=== PATIENT | female | born 1960 | race African-American/Black ===

== ENCOUNTER 2025-06-12 10:26 | Inpatient (IN) | payer MEDICARE, OTHER, SELFPAY ==
--- OUTSIDE RECORDS SUMMARY | 2024-11-14 03:49 | XMS_ITS ---
Author Organization [facility] Address [address] [place] [phone] Care Team Providers Care Cleaning Porter Name Role Phone Aide Adair Unavailable Unavailabl KEISHA Camp Unavailable [phone] Medications Medication SIG (Take, Route, Frequency, Duration) Notes Start Date End Date Status Gabapentin 100 MG 2 capsule at bedtime Oral; Duration: 30 days 1 capsule in the am and 2 capsules at bedtime 1 am and 2 capsules Active Spironolactone 25 MG Oral; Duration: 90 Days Active Sertraline HCl 25 MG Oral; Duration: 90 Days Active Cefdinir 300 MG Oral; Duration: 3 Days Active rOPINIRole HCl 0.5 MG TAKE 1 TABLET BY MOUTH TWICE DAILY Oral; Duration: 30 Days Active Triamcinolone Acetonide 0.1 % APPLY TOPICALLY TWICE DAILY TO RECTAL AREA External; Duration: 25 Days Active Atorvastatin Calcium 20 MG TAKE 1 TABLET BY MOUTH DAILY Oral; Duration: 90 Days Active Levothyroxine Sodium 112 MCG TAKE 1 TABLET BY MOUTH EVERY MORNING ON EMPTY STOMACH Oral; Duration: 90 Days Active Atenolol 100 MG TAKE 1 TABLET BY MOUTH EVERY DAY Oral; Duration: 90 Days Active NIFEdipine ER 60 MG TAKE 1 TABLET BY MOUTH EVERY DAY Oral; Duration: 90 Days Active Pentoxifylline ER 400 MG TAKE 1 TABLET BY MOUTH DAILY FOR LEG OR CIRCULATION Oral; Duration: 30 Days Active Losartan Potassium 100 MG TAKE 1 TABLET BY MOUTH DAILY Oral; Duration: 90 Days Active NIFEdipine ER 90 MG Oral; Duration: 30 Days Active NIFEdipine ER 90 MG TAKE 1 TABLET BY MOUTH DAILY EVERY MORNING Oral; Duration: 30 Days Active Problems Problem Type SNOMED Code ICD Code Onset Dates Problem Status W/U Status Risk Notes Problem End stage renal disease (89459908) End stage renal disease (N18.6) Active confirmed Problem Dependence on renal dialysis (233389730) Dependence on renal dialysis (Z99.2) Active confirmed Problem Peripheral arterial occlusive disease (724684634) Peripheral arterial occlusive disease (I77.9) Active confirmed Problem Essential hypertension (63852129) Essential hypertension (I10) Active confirmed Problem Mixed hyperlipidemia (759923178) Mixed hyperlipidemia (E78.2) Active confirmed Problem Hyperparathyroidism due to renal insufficiency (05757306) Hyperparathyroid ism, 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) Active confirmed Problem Anemia in chronic kidney disease (545740734) Anemia in chronic kidney disease (D63.1) Active confirmed Problem Chronic kidney disease stage 5 (329642307) Chronic kidney disease, stage 5 (N18.5) Active confirmed Problem Internal hemorrhoids (10451485) Grade I hemorrhoids (K64.0) Active confirmed Encounters Encounter Location Date Provider Diagnosis [facility] [address] [phone] 11/14/2024 KEISHA ABRAMS End stage renal disease N18.6 ; Dependence on renal dialysis Z99.2 ; Peripheral arterial occlusive disease I77.9 ; Essential hypertension I10 ; Mixed hyperlipidemia E78.2 ; Hyperparathyroidism, secondary renal N25.81 ; Anemia in chronic kidney disease D63.1 ; Chronic kidney disease, stage 5 N18.5 and Grade I hemorrhoids K64.0 Assessments Encounter Date Diagnosis (ICD Code) Assessment Notes Treatment Notes Treatment Clinical Notes Section Notes 11/14/2024 End stage renal disease (ICD-10 - N18.6) 11/14/2024 Dependence on renal dialysis (ICD-10 - Z99.2) 11/14/2024 Peripheral arterial occlusive disease (ICD-10 - I77.9) 11/14/2024 Essential hypertension (ICD-10 - I10) 11/14/2024 Mixed hyperlipidemia (ICD-10 - E78.2) 11/14/2024 Hyperparathyroidism , secondary renal (ICD-10 - N25.81) 11/14/2024 Anemia in chronic kidney disease (ICD-10 - D63.1) 11/14/2024 Chronic kidney disease, stage 5 (ICD-10 - N18.5) 11/14/2024 Grade I hemorrhoids (ICD-10 - K64.0) Plan Of Treatment Medication Medication Name Sig Start Date Stop Date Notes Gabapentin 100 MG 2 capsule at bedtime Oral; Duration: 30 days 1 am and 2 capsules Progress Notes * Roseanna ESPINOZADOB:1960 ( 65 yo F)Acc No.[id number]:11/14/2024 Progress Notes Patient: Roseanna BRASWELL Provider: Misa Abrams MD :1960 A ge:64 Y S ex:Female Date:11/14/2024 Address:[address] [place] [address] Subjective: * Chief Complaints: * * Medical History: * Medications: T aking Losartan Potassium 100 MG Tablet TAKE 1 TABLET BY MOUTH DAILY Oral , Taking NIFEdipine ER 90 MG Tablet Extended Release 24 Hour TAKE 1 TABLET BY MOUTH DAILY EVERY MORNING Oral , Taking NIFEdipine ER 90 MG Tablet Extended Release 24 Hour Oral , Taking Pentoxifylline ER 400 MG Tablet Extended Release TAKE 1 TABLET BY MOUTH DAILY FOR LEG OR CIRCULATION Oral , Taking Triamcinolone Acetonide 0.1 % Cream APPLY TOPICALLY TWICE DAILY TO RECTAL AREA External , Taking Atorvastatin Calcium 20 MG Tablet TAKE 1 TABLET BY MOUTH DAILY Oral , Taking Gabapentin 100 MG Capsule TAKE ONE CAPSULE BY MOUTH AT BEDTIME FOR LEG Oral , Taking Levothyroxine Sodium 112 MCG Tablet TAKE 1 TABLET BY MOUTH EVERY MORNING ON EMPTY STOMACH Oral , Taking NIFEdipine ER 60 MG Tablet Extended Release 24 Hour TAKE 1 TABLET BY MOUTH EVERY DAY Oral , Taking Atenolol 100 MG Tablet TAKE 1 TABLET BY MOUTH EVERY DAY Oral , Taking Sertraline HCl 25 MG Tablet Oral , Taking Spironolactone 25 MG Tablet Oral , Taking rOPINIRole HCl 0.5 MG Tablet TAKE 1 TABLET BY MOUTH TWICE DAILY Oral , Taking Cefdinir 300 MG Capsule Oral Objective: * Vitals: Assessment: * Assessment: 1. E nd stage renal disease - N18.6 (Primary) 2 . D ependence on renal dialysis - Z99.2 3 . P eripheral arterial occlusive disease - I77.9 4 . E ssential hypertension - I10 5 . M ixed hyperlipidemia - E78.2 & #160; 6 . H yperparathyroidism, secondary renal - N25.81 7 . A nemia in chronic kidney disease - D63.1 8 . C hronic kidney disease, stage 5 - N18.5 ? 9 . G rade I hemorrhoids - K64.0 Plan: * Treatment: * Billing Information: * Visit Code: * Procedure Codes: * Electronic signature of ALLEN ABRAMS MD on 06/12/2025 at 12:09 PM [employer] Sign off status: Pending * Provider: Misa Abrams MD Date: 0 11/14/2024 Generated for Everett gray/Ga/Lela on: 1 08/12/2024 12:09 PM [employer]
--- OUTSIDE RECORDS SUMMARY | 2025-06-11 09:30 | XMS_ITS | Encounter Summary ---
Author Organization [facility] Healthcare Address [address] [place] [address] Care Team Providers Care Concrete Pipe Maker Name Role Phone Stacey Abrams MD Unavailable [phone] Aide Adair MD Primary Care Prov ider Jordy Avila MD Unavailable [phone] Reason for Visit * Diagnostic Imaging (Routine) - Closed Specialty Diagnoses / Procedures Referred By Barak rai Referred To Contact Diagnoses Encounter for surgical aftercare following surgery on the circulatory system Procedures US Arterial Doppler Lower Extremity Bilateral Iman Ortiz, DO [id number] [place] [address] Phone: tel: fax: [facility] (All Locations) Referral ID Status Reason Start Date Expiration Date Visits Re quested Visits Authorized [id number] Closed 03/12/2025 04/11/2026 1 1 Encounter Details Date Type Department Care Team (Latest Contact Info) Description 06/11/2025 9:30 AM COMPUTATIONAL PHYSICIST Ancillary Procedure [facility] Vascular Lab Vascular Surgery [address] [facility] [address] [place] [address] Encounter for surgical aftercare following surgery on the circulatory system Social History Tobacco Use Types Packs/Day Years Used Date Smoking Tobacco: Former Cigarettes 0.5 37 1 976 - 2013 Smokeless Tobacco: Never Alcohol Use Standard Drinks/Week Comments Yes 0 (1 standard drink = 0.6 oz pur e alcohol) 2 drinks per month OASIS D0700: Social Isolation Answer Da te Recorded Frequency of experiencing loneliness or isolatio n Never 03/13/2025 OASIS A1250: Transportation Answer Date Recorded Lack of Transportation (Medical) No 03/13/2025 Lack of Transportation (Non-Medical) No 03/13/2025 Patient Unable or Declines to Respond No 03/13/2025 OASIS B1300: Health Literacy Answer Augusto e Recorded Frequency of needing help to read materials from doctor or pharmacy Sometimes 03/13/2025 [facility] Utilities Answer Date Recorded In the past 12 months has th e electric, gas, oil, or water company threatened to shut off services in your home? No 01/03/2025 Social Connection and Isolation Panel Answer Date Recorded In a typical week, how many times do you talk on the phone with family, friends, or neighbors? More than three times a week 01/03/2025 How often do you get togethe r with friends or relatives? More than three times a week 01/03/2025 How often do you attend chur ch or samaritan services? More than 4 times per year 01/03/2025 Do you belong to any clubs o r organizations such as yazdanism groups, unions, fraternal or athletic groups, or school groups? No 01/03/2025 How often do you attend meet ings of the clubs or organizations you belong to? Never 01/03/2025 Are you , , di vorced, , never , or living with a partner? 01/03/2025 Overall Financial Resource Strain (CARDIA) Answe r Date Recorded How hard is it for you to pa y for the very basics like food, housing, medical care, and heating? Somewhat hard 01/03/2025 PHQ-2 Answer Date Recorded PHQ-2 Total Score (If total score is 3 or more points, staff should administer the PHQ-9) 2 01/03/2025 Hunger Vital Sign Answer Date Recorded Within the past 12 months, y ou worried that your food would run out before you got the money to buy more. Never true 01/04/20 25 Within the past 12 months, t he food you bought just didn't last and you didn't have money to get more. Never true 01/03/2025 PRAPARE - Transportation Answer Date Re corded In the past 12 months, has l ack of transportation kept you from medical appointments or from getting medications? No 12/21 In the past 12 months, has l ack of transportation kept you from meetings, work, or from getting things needed for daily living? No 01/03/2025 Housing Stability Vital Sign Answer Augusto e Recorded In the last 12 months, was t here a time when you were not able to pay the mortgage or rent on time? No 01/03/2025 In the past 12 months, how m any times have you moved where you were living? 0 01/03/2025 At any time in the past 12 m [facility], were you homeless or living in a longterm (including now)? No 01/03/2025 AUDIT-C Answer Date Recorded Q1: How often do you have a drink containing alc ohol? Monthly or less 03/12/2025 Q2: How many drinks containi ng alcohol do you have on a typical day when you are drinking? 1 or 2 03/12/2025 Q3: How often do you have si x or more drinks on one occasion? Never 03/12/2025 Personal Safety Answer Date Recorded Have you ever been in or are you currently in a harmful physical or emotional relationship or is someone making you feel afraid or unsafe? Denies 02/04/2025 Comments No Sex and Gender Information Value Date Recorded Sex Assigned at Not on file Legal Sex Female 11:41 PM COMPUTATIONAL PHYSICIST Gender Identity Not on file Sexual Orientation Not on file documented as of this encounter Functional Status documented as of this encounter Plan of Treatment Not on file documented as of this encounter Procedures Procedure Name Priority Date/Time Associated Diagnosis Comments VL US ARTERIAL DUPLEX LOWER EXTREMITY BILATERAL Routine 06/11/2025 11:15 AM COMPUTATIONAL PHYSICIST Encounter for surgical aftercare following surgery on the circulatory system US ARTERIAL DOPPLER LOWER EXTREMITY BILATERAL Routine 06/11/2025 11:15 AM COMPUTATIONAL PHYSICIST Encounter for surgical aftercare following surgery on the circulatory system documented in this encounter Results * US Arterial Doppler Lower Extremity Bilateral (06/11/2025 11:15 AM COMPUTATIONAL PHYSICIST) Anatomical Region Laterality Modality Vascular Bilateral Ultrasound 06/11/2025 10:2 5 AM COMPUTATIONAL PHYSICIST Narrative 06/11/2025 12:40 PM COMPUTATIONAL PHYSICIST [facility] - Department of Vascular Surgery, Vascular Laboratory [address] [place] [id number] Lower Extremity Arterial Doppler Report Patient Name: RICHELLE ESPINOZA : 1960 Study Date: 06/11/2025 10:25:00 AM Sex: F Tech: Kristen Andrews RVT Location: [facility] Provider: IMAN ROTIZ Quality: Adequate Order Provider: IMAN ORTIZ PROCEDURES: Arterial Report: Bilateral lower extremity arterial Doppler exam at rest. INDICATIONS: Z48.812 Encounter for surgical aftercare following surgery on the circulatory system. MEASUREMENTS: Right Value Units Left Value Units Rt Brachial Pressure 169 mmHg Lt Brachial Pressure 159 mmHg Rt PATIENT OFFICE REP Pressure >254 mmHg Lt PATIENT OFFICE REP Pressure >254 mmHg Rt DPA Pressure 113 mmHg Lt DPA Pressure >254 mmHg Rt 1st Digit Pressure 84 mmHg Lt 1st Digit Pressure 71 mmHg Rt PT SUZANNE Resting N/C Lt PT SUZANNE Resting N/C Rt AT SUZANNE Resting 0.67 Lt AT SUZANNE Resting N/C Rt Digit/Arm Index 0.5 Lt Digit/Arm Index 0.42 Right Value Units Left Value Units FINDINGS: Performing School Speech Language Pathologist: Harleen Andrews RVT. Right All Levels: The right common femoral, popliteal, posterior tibial and anterior tibial artery waveforms are monophasic. Right Digits: The right digit waveform is dampened. Left Common Femoral Artery Analysis: The common femoral artery waveform is biphasic. Left Popliteal Artery Analysis: The popliteal artery waveform is monophasic with preserved sharp upstroke. Left Posterior Tibial Artery Analysis: The posterior tibial artery waveform is monophasic with preserved sharp upstroke. Left Anterior Tibial Artery Analysis: The anterior tibial artery waveform is monophasic with preserved sharp upstroke. Left Digits: The left digit waveform is dampened. CONCLUSIONS: 1. The ankle arteries are non-compressible bilaterally which is consistent with arterial calcification thus the Ankle/Brachial Indices are not obtainable. 2. Bilateral Digit/Arm Indices are abnormal (for reference, abnormal ANDREI is <0.6). 3. There is evidence of right leg arterial insufficiency at the level of aorta- iliac, common femoral (inflow) arteries. 4. There is evidence of left leg arterial insufficiency at the level of femoral-popliteal arteries. HISTORY: 02/04/2025 Intravascular lithotripsy with stenting left superficial femoral artery and the popliteal artery Balloon angioplasty left posterior tibial artery Intravascular ultrasound left superficial femoral artery, popliteal artery, posterior tibial artery 12/09/24 Right superficial femoral artery angioplasty and drug-eluting stenting Right popliteal artery drug coated balloon angioplasty Right posterior tibial artery angioplasty and stenting Open right superficial femoral and deep femoral artery thrombectomy with Renard balloon Right iliofemoral endarterectomy with patch angioplasty with bovine pericardium onto the SFA Two incision 4 compartment fasciotomies of the right leg - PREVIOUS STUDIES: Previous study on 03/12/2025 Bilateral: N/C. DISCLAIMER: The study images and the final report will be retained in the patient chart by the Vascular Laboratory for the legally required time period. This chart constitutes the legal record of any testing performed. ATTESTATION: I have reviewed and interpreted the pertinent images and measurements of this study. I attest to the conclusions in the final report that is provided above. Electronically Signed By: Joe Haynes MD [facility] [phone] 06/11/2025 11:46:55 AM COMPUTATIONAL PHYSICIST Procedure Note Joe Haynes MD - 06/11/2025 [facility] - Department of Vascular Surgery,Vascular Laboratory [address] [place] [id number] Lower Extremity Arterial Doppler Report Patient Name: RICHELLE ESPINOZA : 1960 Study Date: 06/11/2025 10:25:00 AM Sex: F Tech: Kristen Andrews RVT Location: [facility] Provider: IMAN ORTIZ Quality: Adequate Order Provider: IMAN ORTIZ PROCEDURES: Arterial Report: Bilateral lower extremity arterial Doppler exam at rest. INDICATIONS: Z48.812 Encounter for surgical aftercare following surgery on thecirculatory system. MEASUREMENTS: Right Value Units Left Value Units Rt Brachial Pressure 169 mmHg Lt Brachial Pressure 159 mmHg Rt PATIENT OFFICE REP Pressure >254 mmHg Lt PATIENT OFFICE REP Pressure >254 mmHg Rt DPA Pressure 113 mmHg Lt DPA Pressure >254 mmHg Rt 1st Digit Pressure 84 mmHg Lt 1st Digit Pressure 71 mmHg Rt PT SUZANNE Resting N/C Lt PT SUZANNE Resting N/C Rt AT SUZANNE Resting 0.67 Lt AT SUZANNE Resting N/C Rt Digit/Arm Index 0.5 Lt Digit/Arm Index 0.42 Right Value Units Left Value Units FINDINGS: Performing School Speech Language Pathologist: Harleen Andrews RVT. Right All Levels: The right common femoral, popliteal, posterior tibial and anterior tibialartery waveforms are monophasic. Right Digits: The right digit waveform is dampened. Left Common Femoral Artery Analysis: The common femoral artery waveform is biphasic. Left Popliteal Artery Analysis: The popliteal artery waveform is monophasic with preserved sharpupstroke. Left Posterior Tibial Artery Analysis: The posterior tibial artery waveform is monophasic with preserved sharpupstroke. Left Anterior Tibial Artery Analysis: The anterior tibial artery waveform is monophasic with preserved sharpupstroke. Left Digits: The left digit waveform is dampened. CONCLUSIONS: 1. The ankle arteries are non-compressible bilaterally which is consistentwith arterial calcification thus the Ankle/Brachial Indices are not obtainable. 2. Bilateral Digit/Arm Indices are abnormal (for reference, abnormal DAIis <0.6). 3. There is evidence of right leg arterial insufficiency at the level ofaorta- iliac, common femoral (inflow) arteries. 4. There is evidence of left leg arterial insufficiency at the level offemoral-popliteal arteries. HISTORY: 02/04/2025 Intravascular lithotripsy with stenting left superficial femoral arteryand the popliteal artery Balloon angioplasty left posterior tibial artery Intravascular ultrasound left superficial femoral artery, poplitealartery, posterior tibial artery 12/09/24 Right superficial femoral artery angioplasty and drug-eluting stenting Right popliteal artery drug coated balloon angioplasty Right posterior tibial artery angioplasty and stenting Open right superficial femoral and deep femoral artery thrombectomy withFogarty balloon Right iliofemoral endarterectomy with patch angioplasty with bovinepericardium onto the SFA Two incision 4 compartment fasciotomies of the right leg - PREVIOUS STUDIES: Previous study on 03/12/2025 Bilateral: N/C. DISCLAIMER: The study images and the final report will be retained in the patientchart by the Vascular Laboratory for the legally required time period. This chartconstitutes the legal record of any testing performed. ATTESTATION: I have reviewed and interpreted the pertinent images and measurements ofthis study. I attest to the conclusions in the final report that is provided above. Electronically Signed By: Joe Haynes MD [facility] [phone] 06/11/2025 11:46:55 AM COMPUTATIONAL PHYSICIST Iman Ortiz DO IMG US PROCEDURES Final Result * US Arterial Duplex Lower Extremity Bilateral (06/11/2025 11:15 AM COMPUTATIONAL PHYSICIST) Anatomical Region Laterality Modality Vascular Bilateral Ultrasound 06/11/2025 10:0 3 AM COMPUTATIONAL PHYSICIST Narrative 06/11/2025 12:40 PM COMPUTATIONAL PHYSICIST [facility] - Department of Vascular Surgery, Vascular Laboratory [address] [place] [address] [place] Lower Extremity Arterial Duplex Report Patient Name: RICHELLE ESPINOZA : 1960 Study Date: 06/11/2025 10:03:25 AM Sex: F Tech: Annie ANDREWS Location: [facility] Provider: IMAN ORTIZ Quality: Adequate Order Provider: IMAN ORTIZ PROCEDURES: Arterial Report: Bilateral Lower Extremity Arterial Duplex Exam. INDICATIONS: Z48.812 Encounter for surgical aftercare following surgery on the circulatory system. MEASUREMENTS: Right Value Units Left Value Units Rt STATISTICAL REPORTING ANALYST Dst PSV 117 cm/s Lt STATISTICAL REPORTING ANALYST Dst PSV 154 cm/s Rt Profunda Prx PSV 0 cm/s Lt Profunda Dst PSV 431 cm/s Rt Superficial Femoral Prx PSV 109 cm/s Lt Superficial Femoral Prx PSV 299 cm/s Rt Superficial Femoral Mid PSV 86 cm/s Lt Superficial Femoral Mid PSV 68 cm/s Rt Superficial Femoral Dst PSV 135 cm/s Lt Superficial Femoral Dst PSV 55 cm/s Rt Pop Prx PSV 47 cm/s Lt Pop Prx PSV 55 cm/s Rt Post Tibial Dst PSV 61 cm/s Lt Post Tibial Dst PSV 63 cm/s Rt Ant Tibial Dst PSV 39 cm/s Lt Ant Tibial Dst PSV 18 cm/s Rt Peroneal Dst PSV 0 cm/s Lt Peroneal Dst PSV 0 cm/s Right Value Units Left Value Units FINDINGS: Performing School Speech Language Pathologist: Harleen Andrews RVT. Right Common Femoral: The right common femoral waveform is monophasic. Right Profunda: Unable to visualize the right profunda artery. Right Proximal Superficial Femoral Artery: The right proximal femoral artery waveform is monophasic. Right Mid Superficial Femoral Artery: The right mid femoral artery waveform is monophasic. Right Distal Superficial Femoral Artery: The right distal femoral artery waveform is monophasic. Right Popliteal: The right popliteal waveform is monophasic. Right Posterior Tibial: The right posterior tibial waveform is monophasic. Right Anterior Tibial: The right distal anterior tibial waveform is retrograde and antegrade at the ankle via collaterals. Right Peroneal: The right peroneal artery waveform is absent. Left Common Femoral: The left common femoral waveform is biphasic. Left Profunda: Systolic velocity ratio in the left profunda femoral artery is 4.2 which is consistent with a >75% stenosis. Left Proximal Superficial Femoral Artery: Systolic velocity ratio in the left proximal superficial femoral artery is 2.9 which is consistent with a 50-75% stenosis. Systolic velocity ratio in the left proximal superficial femoral artery (at the STENT EDGE) is 4.98 which is consistent with a >75% stenosis. Left Mid Superficial Femoral Artery: The left mid femoral artery stent is patent with monophasic waveforms. Left Distal Superficial Femoral Artery: The left distal femoral artery stent is patent with monophasic waveforms. Left Popliteal: The left popliteal waveform is monophasic. Left Posterior Tibial: The left posterior tibial waveform is monophasic. Left Anterior Tibial: The left anterior tibial waveform is monophasic with multiple collaterals noted. Left Peroneal: The left peroneal artery waveform is absent. CONCLUSIONS: 1. A >75% stenosis is noted on the left: proximal superficial femoral artery at the prox STENT EDGE. 2. The right distal anterior tibial waveform is retrograde and antegrade at the ankle via collaterals. 3. A 50-75% stenosis is noted on the left: proximal superficial femoral artery. 4. OCCLUDED BILATERAL peroneal arteries. 5. Unable to visualize the right profunda artery. HISTORY: 02/04/2025 Intravascular lithotripsy with stenting left superficial femoral artery and the popliteal artery Balloon angioplasty left posterior tibial artery Intravascular ultrasound left superficial femoral artery, popliteal artery, posterior tibial artery 12/09/24 Right superficial femoral artery angioplasty and drug-eluting stenting Right popliteal artery drug coated balloon angioplasty Right posterior tibial artery angioplasty and stenting Open right superficial femoral and deep femoral artery thrombectomy with Renard balloon Right iliofemoral endarterectomy with patch angioplasty with bovine pericardium onto the SFA Two incision 4 compartment fasciotomies of the right leg - PREVIOUS STUDIES: Previous study on the RLE on 01/15/2025 and on the LLE on 03/12/2025. DISCLAIMER: The study images and the final report will be retained in the patient chart by the Vascular Laboratory for the legally required time period. This chart constitutes the legal record of any testing performed. ATTESTATION: I have reviewed and interpreted the pertinent images and measurements of this study. I attest to the conclusions in the final report that is provided above. Electronically Signed By: Joe Haynes MD [facility] [phone] 06/11/2025 11:47:14 AM COMPUTATIONAL PHYSICIST Procedure Note Joe Haynes MD - 06/11/2025 [facility] - Department of Vascular Surgery,Vascular Laboratory [address] [place] [address] [place] Lower Extremity Arterial Duplex Report Patient Name: RICHELLE ESPINOZA : 1960 Study Date: 06/11/2025 10:03:25 AM Sex: F Tech: Annie SHANKSROSIE Location: [facility] Ref Provider: IMAN ORTIZ Quality: Adequate Order Provider: IMAN ORTIZ PROCEDURES: Arterial Report: Bilateral Lower Extremity Arterial Duplex Exam. INDICATIONS: Z48.812 Encounter for surgical aftercare following surgery on thecirculatory system. MEASUREMENTS: Right Value Units Left Value Units Rt STATISTICAL REPORTING ANALYST Dst PSV 117 cm/s Lt STATISTICAL REPORTING ANALYST Dst PSV 154 cm/s Rt Profunda Prx PSV 0 cm/s Lt Profunda Dst PSV 431 cm/s Rt Superficial Femoral Prx PSV 109 cm/s Lt Superficial Femoral Prx PSV 299cm/s Rt Superficial Femoral Mid PSV 86 cm/s Lt Superficial Femoral Mid PSV 68cm/s Rt Superficial Femoral Dst PSV 135 cm/s Lt Superficial Femoral Dst PSV 55cm/s Rt Pop Prx PSV 47 cm/s Lt Pop Prx PSV 55 cm/s Rt Post Tibial Dst PSV 61 cm/s Lt Post Tibial Dst PSV 63 cm/s Rt Ant Tibial Dst PSV 39 cm/s Lt Ant Tibial Dst PSV 18 cm/s Rt Peroneal Dst PSV 0 cm/s Lt Peroneal Dst PSV 0 cm/s Right Value Units Left Value Units FINDINGS: Performing School Speech Language Pathologist: Harleen Andrews RVT. Right Common Femoral: The right common femoral waveform is monophasic. Right Profunda: Unable to visualize the right profunda artery. Right Proximal Superficial Femoral Artery: The right proximal femoral artery waveform is monophasic. Right Mid Superficial Femoral Artery: The right mid femoral artery waveform is monophasic. Right Distal Superficial Femoral Artery: The right distal femoral artery waveform is monophasic. Right Popliteal: The right popliteal waveform is monophasic. Right Posterior Tibial: The right posterior tibial waveform is monophasic. Right Anterior Tibial: The right distal anterior tibial waveform is retrograde and antegrade atthe ankle via collaterals. Right Peroneal: The right peroneal artery waveform is absent. Left Common Femoral: The left common femoral waveform is biphasic. Left Profunda: Systolic velocity ratio in the left profunda femoral artery is 4.2 whichis consistent with a >75% stenosis. Left Proximal Superficial Femoral Artery: Systolic velocity ratio in the left proximal superficial femoral artery is2.9 which is consistent with a 50-75% stenosis. Systolic velocity ratio in the leftproximal superficial femoral artery (at the STENT EDGE) is 4.98 which is consistentwith a >75% stenosis. Left Mid Superficial Femoral Artery: The left mid femoral artery stent is patent with monophasic waveforms. Left Distal Superficial Femoral Artery: The left distal femoral artery stent is patent with monophasicwaveforms. Left Popliteal: The left popliteal waveform is monophasic. Left Posterior Tibial: The left posterior tibial waveform is monophasic. Left Anterior Tibial: The left anterior tibial waveform is monophasic with multiple collateralsnoted. Left Peroneal: The left peroneal artery waveform is absent. CONCLUSIONS: 1. A >75% stenosis is noted on the left: proximal superficial femoralartery at the prox STENT EDGE. 2. The right distal anterior tibial waveform is retrograde and antegradeat the ankle via collaterals. 3. A 50-75% stenosis is noted on the left: proximal superficial femoralartery. 4. OCCLUDED BILATERAL peroneal arteries. 5. Unable to visualize the right profunda artery. HISTORY: 02/04/2025 Intravascular lithotripsy with stenting left superficial femoral arteryand the popliteal artery Balloon angioplasty left posterior tibial artery Intravascular ultrasound left superficial femoral artery, poplitealartery, posterior tibial artery 12/09/24 Right superficial femoral artery angioplasty and drug-eluting stenting Right popliteal artery drug coated balloon angioplasty Right posterior tibial artery angioplasty and stenting Open right superficial femoral and deep femoral artery thrombectomy withFogarty balloon Right iliofemoral endarterectomy with patch angioplasty with bovinepericardium onto the SFA Two incision 4 compartment fasciotomies of the right leg - PREVIOUS STUDIES: Previous study on the RLE on 01/15/2025 and on the LLE on 03/12/2025. DISCLAIMER: The study images and the final report will be retained in the patientchart by the Vascular Laboratory for the legally required time period. This chartconstitutes the legal record of any testing performed. ATTESTATION: I have reviewed and interpreted the pertinent images and measurements ofthis study. I attest to the conclusions in the final report that is provided above. Electronically Signed By: Joe Haynes MD [facility] [phone] 06/11/2025 11:47:14 AM COMPUTATIONAL PHYSICIST Iman Ortiz DO [facility] PROCEDURES Final Result documented in this encounter Visit Diagnoses Diagnosis Encounter for surgical aftercare following surgery on the circulatory system documented in this encounter Care Teams Concrete Pipe Maker Relationship Specialty Start Date End Date Aide Adair MD PCP - General 09/17/20 Stacey Abrams MD Referring Physician Nephrology 10/05/19 Jordy Avila MD 2 [facility] [address] [address] Consulting Physician Vascular & Interven Rad 10/10/24 documented as of this encounter
--- OUTSIDE RECORDS SUMMARY | 2025-06-11 10:00 | XMS_ITS | Encounter Summary ---
Author Organization [facility] Address [address] [place] [address] Phone Care Team Providers Care Poultry Breeder Name Role Phone Stacey Abrams MD Unavailable [phone] Aide Adair MD Primary Care Prov ider Jordy Avila MD Unavailable [phone] Reason for Referral * MRI/CAT/PET Scan (Routine) - Pending Review Specialty Diagnoses / Procedures Referred By Contac t Referred To Contact Radiology Diagnoses PAD (peripheral artery disease) Procedures CTA Abdominal Aorta And Bilateral Iliofemoral Runoff Kev Ortiz DO [address] [facility] [address] [place] [address] Phone: tel: fax: [address] [phone] Referral ID Status Reason Start Date Expiration Date V isits Requested Visits Authorized [id number] Pending Review 06/11/2025 07/11/2026 1 1 FIXER Encounter Details Date Type Department Care Team (Late st Contact Info) Description 06/11/2025 10:00 AM BELT FIXER Office Visit [facility] Medicine Vascular Surgery [address] [facility] [address] [place] [address] Kev Ortiz, [address] [place] [address] PAD (peripheral artery disease) (Primary Dx); BRBPR (bright red blood per rectum) Social History Tobacco Use Types Packs/Day Years Used Date Smoking Tobacco: Former Cigarettes 0.5 37 1 2012 Smokeless Tobacco: Never Alcohol Use Standard Drinks/Week [...] materials from doctor or pharmacy Sometimes 03/13/2025 [facility] Utilities Answer Date Recorded In the past 12 months has e electric, gas, oil, or water [employer] threatened to shut off services in your [...] often do you attend chur ch or caodaism services? More than 4 times per year 01/03/2025 Do you belong to any clubs o r organizations such as mandaen groups, unions, fraternal or athletic groups, or [...] any time in the past 12 [facility], were you homeless or living in a assisted (including now)? No 01/03/2025 AUDIT-C Answer Date [...] on file Legal Sex Female 11:41 PM BELT FIXER Gender Identity Not on file Sexual Orientation Not on file documented as of this encounter Last Filed Vital Signs Vital Sign Reading Time Taken Comments Blood Pressure 129/76 06/11/2025 10:47 AM BELT FIXER Pulse 60 06/11/2025 10:47 AM BELT FIXER Temperature - - Respiratory Rate - - Oxygen Saturation - - Inhaled Oxygen Concentration - - Weight 61.2 kg (135 lb) 06/11/2025 10:47 AM BELT FIXER Height 157.5 cm (5' 2) 06/11/2025 10:47 AM BELT FIXER Body Mass Index 24.69 06/11/2025 10:47 AM BELT FIXER documented in this encounter Functional Status documented as of this encounter Progress Notes * Kev Ortiz, DO - 06/11/2025 10:45 AM CST Patient: Roseanna Espinoza Date of : 1960 Date of Service: 06/11/2025 Consult requested by: Aide Adair MD PCP: Aide Adair MD Follow up Visit CC: Roseanna Espinoza is a 65 y.o. female who presents today for post op visit HPI: Her right groin is healed. Swelling is much better in the extremities on diuretics. Still on PD. Able to mobilize around her house. Still uses wheelchair for further distances and outside of the home. Neuropathic symptoms have improved on gabapentin. No resting ischemic like pain or pedal wounds onthe feet. Still taking DAPT aspirin and plavix and high dose statin. Having some bright red blood per rectum that has been going on for a while and has not been checkedout. 02/04/2025: Intravascular lithotripsy with stenting left superficial femoral artery and the popliteal artery Balloon angioplasty left posterior tibial artery Intravascular ultrasound left superficial femoral artery, popliteal artery, posterior tibial artery 12/09/2024: Right SFA angioplasty and drug-eluting stenting, right popliteal artery drug coated balloon angioplasty, right posterior tibial artery angioplasty and stenting, open right superficial anddeep femoral artery thrombectomy with Renard balloon, right iliofemoral endarterectomy with patch a ngioplasty with bovine pericardium onto the SFA. Two incision 4 compartment fasciotomies of the right leg for acute limb ischemia [place] 2B with a motor and sensory loss after a Angio-Seal accesssite complication. History of left EIA stent angioplasty, right JHONY stent angioplasty and unsuccessful recanalization of left SFA on 12/03/2024 w/ Dr. Avila (cardiology, at [facility]). She is on peritoneal dialysis. CURRENT OUTPATIENT MEDICATIONS: Current Outpatient Medications Medication Sig Dispense Refill acetaminophen 500 mg capsule Take 2 capsules (1,000 mg total) by mouth every 6 (six) hours as needed for pain 30 tablet 0 aspirin 81 mg chewable tablet Take 1 tablet (81 mg total) by mouth daily 30 tablet 0 atenolol (TENORMIN) 100 mg tablet Take 1 tablet (100 mg total) by mouth every morning atorvastatin (LIPITOR) 20 mg tablet Take 1 tablet (20 mg total) by mouth nightly calcium carbonate (TUMS) 500 mg (200 mg elemental calcium) chewable tablet Take 1 tablet/chew tab (500 mg total) by mouth as needed for indigestion or heartburn clopidogreL (PLAVIX) 75 mg tablet Take 1 tablet (75 mg total) by mouth daily 30 tablet 0 ergocalciferol (VITAMIN D) 50,000 unit capsule Take 1 capsule (50,000 Units total) by mouth once a week for 7 doses 4 capsule 0 gabapentin (NEURONTIN) 100 mg capsule Take 1 capsule (100 mg total) by mouth nightly levothyroxine (SYNTHROID) 112 mcg tablet Take 1 tablet (112 mcg total) by mouth daily before breakfast losartan (COZAAR) 100 mg tablet Take 1 tablet (100 mg total) by mouth every morning methocarbamoL (ROBAXIN) 500 mg tablet Take 1 tablet (500 mg total) by mouth 3 (three) times a day as needed for muscle spasms 60 tablet 0 NIFEdipine CC 90 mg 24 hr tablet Take 1 tablet (90 mg total) by mouth daily ondansetron ODT (ZOFRAN-ODT) 4 mg disintegrating tablet Take 1 tablet (4 mg total) by mouth every 4(four) hours as needed for nausea 20 tablet 0 oxyCODONE (ROXICODONE) 5 mg immediate release tablet Take 1 tablet (5 mg total) by mouth every 6 (six) hours as needed for pain 20 tablet 0 pentoxifylline ER (TRENtal) 400 mg CR tablet Take 1 tablet (400 mg total) by mouth daily senna (SENOKOT) 8.6 mg tablet Take 1 tablet by mouth nightly 30 tablet 0 senna-docusate (PERICOLACE) 8.6-50 mg Take 1 tablet by mouth daily 30 tablet 0 sertraline (ZOLOFT) 25 mg tablet Take 1 tablet (25 mg total) by mouth every morning sevelamer (RENAGEL) 800 mg tablet Take 2 tablets (1,600 mg total) by mouth 3 (three) times a day with meals spironolactone (ALDACTONE) 25 mg tablet Take 1 tablet (25 mg total) by mouth daily triamcinolone (KENALOG) 0.1 % cream Apply topically 2 (two) times a day To rectal area 80 g 2 No current facility-administered medications for this visit. ALLERGIES: No Known Allergies PHYSICAL EXAM: Vitals BP 129/76 Pulse 60 Ht 157.5 cm (5' 2) Wt 61.2 kg (135 lb) LMP (LMP Unknown) BMI 24.69 kg/m?? Wt Readings from Last 1 Encounters: 06/11/25 61.2 kg (135 lb) 157.5 cm (5' 2) General: No acute distress ENT: Normocephalic Lungs: Non labored breathing. Cardiac: Normal rate. Regular rhythm. Abdomen: Soft. Extremities: trace edema of the BLE. Fasciotomy sites healed. No foot wounds. R groin scarred in. Vascular: peaked monophasic right PT and peaked monophasic L PT signal. Neurologic: A&Ox3 Psychiatric: Normal mood and affect. Review of Laboratory: N/A Review of Radiographic Studies: I personally reviewed the images: Bilateral lower extremity lower extremity arterial duplex and ROSA from 06/11/2025: SUZANNE non compressible. Toe pressure 84/71 mmHg. Left profunda with PSV 431 cm/sec consistent with >75% stenosis and proximal SFA elevated velocities 299 with a 75% stenosis at the proximal stent edge and >50% stenosis of the proximal SFA. Patent RLE stents without stenosis. LLE arterial duplex and ROSA from 03/12/2025: left profunda moderate stenosis. Patent SFA pop PT. Toepressure of 168 mm Hg on the right. Toe pressure of 136 mm Hg on the right. ABIs from 01/15/2025: Toe pressure of 77 mm Hg on the right. SUZANNE on the AT LLE of 0.56 with immeasurable toe pressure. ABIs from 01/05/2025: Deferred for fasciotomy wounds. Toe pressure of 83 mm Hg on the right. SUZANNE onthe left lower extremity 0.6 with a toe pressure of 25 mm Hg. 01/01/2025: CT angiogram of the abdomen and pelvis with bilateral lower extremity runoff demonstrating long segment SFA occlusion with reconstitution of the popliteal artery. There is heavy calcific disease of the tibial vessels. Her great saphenous veins bilaterally did not appear large enough andcaliber to support use as a bypass conduit. Assessment/Plan: (I73.9) PAD (peripheral artery disease) (primary encounter diagnosis) Plan: CTA Abdominal Aorta And Bilateral Iliofemoral Runoff (K62.5) BRBPR (bright red blood per rectum) 64-year-old female who is status post emergent revascularization of the RLE with groin wound breakdown status post debridement and wound vac placement who now presents for follow up. LLE complex revasc for CLTI with rest pain and wounds, now healed. Decreased from prior but normal BL toe pressures.No ischemic resting pain or wounds in the feet bilaterally. Continue other PAD medications as directed. Ideally, she probably should get a left femoral endart and profundaplasty. Don't have updated cross sectional imaging for case planning. She should get seen by her PCM about the bright red blood per rectum. RTC 1 month with CTA A/P AIF. Kev Ortiz DO Legal Document Assistant completed with [employer]. Legal Document Assistant variances may occur. FIXER documented in this encounter Plan of Treatment Scheduled Orders Name Type Priority Associated Diagnoses Orde r Schedule CTA Abdominal Aorta And Bilateral Iliofemoral Runoff Imaging Schedule Routine, Read Routine (OP Routine) PAD (peripheral artery disease) Expected: 07/11/2025, Expires: 12/09/2026 documented as of this encounter Visit Diagnoses Diagnosis PAD (peripheral artery disease)- Primary Unspecified peripheral vascular disease BRBPR (bright red blood per rectum) Hemorrhage of rectum and anus documented in this encounter Care Teams Poultry Breeder Relationship Specialty Start Date End Date Chandana-Aide Mahajan MD PCP - General 09/17/20 Stacey Abrams MD Referring Physician Nephrology 10/05/19 Jordy Avila MD [address] [place] [address] [place] [id number] Consulting Physician Vascular & Interven Rad 10/10/24 documented as of this encounter
[2025-06-12] VITALS (15 sets, daily range): BP systolic 86–148; BP diastolic 37–93; PULSE 60–87; RESP 14–18; TEMP 36.5–37; O2SAT 95–100; BMI 26.5
[2025-06-12 11:54] LABS: Immature Granulocyte Percent A 0.6 % (0-0.5); Lymphocytes Absolute Auto 1.41 K/mm3 (0.9-3.2); Mean Corpuscular HGB Conc 31.7 g/dl (32-36); Mean Corpuscular Hemoglobin 31.2 pg (26-34); Mean Corpuscular Volume 98.2 fl (80-100); Nucleated Red Blood Cells Absolute Auto 0.000 K/mm3 (0.0-0.012); Nucleated Red Blood Cells Perc 0.0 % (0.0-0.2); Platelet Count Result 288 k/mm3 (150-375); Red Blood Count 1.70 M/mm3 (4.2-5.4); White Blood Count 6.2 K/mm3 (4.5-10.0)
[2025-06-12 12:04] LABS: Hematocrit 16.7 % (37.0-47.0); Hemoglobin 5.3 g/dL (12.0-15.0)
--- OUTSIDE RECORDS SUMMARY | 2025-06-12 12:08 | XMS_ITS ---
Author Organization [facility] Physician Office Building [address] [place] [id number] Care Team Providers Care Spooling Supervisor Name Role Phone Stacey Abrams MD Unavailable [phone] Aide Adair MD Primary Care Prov ider Jordy Avila MD Unavailable [phone] Dialysis Access Sites Type Status Location Placement Date Removal Da te Peritoneal Dialysis Catheter Left lower abdomen Active Left Abdomen (side) - Lower Hemodialysis Cath Triple 12/10/24 Non-tunneled catheter Right Internal Jugular Inactive Right Neck (side) - Anterior 12/10/2024 12/12/2024 Procedures Procedure Name Priority Date/Time Associated Diagnosis Comments US ARTERIAL DOPPLER LOWER EXTREMITY BILATERAL Routine 06/11/2025 11:15 AM ARCADE ATTENDANT Encounter for surgical aftercare following surgery on the circulatory system VL US ARTERIAL DUPLEX LOWER EXTREMITY BILATERAL Routine 06/11/2025 11:15 AM ARCADE ATTENDANT Encounter for surgical aftercare following surgery on the circulatory system US ARTERIAL DUPLEX LOWER EXTREMITY LEFT LIMITED Routine 03/12/2025 11:50 AM CDT Encounter for surgical aftercare following surgery on the circulatory system US ARTERIAL DOPPLER LOWER EXTREMITY BILATERAL Routine 03/12/2025 11:50 AM CDT Encounter for surgical aftercare following surgery on the circulatory system COLONOSCOPY 12/08/2024 8:00 AM CDT HEPATITIS PANEL, ACUTE Routine 06/08/2017 8:08 PM ARCADE ATTENDANT from Last 3 Months or Most Recently Relevant to Health Maintenance Allergies No known active allergies Medications atenolol (TENORMIN) 100 mg tabletIndications:hy pertension Take 1 tablet (100 mg total) by mouth every morning Active losartan (COZAAR) 100 mg tabletIndications:hy pertension Take 1 tablet (100 mg total) by mouth every morning Active levothyroxine (SYNTHROID) 112 mcg tabletIndications:hy pothyroidism Take 1 tablet (112 mcg total) by mouth daily before breakfast Active sertraline (ZOLOFT) 25 mg tabletIndications:An xiety with Depression Take 1 tablet (25 mg total) by mouth every morning 023 Active spironolactone (ALDACTONE) 25 mg tabletIndications:As cites,hypertension Take 1 tablet (25 mg total) by mouth every morning Active sevelamer (RENAGEL) 800 mg tabletIndications:Re nal Osteodystrophy with Hyperphosphatemia Take 2 tablets (1,600 mg total) by mouth 3 (three) times a day with meals Active atorvastatin (LIPITOR) 20 mg tabletIndications:hy perlipidemia Take 1 tablet (20 mg total) by mouth nightly 025 Active triamcinolone (KENALOG) 0.1 % cream Apply topically 2 (two) times a day To rectal area 80 g 2 025 Active Additional Information Patient taking differently: 1 Applicationtopical2 times daily PRN, irritation, rash, To rectal area,Indications: Skin Inflammation, skin rash, Informant: Self, Reported on 02/04/2025 NIFEdipine CC 90 mg 24 hr tabletIndications:ht n Take 1 tablet (90 mg total) by mouth every morning 025 Active calcium carbonate (TUMS) 500 mg (200 mg elemental calcium) chewable tabletIndications:hy pocalcemia Take 1 tablet/chew tab (500 mg total) by mouth every morning Active acetaminophen 500 mg capsule Take 2 capsules (1,000 mg total) by mouth every 6 (six) hours as needed for pain 30 tablet 025 Active Additional Information Patient taking differently:1,000 mg oral Every 6 hours PRN, pain,Indications: Pain, Informant: Self, Reported on 02/04/2025 aspirin 81 mg chewable tablet Take 1 tablet (81 mg total) by mouth daily 30 tablet 025 2025 Active Additional Information Patient taking differently:81 mg oralEvery morning, Indications: Pain, Informant: Self, Reported on 02/04/2025 methocarbamoL (ROBAXIN) 500 mg tablet Take 1 tablet (500 mg total) by mouth 3 (three) times a day as needed for muscle spasms 60 tablet 025 Active Additional Information Patient taking differently:500 mg oral 3 times daily PRN, muscle spasms,Indications: Muscle Spasm, Informant: Self, Reported on 02/04/2025 ergocalciferol (VITAMIN D) 50,000 unit capsule Take 1 capsule (50,000 Units total) by mouth once a week for 7 doses 4 capsule 025 Active Additional Information Patient taking differently:50,000 Units oral Weekly,Take on Sunday, Indications: Vitamin D Deficiency, Informant: Self, Reported on 02/04/2025 senna (SENOKOT) 8.6 mg tablet Take 1 tablet by mouth nightly 30 tablet 025 2025 Active Additional Information Patient taking differently:1 tablet oral Nightly,Indications: constipation, Informant: Self, Reported on 02/04/2025 pentoxifylline ER (TRENtal) 400 mg CR tablet Take 1 tablet (400 mg total) by mouth daily 025 Active Additional Information Patient taking differently:400 mg oralEvery morning, Informant: Self, Reported on 02/04/2025 clopidogreL (PLAVIX) 75 mg tablet Take 1 tablet (75 mg total) by mouth daily 30 tablet 025 Active Additional Information Patient taking differently:75 mg oralEvery morning, Indications: Cerebral Thromboembolism Prevention, Thrombosis Prevention after PCI, Informant: Self, Reported on 02/04/2025 rOPINIRole (REQUIP) 0.5 mg tabletIndications:Re stless Legs Syndrome Take 1 tablet (0.5 mg total) by mouth nightly Active oxyCODONE (ROXICODONE) 5 mg immediate release tabletIndications:Pa in Take 1 tablet (5 mg total) by mouth every 6 (six) hours as needed for pain 30 tablet 025 Active gabapentin (NEURONTIN) 100 mg capsuleIndications:N europathic Pain Take 2 capsules (200 mg total) by mouth 3 (three) times a day 180 capsule 2 025 Active gabapentin (NEURONTIN) 100 mg capsuleIndications:D iabetic Peripheral Neuropathy Take 200 mg by mouth 2 (two) times a day. 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 -daily CBC -correct as needed Abscess 01/03/2025 Assessment & Plan (01/06/2025 7:10 AM CDT): - CT-demonstrated intramuscular abscesses within R tibialis anterior/gastrocnemius - Fasciotomy sites remain well-approximated w/o significant erythema nor palpable subjacent collections, no expressible discharge on exam - ACCS following, continue antibiotic management for now, non surgical. --- recommend application of Aquacel AG dressing to areas of superficial dehiscence on medial superior and lateral inferior fasciotomy incisions - 01/05 If still admitted next week, call ACCS back for possible suture removal. Wound dehiscence 01/01/2025 Assessment & Plan (01/08/2025 8:06 AM CDT): presents with R groin wound dehiscence. She first noticed wound break down 3 to 4 days ago and it has progressively worsened and now spans the entire wound. She has had some worsening wound discharge over this time which she describes as yellow/blood tinged. She denies any fevers/chills or symptoms of claudication in her RLE. She has mild tenderness over her incisions (fasciotomy/groin incisions). She continues to have LLE claudication. - OR 01/02 for right groin debridement and wound vac placement - Wound vac changed 01/05, some superficial bleeding following, s/p silver nitrate X2, monitor for hemostasis and then suture. S/p vac change 01/07, plan to change 01/09. - OR cultures growing: Klebsiella pneumoniae, E. Coli, mixed aerobic and anaerobic microorganisms -cont cefepime. Vanc last given 01/03, trough 15.7 yesterday, should be redosed with at 15 or lower. - ADAT - q4 NV checks and VS - Wound vac set up for outpatient SOC 01/11. - ID Final: - Discontinue vancomycin and cefepime - Start amoxicillin-clavulanate 500-125 every 12 hours adjusted for peritoneal dialysis - Start ciprofloxacin 500mg every 24 hours adjusted for peritoneal dialysis - Continue antibiotics complete 10-day treatment course (01/02-01/11) Depression 12/12/2024 Assessment & Plan (12/12/2024 10:03 AM CDT): home sertraline 25mg qAM ABLA (acute blood loss anemia) 12/12/2024 Assessment & Plan (12/14/2024 10:11 AM CDT): Acute on chronic. Chronic 2/2 ESRD. EBL 1.2 L in OR, s/p 5 unit RBC - Transfuse as needed, goal Hgb >7 - 12/11: Hgb 6.2 -> 1 unit RBC -> Hgb 8.3. No signs of active bleeding. Favor fluid shifts. - 12/14: Pt required 1u pRBC overnight with repeat Hg 6.7 afterwards. Giving another 1u pRBC Hypothyroidism 12/12/2024 Assessment & Plan (12/12/2024 10:07 AM CDT): -cont home synthroid History of fasciotomy 12/12/2024 Assessment & Plan (12/12/2024 10:07 AM CDT): Right calf fasciotomies, open - dressed with WTD, Kerlex, and BRUCE wraps. - Fasciotomies daily dressing change - 12/12: S/p fasciotomies closure. Vernon drain placed Acute lower limb ischemia 12/10/2024 Assessment & Plan (12/13/2024 11:21 AM CDT): 12/03 OR: Elective BLE angiogram, L EIA EDGE RUNNER+stent, R JHONY EDGE RUNNER+stent, unsuccessful recan of L SFA (Dr. Avila at [facility]) - 12/09 OR: R SFA cutdown and repair of PSA, R SFA to PT EDGE RUNNER/DCB. R GEOINT ANALYST and SFA endarterectomy. Right calf fasciotomies. - Plavix 300mg loading dose per tube now and 75mg daily starting tomorrow. - determine when to restart ASA - Q4hr NV checks BLE - Long-term, will be on DAPT - Right groin Provera wound vac in place - 12/12 OR ([facility]) - fasciotomy closure - 12/13: R groin wound vac taken down; punctate bleeding noted from site away from groin incision; covered with betadine and dry gauze Hypertensive urgency 12/08/2024 Lower GI bleed 12/07/2024 Assessment & Plan (12/12/2024 10:04 AM CDT): s/p colonoscopy 12/08 at : Large, bleeding external and internal hemorrhoids were found and suspected to be source of bleed. Scattered diverticula. Several biopsies performed. - Large (3cm) polyp removed during colonoscopy 12/08. Follow-up pathology. - Repeat colonoscopy in 1 year for surveillance. - originally scheduled for EUA and possible stapled hemorrhoidalpexy, possible hemorrhoidectomy with Dr. Marcus eng on 12/10 (cancelled given her transfer to [facility]) - CTM for bleeding, trend H/H Hemorrhoids- RECTAL, chronic bleeding 12/07/2024 Anemia- CKD, plus Rectal bleeding 12/07/2024 Acute post-hemorrhagic anemia 12/07/2024 Primary hypertension 11/09/2024 Assessment & Plan (01/05/2025 5:30 AM CDT): - Continue home atenolol, losartan, spironolactone, nifedipine -goal normotension - VS q 4 hrs and prn Assessment & Plan (12/12/2024 10:04 AM CDT): home p.o. losartan, nifedipine, atenolol, spironolactone, hydralizine 25 mg TID -held in the ICU. 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 - Nystatin oral stopped after IV ABX stopped Assessment & Plan (12/13/2024 11:21 AM CDT): peritoneal dialysis at home. Anuric at baseline - Nephrology consulted, started CRRT - hold home sevelamer - 12/12: Switched from CRRT to peritoneal dialysis - continue with PD per nephrology PAOD (peripheral arterial occlusive disease) Assessment & Plan (01/08/2025 8:02 AM CDT): s/p BLE angio via R GEOINT ANALYST access, w/ left EIA stent angioplasty, right JHONY stent angioplasty and unsuccessful recanalization of left SFA on 12/03 at OSH c/b R GEOINT ANALYST pseudoaneurysm with failed thrombin injection and subsequent RLE ALI s/p R SFA cutdown and repair of PSA, R SFA to PT EDGE RUNNER/DCB. R GEOINT ANALYST and SFA endarterectomy, 4 compartment fasciotomies (12/09) presents with R groin wound dehiscence. WBC normal, CT with simple fluid collection below dehiscence. - See wound dehiscense - Continue asa/ statin. Has been having trouble obtaining plavix per consult note. - Patient also noting symptoms on the left side. Notes toes are numb. - ROSA's completed, digit pressure 25. On further discussion, toes have been numb for weeks, would like to avoid intervention on other leg when currently with wound dehiscence and infection. Will address once recovered. No need for heparin gtt currently. Other idiopathic peripheral autonomic neuropathy Social History Tobacco Use Types Packs/Day Years Used Date Smoking Tobacco: Former Cigarettes 0.5 37 1 6 - 2012 Smokeless Tobacco: Never Alcohol Use Standard [...] materials from doctor or pharmacy Sometimes 03/13/2025 [facility] Utilities Answer Date Recorded In the past 12 months has e [employer], oil, or water [employer] threatened to shut off services in your [...] week 01/03/2025 How often do you attend [facility] or hoahaoism services? More than 4 times per year 01/03/2025 Do you belong to any clubs o r organizations such as restoration groups, unions, fraternal or athletic groups, or [...] any time in the past 12 m [facility], were you homeless or living in a chcf (including now)? No 01/03/2025 AUDIT-C Answer Date [...] on file Legal Sex Female 11:41 PM ARCADE ATTENDANT Gender Identity Not on file Sexual Orientation Not on file Last Filed Vital Signs Vital Sign Reading Time Taken Comments Blood Pressure 129/76 06/11/2025 10:47 AM ARCADE ATTENDANT Pulse 60 06/11/2025 10:47 AM ARCADE ATTENDANT Temperature 36.6 C (97.9 F) 03/12/2025 11:39 AM CDT Respiratory Rate 18 03/13/2025 11:30 AM CDT Oxygen Saturation 96% 03/05/2025 11:49 AM CDT Inhaled Oxygen Concentration - - Weight 61.2 kg (135 lb) 06/11/2025 10:47 AM ARCADE ATTENDANT Height 157.5 cm (5' 2) 06/11/2025 10:47 AM ARCADE ATTENDANT Body Mass Index 24.69 06/11/2025 10:47 AM ARCADE ATTENDANT Results * US Arterial Duplex Lower Extremity Bilateral (06/11/2025 11:15 AM ARCADE ATTENDANT) Anatomical Region Laterality Modality Vascular Bilateral Ultrasound 06/11/2025 10:0 3 AM ARCADE ATTENDANT Narrative 06/11/2025 12:40 PM ARCADE ATTENDANT [facility] - Department of Vascular Surgery, Vascular Laboratory [address] [place] [address] Ruby Lower Extremity Arterial Duplex Report Patient Name: RICHELLE ESPINOZA : 1960 Study Date: 06/11/2025 10:03:25 AM Sex: F Tech: Annie ANDREWS Location: [facility] Provider: IMAN ORTIZ Quality: Adequate Order Provider: IMAN ORTIZ PROCEDURES: Arterial Report: Bilateral Lower Extremity Arterial Duplex Exam. INDICATIONS: Z48.812 Encounter for surgical aftercare following surgery on the circulatory system. MEASUREMENTS: Right Value Units Left Value Units Rt GEOINT ANALYST Dst PSV 117 cm/s Lt GEOINT ANALYST Dst PSV 154 cm/s Rt Profunda [...] Value Units Left Value Units FINDINGS: Performing Audio/Video Technician: Harleen Andrews RVT. Right Common Femoral: The [...] above. Electronically Signed By: Joe Haynes MD [facility] [phone] 06/11/2025 11:47:14 AM ARCADE ATTENDANT Procedure Note Joe Haynes MD - 06/11/2025 [facility] - Department of Vascular Surgery,Vascular Laboratory [address] [place], [place] [id number] Ruby Lower Extremity Arterial Duplex Report Patient Name: RICHELLE ESPINOZA : 1960 Study Date: 06/11/2025 10:03:25 AM Sex: F Tech: Annie ANDREWS Location: [facility] Provider: IMAN ORTIZ Quality: Adequate Order Provider: IMAN ORTIZ PROCEDURES: Arterial Report: Bilateral Lower Extremity Arterial Duplex Exam. INDICATIONS: Z48.812 Encounter for surgical aftercare following surgery on thecirculatory system. MEASUREMENTS: Right Value Units Left Value Units Rt GEOINT ANALYST Dst PSV 117 cm/s Lt GEOINT ANALYST Dst PSV 154 cm/s Rt Profunda [...] Value Units Left Value Units FINDINGS: Performing Audio/Video Technician: Harleen Andrews RVT. Right Common Femoral: The [...] above. Electronically Signed By: Joe Haynes MD [facility] [phone] 06/11/2025 11:47:14 AM ARCADE ATTENDANT Iman Ortiz DO [facility] [place] PROCEDURES Final Result * US Arterial Doppler Lower Extremity Bilateral (06/11/2025 11:15 AM ARCADE ATTENDANT) Anatomical Region Laterality Modality Vascular Bilateral Ultrasound 06/11/2025 10:2 5 AM ARCADE ATTENDANT Narrative 06/11/2025 12:40 PM ARCADE ATTENDANT [facility] - Department of Vascular Surgery, Vascular Laboratory [address] [place] [address] Lower Extremity Arterial Doppler Report Patient Name: RICHELLE ESPINOZA : 1960 Study Date: 06/11/2025 10:25:00 AM Sex: F Tech: Kristen Andrews RVT Location: [facility] Provider: IMAN ORTIZ Quality: Adequate Order Provider: IMAN ORTIZ PROCEDURES: Arterial Report: Bilateral lower extremity arterial Doppler exam at rest. INDICATIONS: Z48.812 Encounter for surgical aftercare following surgery on the circulatory system. MEASUREMENTS: Right Value Units Left Value Units Rt Brachial Pressure 169 mmHg Lt Brachial Pressure 159 mmHg Rt EDGE RUNNER Pressure >254 mmHg Lt EDGE RUNNER Pressure >254 mmHg Rt DPA Pressure 113 mmHg Lt DPA Pressure >254 mmHg Rt 1st Digit Pressure 84 mmHg Lt 1st Digit Pressure 71 mmHg Rt PT SUZANNE Resting N/C Lt PT SUZANNE Resting N/C Rt AT SUZANNE Resting 0.67 Lt AT SUZANNE Resting N/C Rt Digit/Arm Index 0.5 Lt Digit/Arm Index 0.42 Right Value Units Left Value Units FINDINGS: Performing Audio/Video Technician: Harleen Andrews RVT. Right All Levels: The [...] above. Electronically Signed By: Joe Haynes MD [facility] [phone] 06/11/2025 11:46:55 AM ARCADE ATTENDANT Procedure Note Joe Haynes MD - 06/11/2025 [facility] - Department of Vascular Surgery,Vascular Laboratory [address] [place], [place] [id number] Lower Extremity Arterial Doppler Report Patient Name: RICHELLE ESPINOZA : 1960 Study Date: 06/11/2025 10:25:00 AM Sex: F Tech: Kristen Andrews [facility] Location: [facility] Ref Provider: IMAN ORTIZ Quality: Adequate Order Provider: IMAN ORTIZ PROCEDURES: Arterial Report: Bilateral lower extremity arterial Doppler exam at rest. INDICATIONS: Z48.812 Encounter for surgical aftercare following surgery on thecirculatory system. MEASUREMENTS: Right Value Units Left Value Units Rt Brachial Pressure 169 mmHg Lt Brachial Pressure 159 mmHg Rt EDGE RUNNER Pressure >254 mmHg Lt EDGE RUNNER Pressure >254 mmHg Rt DPA Pressure 113 mmHg Lt DPA Pressure >254 mmHg Rt 1st Digit Pressure 84 mmHg Lt 1st Digit Pressure 71 mmHg Rt PT SUZANNE Resting N/C Lt PT SUZANNE Resting N/C Rt AT SUZANNE Resting 0.67 Lt AT SUZANNE Resting N/C Rt Digit/Arm Index 0.5 Lt Digit/Arm Index 0.42 Right Value Units Left Value Units FINDINGS: Performing Audio/Video Technician: Harleen Andrews RVT. Right All Levels: The [...] above. Electronically Signed By: Joe Haynes MD [facility] [phone] 06/11/2025 11:46:55 AM ARCADE ATTENDANT Iman Ortiz DO [facility] US PROCEDURES Final Result * US Arterial Duplex Lower Extremity Left Limited (03/12/2025 11:50 AM CDT) Anatomical Region Laterality Modality Vascular Left Ultrasound 03/12/2025 10:5 3 AM CDT Narrative 03/13/2025 10:30 AM CDT [facility] - Department of Vascular Surgery, Vascular Laboratory [address] [place] [address] Ruby Lower Extremity Arterial Duplex Report Patient Name: RICHELLE ESPINOZA : 1960 Study Date: 03/12/2025 10:53:19 AM Gender: F Tech: BAD Location: [facility] Provider: IMAN ORTIZ Quality: Adequate Order Provider: IMAN ORTIZ PROCEDURES: Arterial Report: Left Lower Extremity Arterial Duplex Exam. INDICATIONS: Z48.812 Encounter for surgical aftercare following surgery on the circulatory system. MEASUREMENTS: Left Value Units Lt GEOINT ANALYST Dst PSV 131 cm/s Lt Profunda Dst PSV 399 cm/s Lt Superficial Femoral Prx PSV 171 cm/s Lt Superficial Femoral Mid PSV 48 cm/s Lt Superficial Femoral Dst PSV 36 cm/s Lt Pop Prx PSV 58 cm/s Lt Post Tibial Mid PSV 105 cm/s Lt Ant Tibial Mid PSV 18 cm/s Lt Peroneal Mid PSV 124 cm/s Left Value Units FINDINGS: Performing Audio/Video Technician: Uma Baron RVT. Left Common Femoral: The left common femoral waveform is multiphasic. Left Profunda: The left profunda waveform is monophasic. Systolic velocity ratio in the left profunda femoral artery is 3.66 which is consistent with a 50-75% stenosis. Left Proximal Superficial Femoral Artery: The left proximal femoral artery waveform is monophasic. Left Mid Superficial Femoral Artery: The left mid femoral artery waveform is monophasic. Left Distal Superficial Femoral Artery: The left distal femoral artery waveform is monophasic. Left Popliteal: The left popliteal waveform is monophasic. Left Posterior Tibial: The left posterior tibial waveform is monophasic. Left Anterior Tibial: The left anterior tibial waveform is monophasic. Left Peroneal: The left peroneal artery waveform is monophasic. CONCLUSIONS: 1. Duplex imaging of the left lower extremity [place] arteries reveals patent vessels with no flow limiting lesions identified. Flow velocities as measured above. See Ankle Brachial Index report. 2. Patent left superficial femoral and popliteal artery stent. HISTORY: 02/04/25 Intravascular lithotripsy with stenting left superficial femoral artery and the popliteal artery Balloon angioplasty left posterior tibial artery 12/09/24 Right superficial femoral artery angioplasty and drug-eluting stenting Right popliteal artery drug coated balloon angioplasty Right posterior tibial artery angioplasty and stenting Open right superficial femoral and deep femoral artery thrombectomy with Renard balloon Right iliofemoral endarterectomy with patch angioplasty with bovine pericardium onto the SFA Two incision 4 compartment fasciotomies of the right leg - PREVIOUS STUDIES: No previous studies for comparison. DISCLAIMER: The study images and the final [...] above. Electronically Signed By: Joe Haynes MD [facility] [phone] 03/13/2025 9:39:11 AM CDT Procedure Note Joe Haynes MD - 03/13/2025 [facility] - Department of Vascular Surgery,Vascular Laboratory [address] [place] [address] Ruby Lower Extremity Arterial Duplex Report Patient Name: RICHELLE ESPINOZA : 1960 Study Date: 03/12/2025 10:53:19 AM Gender: F Tech: BAD Location: [facility] Ref Provider: IMAN ORTIZ Quality: Adequate Order Provider: IMAN ORTIZ PROCEDURES: Arterial Report: Left Lower Extremity Arterial Duplex Exam. INDICATIONS: Z48.812 Encounter for surgical aftercare [place]. MEASUREMENTS: Left Value Units Lt GEOINT ANALYST Dst PSV 131 cm/s Lt Profunda Dst PSV 399 cm/s Lt Superficial Femoral Prx PSV 171 cm/s Lt Superficial Femoral Mid PSV 48 cm/s Lt Superficial Femoral Dst PSV 36 cm/s Lt Pop Prx PSV 58 cm/s Lt Post Tibial Mid PSV 105 cm/s Lt Ant Tibial Mid PSV 18 cm/s Lt Peroneal Mid PSV 124 cm/s Left Value Units FINDINGS: Performing Audio/Video Technician: Uma Baron RVT. Left Common Femoral: The left common femoral waveform is multiphasic. Left Profunda: The left profunda waveform is monophasic. Systolic velocity ratio in theleft profunda femoral artery is 3.66 which is consistent with a 50-75% stenosis. Left Proximal Superficial Femoral Artery: The left proximal femoral artery waveform is monophasic. Left Mid Superficial Femoral Artery: The left mid femoral artery waveform is monophasic. Left Distal Superficial Femoral Artery: The left distal femoral artery waveform is monophasic. Left Popliteal: The left popliteal waveform is monophasic. Left Posterior Tibial: The left posterior tibial waveform is monophasic. Left Anterior Tibial: The left anterior tibial waveform is monophasic. Left Peroneal: The left peroneal artery waveform is monophasic. CONCLUSIONS: 1. Duplex imaging of the left lower extremity chinik arteries revealspatent vessels with no flow limiting lesions identified. Flow velocities as measured above.See Ankle Brachial Index report. 2. Patent left superficial femoral and popliteal artery stent. HISTORY: 02/04/25 Intravascular lithotripsy with stenting left superficial femoral arteryand the popliteal artery Balloon angioplasty left posterior tibial artery 12/09/24 Right superficial femoral artery angioplasty and drug-eluting stenting Right popliteal artery drug coated balloon angioplasty Right posterior tibial artery angioplasty and stenting Open right superficial femoral and deep femoral artery thrombectomy withFogarty balloon Right iliofemoral endarterectomy with patch angioplasty with bovinepericardium onto the SFA Two incision 4 compartment fasciotomies of the right leg - PREVIOUS STUDIES: No previous studies for comparison. DISCLAIMER: The study images and the final [...] above. Electronically Signed By: Joe Haynes MD [facility] [phone] 03/13/2025 9:39:11 AM CDT Iman Ortiz DO IMG US PROCEDURES Final Result * US Arterial Doppler Lower Extremity Bilateral (03/12/2025 11:50 AM CDT) Anatomical Region Laterality Modality Vascular Bilateral Ultrasound 03/12/2025 11:0 4 AM CDT Narrative 03/13/2025 10:30 AM CDT [facility] - Department of Vascular Surgery, Vascular Laboratory [address] [place] [address] Lower Extremity Arterial Doppler Report Patient Name: RICHELLE ESPINOZA : 1960 Study Date: 03/12/2025 11:04:00 AM Gender: F Tech: Uma Baron [facility] Location: [facility] Provider: IMAN ORTIZ Quality: Adequate Order Provider: IMAN ORTIZ PROCEDURES: Arterial Report: Bilateral lower extremity arterial Doppler exam at rest. INDICATIONS: Z48.812 Encounter for surgical aftercare following surgery on the circulatory system. MEASUREMENTS: Right Value Units Left Value Units Rt Brachial Pressure 238 mmHg Lt Brachial Pressure 239 mmHg Rt EDGE RUNNER Pressure 255 mmHg Lt EDGE RUNNER Pressure 255 mmHg Rt DPA Pressure 191 mmHg Lt DPA Pressure 208 mmHg Rt 1st Digit Pressure 168 mmHg Lt 1st Digit Pressure 136 mmHg Rt PT SUZANNE Resting NC Lt PT SUZANNE Resting NC Rt AT SUZANNE Resting 0.8 Lt AT SUZANNE Resting 0.87 Rt Digit/Arm Index 0.7 Lt Digit/Arm Index 0.57 Right Value Units Left Value Units FINDINGS: Performing Audio/Video Technician: Uma Baron RVT. Right Common Femoral Artery Analysis: The common femoral artery waveform is multiphasic. Right Popliteal Artery Analysis: The popliteal waveform is multiphasic. Right Posterior Tibial Artery Analysis: The posterior tibial waveform is multiphasic. Right Anterior Tibial Artery Analysis: The anterior tibial waveform is monophasic. Left Common Femoral Artery Analysis: The common femoral artery waveform is multiphasic. Left Popliteal Artery Analysis: The popliteal waveform is monophasic. Left Posterior Tibial Artery Analysis: The posterior tibial waveform is monophasic. Left Anterior Tibial Artery Analysis: The anterior tibial waveform is monophasic. CONCLUSIONS: 1. The ankle arteries are non-compressible bilaterally which is consistent with arterial calcification thus the Ankle/Brachial Indices are not obtainable. 2. Right Digit/Arm Index is within normal limits (for reference, normal ANDREI is >0.6). 3. Left Digit/Arm Index is abnormal (for reference, abnormal ANDREI is <0.6). 4. There is evidence of right leg arterial insufficiency at the level of infrapopliteal arteries. 5. There is evidence of left leg arterial insufficiency at the level of femoral-popliteal arteries and infrapopliteal arteries. HISTORY: 02/04/2025 Intravascular lithotripsy with stenting [...] leg - PREVIOUS STUDIES: Previous study on 01/15/25 Rt=NC, Lt=1.36 - DISCLAIMER: The study images and the final [...] above. Electronically Signed By: Joe Haynes MD [facility] [phone] 03/13/2025 9:38:45 AM CDT Procedure Note Joe Haynes MD - 03/13/2025 [facility] - Department of Vascular Surgery,Vascular Laboratory [address] [place] [address] Lower Extremity Arterial Doppler Report Patient Name: RICHELLE ESPINOZA : 1960 Study Date: 03/12/2025 11:04:00 AM Gender: F Tech: Uma Baron [facility] Location: [facility] Provider: IMAN ORTIZ Quality: Adequate Order Provider: IMAN ORTIZ PROCEDURES: Arterial Report: Bilateral lower extremity arterial Doppler exam at rest. INDICATIONS: Z48.812 Encounter for surgical aftercare following surgery on therculatory system. MEASUREMENTS: Right Value Units Left Value Units Rt Brachial Pressure 238 mmHg Lt Brachial Pressure 239 mmHg Rt EDGE RUNNER Pressure 255 mmHg Lt EDGE RUNNER Pressure 255 mmHg Rt DPA Pressure 191 mmHg Lt DPA Pressure 208 mmHg Rt 1st Digit Pressure 168 mmHg Lt 1st Digit Pressure 136 mmHg Rt PT SUZANNE Resting NC Lt PT SUZANNE Resting NC Rt AT SUZANNE Resting 0.8 Lt AT SUZANNE Resting 0.87 Rt Digit/Arm Index 0.7 Lt Digit/Arm Index 0.57 Right Value Units Left Value Units FINDINGS: Performing Audio/Video Technician: Uma Baron RVT. Right Common Femoral Artery Analysis: The common femoral artery waveform is multiphasic. Right Popliteal Artery Analysis: The popliteal waveform is multiphasic. Right Posterior Tibial Artery Analysis: The posterior tibial waveform is multiphasic. Right Anterior Tibial Artery Analysis: The anterior tibial waveform is monophasic. Left Common Femoral Artery Analysis: The common femoral artery waveform is multiphasic. Left Popliteal Artery Analysis: The popliteal waveform is monophasic. Left Posterior Tibial Artery Analysis: The posterior tibial waveform is monophasic. Left Anterior Tibial Artery Analysis: The anterior tibial waveform is monophasic. CONCLUSIONS: 1. The ankle arteries are non-compressible bilaterally which is consistentwith arterial calcification thus the Ankle/Brachial Indices are not obtainable. 2. Right Digit/Arm Index is within normal limits (for reference, normalDAI is >0.6). 3. Left Digit/Arm Index is abnormal (for reference, abnormal ANDREI is<0.6). 4. There is evidence of right leg arterial insufficiency at the level ofinfrapopliteal arteries. 5. There is evidence of left leg arterial insufficiency at the level offemoral-popliteal arteries and infrapopliteal arteries. HISTORY: 02/04/2025 Intravascular lithotripsy with stenting [...] leg - PREVIOUS STUDIES: Previous study on 01/15/25 Rt=NC, Lt=1.36 - DISCLAIMER: The study images and the final [...] above. Electronically Signed By: Joe Haynes MD [facility] [phone] 03/13/2025 9:38:45 AM CDT Iman Ortiz DO [facility] PROCEDURES Final Result * Colonoscopy (12/08/2024 8:00 AM CDT) Anatomical Region Laterality Modality Other Narrative Procedure Note Mallory Pablo MD - 12/08/2024 8:00 AM CDT - [facility] Endoscopy Lab Patient Name: Richelle Espinoza Procedure Date: 12/08/2024 8:00 AM Date of : 1960 Admit Type: Inpatient Age: 64 Gender: Female Note Status: Finalized Attending MD: Mallory Pablo M.D. Procedure Date: 12/08/2024 Procedure: Colonoscopy Indications: Gastrointestinal bleeding, Abnormal CT of the GItract Providers: Mallory Pablo M.D., DIA Clement (Anesthesia Staff), Jenn Black RN, Abbi Herrera, Culinary Instructor Referring MD: Aide Adair M.D. Medicines: Monitored Anesthesia Care Complications: No immediate complications. Estimated Blood Loss: Estimated blood loss: none. Procedure: Pre-Anesthesia Assessment: - Prior to the procedure, a History and Physicalwas performed, and patient medications, allergies and sensitivities were reviewed. The patient'stolerance of previous anesthesia was reviewed. - The risks and benefits of the procedure and the sedation options and risks were discussed with the patient. All questions were answered and informed consent was obtained. - ASA Grade Assessment: III - A patient with severe systemic disease. After I obtained informed consent, the scope was passed under direct vision. Throughout theprocedure, the patient's blood pressure, pulse, and oxygen saturations were monitored continuously. The scopewas passed under direct vision. The Colonoscope was introduced through the anus and advanced to the the terminal ileum. The colonoscopy was performed with ease. The patient tolerated the procedure well. The quality of the bowel preparation was good. Thequality of the bowel preparation was evaluated using theBBPS ([place] Bowel Preparation Scale) with scores of:Right Colon = 3, Transverse Colon = 3 and Left Colon = 3 (entire mucosa seen well with no residual staining, small fragments of stool or opaque liquid). Thetotal BBPS score equals 9. The bowel preparation used was GoLYTELY via split dose instruction. Bowel prep was administered using a split dose. Findings: The terminal ileum appeared normal. A 30 mm polyp was found in the descending colon. The polyp was pedunculated. The polyp was removed with a hot snare. Resection and retrieval were complete. A 10 mm polyp was found in the cecum. The polyp was flat.Preparations were made for mucosal resection. Eleview was injected to raise the lesion. Snare mucosal resection was performed. Resection andretrieval were complete. A 5 mm polyp was found in the descending colon. The polyp wassessile. The polyp was removed with a hot snare. Resection and retrieval were complete. A 4 mm polyp was found in the rectum. The polyp was sessile. Thepolyp was removed with a jumbo cold forceps. Resection and retrieval were complete. There was a polypoid looking flat mucosa in ascending colon. Biopsywas taken. Bleeding external and internal hemorrhoids were found. Thehemorrhoids were large. Possible source of bleed Scattered small-mouthed diverticula were found in the sigmoid colonand descending colon. Impression: - The examined portion of the ileum was normal. - One 30 mm polyp in the descending colon, removed with a hot snare. Resected and retrieved. - One 10 mm polyp in the cecum, removed withmucosal resection. Resected and retrieved. - One 5 mm polyp in the descending colon, removedwith a hot snare. Resected and retrieved. - One 4 mm polyp in the rectum, removed with ajumbo cold forceps. Resected and retrieved. - Bleeding external and internal hemorrhoids. - Mucosal resection was performed. Resection and retrieval were complete. - There was a polypoid looking flat mucosa in ascending colon. Biopsy was taken. - Scattered small-mouthed diverticula were found in the sigmoid colon and descending colon. Recommendation: - Repeat colonoscopy in 1 year for surveillance. - Await pathology results. - Surgery consultation for bleeding hemorrhoids Procedure Code(s): --- Professional --- 75389, Colonoscopy, flexible; with endoscopicmucosal resection 74041, 59, Colonoscopy, flexible; with removal of tumor(s), polyp(s), or other lesion(s) by snare technique 39832, 59, Colonoscopy, flexible; with biopsy,single or multiple Diagnosis Code(s): --- Professional --- K64.8, Other hemorrhoids D12.0, Benign neoplasm of cecum D12.4, Benign neoplasm of descending colon D12.8, Benign neoplasm of rectum K92.2, Gastrointestinal hemorrhage, unspecified R93.3, Abnormal findings on diagnostic imaging of other parts of digestive tract CPT copyright 2020 [employer]. All rights reserved. The codes documented in this report are preliminary and upon zigzag appliquer reviewmay be revised to meet current compliance requirements. This report is electronically signed by Dr Art Pablo Mallory Pablo M.D. 12/08/2024 10:12:01 AM This report has been electronically signed by the physician. Number of Addenda: 0 Note Initiated On: 12/08/2024 8:00 AM Mallory Pablo MD ENDOSCOPY PROCEDURES Edite d Result - Final * Hepatitis panel, acute (06/08/2017 8:08 PM ARCADE ATTENDANT) Hep A IgM Negative Negative [facility] Hep B core IgM Negative Negative [facility] Hep C Ab Negative Negative [facility] HepBsAg Negative Negative [facility] Blood specimen (specimen) 06/08/2017 8:08 PM ARCADE ATTENDANT 06/08/2017 8:23 PM ARCADE ATTENDANT Stacey Abrams MD LAB MICROBIOLOGY - GENERAL ORDERABLES Final Result [facility] [id number] [place] [address] from Last 3 Months or Most Recently Relevant to Health Maintenance
--- OUTSIDE RECORDS SUMMARY | 2025-06-12 12:08 | XMS_ITS | Encounter Summary ---
Author Organization [facility] Address [address] [place] [address] Phone Care Team Providers Care Inker And Opaquer Name Role Phone Aide Adair MD Primary Care Prov ider Stacey Abrams MD Unavailable [phone] Stacey Abrams MD Primary Care Provider [phone] Aide Adair MD Primary Care Prov ider Pilar Velasco RN Unavailable [phone] Jordy Avila MD Unavailable [phone] Encounter Details Date Type Department Care Team (Latest Contact Info) Description 11/28/2017 Orders Only [facility] Scanning, Provider Social History Tobacco Use Types Packs/Day Years Used Date Smoking Tobacco: Former Smokeless Tobacco: Never Alcohol Use Standard Drinks/Week Comments Defer 0 (1 standard drink = 0.6 oz pur e alcohol) occasionally Comments Unknown Sex and Gender Information Value Date Recorded Sex Assigned at Not on file Legal Sex Female 11:41 PM CONVERTIBLE SOFA BEDSPRING TESTER Gender Identity Not on file Sexual Orientation Not on file documented as of this encounter Plan of Treatment Not on file documented as of this encounter Procedures Procedure Name Priority Date/Time Associated Diagnosis Comments SCAN - RADIOLOGY/IMAGING 11/28/2017 documented in this encounter Results * SCAN - RADIOLOGY/IMAGING (11/28/2017) Anatomical Region Laterality Modality Other us Provider Scanning Final Result documented in this encounter Visit Diagnoses Not on filedocumented in this encounter Additional Health Concerns Infection Onset Date Last Indicated Resolved Time Exposure, COVID-19 Comment:Added automatically based on COVID19 lab answers indicating exposure risk 09/07/2020 09/07/2020 09/07/2020 6:[address] COVID: Suspected 09/07/2020 09/07/2020 09/07/2020 6:34 PM CONVERTIBLE SOFA BEDSPRING TESTER COVID19 09/07/2020 09/07/2020 09/21/2020 3:07 AM CONVERTIBLE SOFA BEDSPRING TESTER COVID: Recovered Comment:Added based on recent COVID infection. 09/21/2020 12/21/2020 01/19/2021 3:05 AM C DT documented as of this encounter Care Teams Inker And Opaquer Relationship Specialty Start Date End Date Aide Adair MD PCP - General 06/08/17 09/06/20 Stacey Abrams MD PCP - General 09/07/20 09/16/20 Aide Adair MD PCP - General 09/17/20 Stacey Abrams MD Referring Physician Nephrology 10/05/19 Pilar Velasco, RN [address] [facility] [address] [place] [address] Health Unit Supervisor 01/21/24 4 Jordy Avila MD [address] [place] [address] DR SARKAR [address] [place] [address] Consulting Physician Vascular & Interven Rad 10/10/24 documented as of this encounter
--- OUTSIDE RECORDS SUMMARY | 2025-06-12 12:08 | XMS_ITS | Patient Health Record ---
Author Organization [facility] Address [address] [place] [id number] Care Team Providers Care Lay Out Maker Name Role Phone Aide Adair Unavailable Unavailabl e KEISHA JOHNSON Unavailable [phone] Reason For Referral No Information Medications Medication SIG (Take, Route, Frequency, Duration) Notes Start Date End Date Status Triamcinolone Acetonide 0.1 % APPLY TOPICALLY TWICE DAILY TO RECTAL AREA External; Duration: 25 Days Active Gabapentin 100 MG 2 capsule at bedtime Oral; Duration: 30 days 1 capsule in the am and 2 capsules at bedtime 1 am and 2 capsules Active Pentoxifylline ER 400 MG TAKE 1 TABLET BY MOUTH DAILY FOR LEG OR CIRCULATION Oral; Duration: 30 Days Active Atorvastatin Calcium 20 MG TAKE [...] EVERY DAY Oral; Duration: 90 Days Active Losartan Potassium 100 MG TAKE 1 TABLET BY MOUTH DAILY Oral; Duration: 90 Days Active Spironolactone 25 MG Oral; Duration: 90 Days Active Sertraline HCl 25 MG Oral; Duration: 90 Days Active NIFEdipine ER 90 MG Oral; Duration: 30 Days Active Cefdinir 300 MG Oral; Duration: 3 Days Active NIFEdipine ER 90 MG TAKE 1 TABLET BY MOUTH DAILY EVERY MORNING Oral; Duration: 30 Days Active rOPINIRole HCl 0.5 MG TAKE 1 TABLET BY MOUTH TWICE DAILY Oral; Duration: 30 Days Active Problems Problem Type SNOMED Code ICD Code Onset Dates Problem Status W/U Status Risk Notes Problem Anemia in chronic kidney disease (021208523) Anemia in chronic kidney disease (D63.1) Active confirmed Problem Mixed hyperlipidemia (159450647) Mixed hyperlipidemia (E78.2) Active confirmed Problem Chronic kidney disease stage 5 (884901060) Chronic kidney disease, stage 5 (N18.5) Active confirmed Problem End stage renal disease (35556467) End stage renal disease (N18.6) Active confirmed Problem Dependence on renal dialysis (887171822) Dependence on renal dialysis (Z99.2) Active confirmed Problem Essential hypertension (44798691) Essential hypertension (I10) Active confirmed Problem Hyperparathyroidism due to renal insufficiency (55185571) Hyperparathyroid ism, 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) Active confirmed Problem Peripheral arterial occlusive disease (602463099) Peripheral arterial occlusive disease (I77.9) Active confirmed Problem Internal hemorrhoids (27310466) Grade I hemorrhoids (K64.0) Active confirmed Encounters Encounter Location Date Provider Diagnosis [facility] [address] [id number] 11/14/2024 KEISHA JOHNSON End stage renal disease N18.6 ; Dependence [...] hemorrhoids (ICD-10 - K64.0) Plan Of Treatment No Information Insurance Providers Payer Name Payer Address Payer Phone Subscriber Number Group Number Insured Name Patient Relationship to Insured Coverage Start Date Coverage End Date [employer] [address] [address] [place] [address] [id number] Roseanna Espinoza Self - patient is the insured
--- OUTSIDE RECORDS SUMMARY | 2025-06-12 12:08 | XMS_ITS | Encounter Summary ---
Author Organization [facility] Healthcare Address [address] [place] [address] Care Team Providers Care Recruiting Administrator Name Role Phone Aide Adair MD Primary Care Prov ider Stacey Abrams MD Unavailable [phone] Stacey Abrams MD Primary Care Provider [phone] Aide Adair MD Primary Care Prov ider Pilar Velasco RN Unavailable [phone] Jordy Avila MD Unavailable [phone] Encounter Details Date Type Department Care Team (Late st Contact Info) Description 06/28/2017 Orders Only [facility] [address] [place], [place] [id number] Stacey Abrams MD [address] [place] [address] Social History Tobacco Use Types Packs/Day Years Used Date Smoking Tobacco: Never Assessed Comments Unknown Sex and Gender Information Value Date Recorded Sex Assigned at Not on file Legal Sex Female 11:41 PM CENTRIFUGAL SUPERVISOR Gender Identity Not on file Sexual Orientation Not on file documented as of this encounter Plan of Treatment Not on file documented as of this encounter Visit Diagnoses Not on filedocumented in this encounter Additional Health Concerns Infection Onset Date Last Indicated Resolved Time Exposure, COVID-19 Comment:Added automatically based on COVID19 lab answers indicating exposure risk 09/07/2020 09/07/2020 09/07/2020 6:[address] COVID: Suspected 09/07/2020 09/07/2020 09/07/2020 6:34 PM CENTRIFUGAL SUPERVISOR COVID19 09/07/2020 09/07/2020 09/21/2020 3:07 AM CENTRIFUGAL SUPERVISOR COVID: Recovered Comment:Added based on recent COVID infection. 09/21/2020 12/21/2020 01/19/2021 3:05 AM C DT documented as of this encounter Care Teams Recruiting Administrator Relationship Specialty Start Date End Date Aide Adair MD PCP - General 06/08/17 09/06/20 Stacey Abrams MD PCP - General 09/07/20 09/16/20 Aide Adair MD PCP - General 09/17/20 Stacey Abrams MD Referring Physician Nephrology 10/05/19 Pilar Velasco, RN [address] [facility] [address] [place] [address] Special Shopper 01/21/24 4 Jordy Avila MD [address] [facility] [address] S[address] [place] [address] Consulting Physician Vascular & Interven Rad 10/10/24 documented as of this encounter
--- OUTSIDE RECORDS SUMMARY | 2025-06-12 12:08 | XMS_ITS | Encounter Summary ---
Author Organization [facility] Address [address] [place] [address] Phone Care Team Providers Care High Raw Sugar Boiler Name Role Phone Aide Adair MD Primary Care Prov ider Stacey Abrams MD Unavailable [phone] Stacey Abrams MD Primary Care Provider [phone] Aide Adair MD Primary Care Prov ider Pilar Velasco RN Unavailable [phone] Jordy Avila MD Unavailable [phone] Encounter Details Date Type Department Care Team (Late st Contact Info) Description 07/17/2019 Telephone [facility] Medicine Scheduling [address] [place] [address] Aliya Juan Social History Tobacco Use Types Packs/Day Years Used Date Smoking Tobacco: Former Cigarettes Q uit: 2008 Smokeless Tobacco: Never Alcohol Use Standard Drinks/Week Comments Yes 0 (1 standard drink = 0.6 oz pur e alcohol) occasionally Comments Unknown Sex and Gender Information Value Date Recorded Sex Assigned at Not on file Legal Sex Female 11:41 PM CONTINUOUS IMPROVEMENT SPECIALIST Gender Identity Not on file Sexual Orientation [...] COVID: Suspected 09/07/2020 09/07/2020 09/07/2020 6:34 PM CONTINUOUS IMPROVEMENT SPECIALIST COVID19 09/07/2020 09/07/2020 09/21/2020 3:07 AM CONTINUOUS IMPROVEMENT SPECIALIST COVID: Recovered Comment:Added based on recent COVID infection. 09/21/2020 12/21/2020 01/19/2021 3:05 AM C DT documented as of this encounter Care Teams High Raw Sugar Boiler Relationship Specialty Start Date End Date Aide Adair MD PCP - General 06/08/17 09/06/20 Stacey Abrams MD PCP - General 09/07/20 09/16/20 Aide Adair MD PCP - General 09/17/20 Stacey Abrams MD Referring Physician Nephrology 10/05/19 Pilar Velasco, RN [address] [facility] [address] [place] [address] Side Door Man 01/21/24 4 Jordy Avila MD [address] [place] [address] DR SARK[address] [place] [address] Consulting Physician Vascular & Interven Rad 10/10/24 documented as of this encounter
--- OUTSIDE RECORDS SUMMARY | 2025-06-12 12:09 | XMS_ITS | Encounter Summary ---
Author Organization [facility] Address [address] [place] [address] Phone Care Team Providers Care Hydraulic Rock Drill Operator Name Role Phone Aide Adair MD Primary Care Prov ider Stacey Abrams MD Unavailable [phone] Stacey Abrams MD Primary Care Provider [phone] Aide Adair MD Primary Care Prov ider Pilar Velasco RN Unavailable [phone] Jordy Avila MD Unavailable [phone] Encounter Details Date Type Department Care Team (Latest Contact Info) Description 11/25/2019 Orders Only [facility] Scanning, Provider Social History Tobacco Use Types Packs/Day Years Used Date Smoking Tobacco: Former Cigarettes 0.5 31 1 976 - 2007 Smokeless Tobacco: Never Alcohol Use Standard Drinks/Week Comments Yes 0 (1 standard drink = 0.6 oz pur e alcohol) 2 drinks per month Comments No Sex and Gender Information Value Date Recorded Sex Assigned at Not on file Legal Sex Female 11:41 PM FILTER CHANGING TECHNICIAN Gender Identity Not on file Sexual Orientation Not on file documented as of this encounter Plan of Treatment Not on file documented as of this encounter Procedures Procedure Name Priority Date/Time Associated Diagnosis Comments SCAN - LABS 11/25/2019 documented in this encounter Results * SCAN - LABS (11/25/2019) us Provider Scanning Final Result documented in this encounter Visit Diagnoses Not on filedocumented in this encounter Additional Health Concerns Infection Onset Date Last Indicated Resolved Time Exposure, COVID-19 Comment:Added automatically based on COVID19 lab answers indicating exposure risk 09/07/2020 09/07/2020 09/07/2020 6:[address] COVID: Suspected 09/07/2020 09/07/2020 09/07/2020 6:34 PM FILTER CHANGING TECHNICIAN COVID19 09/07/2020 09/07/2020 09/21/2020 3:07 AM FILTER CHANGING TECHNICIAN COVID: Recovered Comment:Added based on recent COVID infection. 09/21/2020 12/21/2020 01/19/2021 3:05 AM C DT documented as of this encounter Care Teams Hydraulic Rock Drill Operator Relationship Specialty Start Date End Date Aide Adair MD PCP - General 06/08/17 09/06/20 Stacey Abrams MD PCP - General 09/07/20 09/16/20 Aide Adair MD PCP - General 09/17/20 Stacey Abrams MD Referring Physician Nephrology 10/05/19 Pilar Velasco, RN [address] [facility] [address] [place] [id number] [employer] Professor 01/21/24 4 Jordy Avila MD [address] [place] [address] [address] [place] [address] Consulting Physician Vascular & Interven Rad 10/10/24 documented as of this encounter
--- OUTSIDE RECORDS SUMMARY | 2025-06-12 12:09 | XMS_ITS | Encounter Summary ---
Author Organization [facility] [employer] [facility] Address [address] [place] [phone] Phone Care Team Providers Care Housetrailer Servicer Name Role Phone Aide Adair MD Primary Care Provider Reason for Referral * Consultation (Routine) - Closed Specialty Diagnoses / Procedures Referred By Contac t Referred To Contact Cardiology Diagnoses Peripheral pulmonary artery disease (HCC) Stacey Abrams MD Bitar, Saad, MD [address] [place] [id number] Referral ID Status Reason Start Date Expiration Date V isits Requested Visits Authorized [id number] Closed Specialty Services Required 12/29/2021 12/29/2022 1 1 Encounter Details Date Type Department Care Team (Late st Contact Info) Description 12/29/2021 Ancillary Orders [place] As Seen on TV [address] [address] Stacey Abrams MD [address] [place] [phone] Peripheral pulmonary artery disease (HCC) (Primary Dx) Social History Tobacco Use Types Packs/Day Years Used Date Smoking Tobacco: Never Assessed Sex and Gender Information Value Date Recorded Sex Assigned at Not on file Legal Sex Male 2:49 PM EDT Gender Identity Not on file Sexual Orientation Not on file documented as of this encounter Plan of Treatment Scheduled Referrals Name Type Priority Associated Diagnoses Order Schedule Ambulatory referral to Cardiology Outpatient Referral Routine Peripheral pulmonary artery disease (HCC) Expected: 12/29/2021, Expires: 01/28/2023 documented as of this encounter Visit Diagnoses Diagnosis Peripheral pulmonary artery disease (HCC)- Primary documented in this encounter Care Teams Housetrailer Servicer Relationship Specialty Start Date End Date Aide Adair MD [address] [place] [address] PCP - General Family Medicine 12/08/24 documented as of this encounter
--- OUTSIDE RECORDS SUMMARY | 2025-06-12 12:09 | XMS_ITS | Clinical Summary ---
Author Organization [facility] Physician Office Building [address] [place] [id number] Care Team Providers Care Supervisor Home Energy Consultant Name Role Phone Stacey Abrams MD Unavailable [phone] Aide Adair MD Primary Care Prov ider Jordy Avila MD Unavailable [phone] Allergies No known active allergies Medications atenolol [...] tablet (20 mg total) by mouth nightly Active triamcinolone (KENALOG) 0.1 % cream Apply topically 2 (two) times a day To rectal area 80 g 2 Active Additional Information Patient taking differently: 1 Applicationtopical2 times daily PRN, irritation, rash, To rectal area,Indications: Skin Inflammation, skin rash, Informant: Self, Reported on 02/04/2025 NIFEdipine CC 90 mg 24 hr tabletIndications:ht n Take 1 tablet (90 mg total) by mouth every morning Active calcium carbonate (TUMS) 500 mg (200 mg elemental calcium) chewable tabletIndications:hy pocalcemia Take 1 tablet/chew tab (500 mg total) by mouth every morning Active acetaminophen 500 mg capsule Take 2 capsules (1,000 mg total) by mouth every 6 (six) hours as needed for pain 30 tablet Active Additional Information Patient taking differently:1,000 mg [...] 12/03 OR: Elective BLE angiogram, L EIA CARBON CAPTURE POWER PLANT OPERATOR+stent, R JHONY CARBON CAPTURE POWER PLANT OPERATOR+stent, unsuccessful recan of L SFA (Dr. Avila at [facility]) - 12/09 OR: R SFA cutdown and repair of PSA, R SFA to PT CARBON CAPTURE POWER PLANT OPERATOR/DCB. R BRACELET MAKER NOVELTY and SFA endarterectomy. Right calf fasciotomies. - Plavix 300mg loading dose per tube now and 75mg daily starting tomorrow. - determine when to restart ASA - Q4hr NV checks BLE - Long-term, will be on DAPT - Right groin Provera wound vac in place - 12/12 OR ([facility]) - fasciotomy closure - 12/13: R groin [...] on 12/10 (cancelled given her transfer to [facility]) - CTM for bleeding, trend H/H Hemorrhoids- [...] AM CDT): s/p BLE angio via R BRACELET MAKER NOVELTY access, w/ left EIA stent angioplasty, right JHONY stent angioplasty and unsuccessful recanalization of left SFA on 12/03 at [facility] c/b R BRACELET MAKER NOVELTY pseudoaneurysm with failed thrombin injection and subsequent RLE ALI s/p R SFA cutdown and repair of PSA, R SFA to PT CARBON CAPTURE POWER PLANT OPERATOR/DCB. R BRACELET MAKER NOVELTY and SFA endarterectomy, 4 compartment fasciotomies (12/09) [...] gtt currently. Other idiopathic peripheral autonomic neuropathy Resolved Problems Problem Noted Date Diagnosed Date Resolved Date PVD (peripheral vascular disease) 12/09/2024 12/12/2024 Femoral artery pseudo-aneurysm, right 12/08/2024 12/12/2024 Thyrotoxicosis without thyroid storm 04/21/2019 12/09/2019 Subclinical hyperthyroidism 04/21/2019 12/09/2019 Encounters Date Type Department Care Team Description 06/11/2025 10:00 AM CAR BODY DESIGNER Office Visit [facility] Medicine Vascular Surgery [address] [place] [address] Medical Office Building [address] [place] [address] Iman Koroma, PAD (peripheral artery disease) (Primary Dx); BRBPR (bright red blood per rectum) 06/11/2025 9:30 AM CAR BODY DESIGNER Ancillary Procedure [facility] Vascular Lab Vascular Surgery [address] [place] [address] [address] [place], [place] [address] Encounter for surgical aftercare following surgery on the circulatory system 06/10/2025 Telephone [facility] Vascular Surgery [address] [facility] Office Building [address] [place] [address] Iman Koroma, Scheduling Appointments 03/13/2025 11:00 AM CDT Home Care Visit [address] [place] [address] [address] [place] [address] Jacey Cowart, PT PT OASIS DISCHARGE 03/12/2025 11:45 AM CDT Office Visit [facility] Vascular Surgery [facility] Office Building [address] [place], [place] [address] Iman Koroma, Encounter for surgical aftercare following surgery on the circulatory system (Primary Dx); PAD (peripheral artery disease) 03/12/2025 11:00 AM CDT Ancillary Procedure [facility] Vascular Lab Vascular Surgery [address] [place] [address] [address] [place], [place] [address] Encounter for surgical aftercare following surgery on the circulatory system from Last 3 Months Surgical History Surgery Date Site/Laterality Comments REMOVE TUNNELED LINE 06/29/2017 Left PERITONEAL CATHETER INSERTION 07/23/2016 - 07/22/2017 HYSTERECTOMY 07/23/2002 - 07/22/2003 SECTION 07/23/1989 - 07/22/19901988, 1987 COLON SURGERY 12/08/2024 CARDIAC CATHETERIZATION 12/03/2024 N/A Procedure: PERIPHERAL ANGIOGRAPHY; Surgeon: Jordy Avila MD; Location: [facility]ORD[facility]; Service: Cardiovascular; Laterality: N/A; Hydration orders added. Unsure if they will be needed. superficial femoral artery and femoral popliteal vessels in both sides Medical devices from this surgery are in the Medical Devices section. FEMORAL EMBOLECTOMY/THROMBECTOMY 12/09/2024 Pelvis/Right Procedure: Open Thrombectomy Superficial and Deep Femoral Artery; Surgeon: Iman Koroma DO; Location: [facility] OR POD 3; Service: Vascular; Laterality: Right; Medical devices from this surgery are in the Medical Devices section. WOUND DEBRIDEMENT 01/02/2025 Left LLE groin wound debridement LEG SURGERY 12/12/2024 Left LLE wound closure THROMBECTOMY 12/09/2024 Left LLE/femoral ANGIOPLASTY 12/03/2024 THYROIDECTOMY 10/03/2019 total CARDIAC CATHETERIZATION 02/04/2025 Left Procedure: CARBON CAPTURE POWER PLANT OPERATOR LITHOTRIPSY FEM/POP ARTERY [id number]; Surgeon: Iman Koroma DO; Location: [facility] OR POD 3; Service: Vascular; Laterality: Left; Medical devices from this surgery are in the Medical Devices section. Medical History Medical History Date Comments Hypertension Steatosis of liver Thyroid disease PAOD (peripheral arterial occlusive disease) Hypertension Goiter with tracheal co mpression ESRD (end stage renal disease) Subclinical hyperthyroidism History of peritoneal dialysis 2016 Thyroid nodule Tracheal deviation Pulmonary nodule Sleep apnea Hemorrhoids- RECTAL, chronic bleeding 12/07/2024 Anemia- CKD, plus Rectal bleeding 12/07/2024 Family History Medical History Relation Name Comments No Known Problems Brother 1 No Known Problems Brother 2 Stroke Mother Family history of cerebrovascular accident (CVA) - (Added by TW Conv) No Known Problems Sister 1 No Known Problems Sister 2 No Known Problems Sister 3 Anesthesia problems Neg Hx Relation Name Status Comments Brother 1 Alive 2 brothers Brother 2 Alive Father Mother Sister 1 Alive 3 sisters Sister 2 Alive Sister 3 Alive Social History Tobacco Use Types Packs/Day Years [...] materials from doctor or pharmacy Sometimes 03/13/2025 [facility] Util[facility] Answer Date Recorded In [...] often do you attend chur ch or jain services? More than 4 times per year 01/03/2025 Do you belong to any clubs o r organizations such as rastafarian groups, unions, fraternal or athletic groups, or [...] any time in the past 12 m [facility], were you homeless or living in a jail (including now)? No 01/03/2025 AUDIT-C Answer Date [...] on file Legal Sex Female 11:41 PM CAR BODY DESIGNER Gender Identity Not on file Sexual Orientation Not on file Last Filed Vital Signs Vital Sign Reading Time Taken Comments Blood Pressure 129/76 06/11/2025 10:47 AM CAR BODY DESIGNER Pulse 60 06/11/2025 10:47 AM CAR BODY DESIGNER Temperature 36.6 C (97.9 F) 03/12/2025 11:39 AM CDT Respiratory Rate 18 03/13/2025 11:30 AM CDT Oxygen Saturation 96% 03/05/2025 11:49 AM CDT Inhaled Oxygen Concentration - - Weight 61.2 kg (135 lb) 06/11/2025 10:47 AM CAR BODY DESIGNER Height 157.5 cm (5' 2) 06/11/2025 10:47 AM CAR BODY DESIGNER Body Mass Index 24.69 06/11/2025 10:47 AM CAR BODY DESIGNER Plan of Treatment Health Maintenance Due Date Last Done Comments DTaP/Tdap/Td Vaccine (1 - Tdap) 1972 Regular Well Visit/Exam 18-64 1979 Pneumococcal vaccine <65 (1 of 2 - PCV) 1980 Zoster Vaccine (1 of 2) 1980 Covid-19 Vaccine (3 - season) 2025, 11/01/2020 Influenza Vaccine (#1) 2025 Breast Cancer Screening-Mammogram 04/08/2025 024, 05/20/2020 Depression Screening 01/01/2026 01/01/2025, 12/10/19 Colon Cancer Screening-Colonoscopy 12/08/20342024 Hepatitis B Screening Completed 06/08/2017 Hepatitis C Screening Completed 06/08/2017 Colon Cancer Screening-CT Colonography Discontinued Colon Cancer Screening-DNA Stool Discontinued 12/09/19 Colon Cancer Screening-FIT Discontinued 12/08/2024 Colon Cancer Screening-Sigmoidoscopy Discontinued 11/20 Medical Devices Implanted Type Area Clinical Informaticist Device Identifier Shelf Expiration Date Model / Serial / Lot [employer] Randy Stent Drug Eluting S Travador Mr 4.71b38co [id number] - Aixa - [id number] Implanted:Qty : 1 on 12/09/2024 by Iman Koroma DO at [facility] Stent Right: Superficial Femoral Artery [employer] Randy [id number] 03/26/2025 [id number] / EO / [id number] [employer] Zilver Ptx 6mm 120mm 125cm Drug Elute Otw Delivery System [id number] - [employer] - [id number] Implanted:Qty : 1 on 12/09/2024 by Iman Koroma DO at [facility] Stent Right: Superficial Femoral Artery [employer] [id number] 09/26/2026 [id number] / EO / [id number] [employer] Zilver Ptx 6mm 140mm 125cm Otw Drug Elute Delivery System [id number] - [employer]ixa - [id number] Implanted:Qty : 1 on 12/09/2024 by Iman Koroma DO at [facility] Stent Right: Superficial Femoral Artery [employer] [id number] 09/29/2026 [id number] / EO / [id number] [employer] Randy Stent Peripheral Vascular Over The Wire Dayana [id number] Stainless Steel [id number] - [employer] - [id number] Implanted:Qty : 1 on 12/09/2024 by Iman Koorma DO at [facility] Stent Right: Superficial Femoral Artery [employer] Randy [id number] 06/04/2026 [id number] / EO / [id number] [employer] Randy Stent Drug Eluting S Megatron Us Mr [id number] - Aixa - [id number] Implanted:Qty : 1 on 12/09/2024 by Iman Koroma DO at [facility] Stent Right: Superficial Femoral Artery [employer] Randy [id number] 12/16/2025 [id number] / EO / [id number] [employer] Stent Peripheral Over The Wire Zilver Ptx [id number] 25cm Nitinol [id number] - [id number] Implanted:Qty : 1 on 02/04/2025 by Iman Koroma DO at [facility] Stent Left: Superficial Femoral Artery [employer] [id number] 10/13/2026 [id number] / / [id number] [employer] Zilver Ptx 7mm 120mm 125cm Drug Elute Otw Delivery System [id number] - [id number] Implanted:Qty : 1 on 02/04/2025 by Iman Koroma DO at [facility] Stent Left: Superficial Femoral Artery [employer] [id number] 11/27/2025 [id number] / / [id number] [employer] Stent Peripheral Over The Wire Zilver Ptx [id number] 5cm Nitinol [id number] - [id number] Implanted:Qty : 1 on 02/04/2025 by Iman Koroma DO at [facility] Stent Left: Superficial Femoral Artery [employer] [id number] 05/27/2026 [id number] / / [id number] [employer] Randy Stent Peripheral [id number] m 6fr Self-Expandin g Blue Strl [id number] - [id number] Implanted:Qty : 1 on 12/03/2024 by Jordy Avila MD at [facility] [employer] Randy 05/13/2029 [id number] / / [id number] [employer] Randy Epic Od10 Mm L40 Mm L155 Cm Self Expand Iliac Artery L120 Cm Stent Vascular Nitinol Accepts 6 Fr Sheath [id number] - [id number] Implanted:Qty : 1 on 12/03/2024 by Jordy Avila MD at [facility] [employer] [facility] 12/30/2028 [id number] / / [id number] Sellaround Angio-Seal Vip 6fr Closere Device [id number] - [id number] Implanted:Qty : 1 on 12/03/2024 by Jordy Avila MD at [facility] [employer] [id number] / / Pate Vascular Stent Scaffold [id number] Resorbble Drug-Eluting Everolimus [id number] - [id number] Implanted:Qty : 1 on 12/09/2024 by Iman Koroma DO at [facility] Pate Vascular [id number] 03/16/2026 21655 50- 38 / / [id number] DSTLD Patch Vascuguard 0.88cm [id number] - [id number] - [id number] Implanted:Qty : 1 on 12/09/2024 by Iman Koroma DO at [facility] Right: Common Femoral Artery DSTLD [id number] 07/25/2026 [id number] / [id number] / [id number] Procedures Procedure Name Priority Date/Time Associated Diagnosis Comments US ARTERIAL DOPPLER LOWER EXTREMITY BILATERAL Routine 06/11/2025 11:15 AM CAR BODY DESIGNER Encounter for surgical aftercare following surgery on the circulatory system VL US ARTERIAL DUPLEX LOWER EXTREMITY BILATERAL Routine 06/11/2025 11:15 AM CAR BODY DESIGNER Encounter for surgical aftercare following surgery on [...] HEPATITIS PANEL, ACUTE Routine 06/08/2017 8:08 PM CAR BODY DESIGNER from Last 3 Months or Most Recently Relevant to Health Maintenance Results * US Arterial Duplex Lower Extremity Bilateral (06/11/2025 11:15 AM CAR BODY DESIGNER) Anatomical Region Laterality Modality Vascular Bilateral Ultrasound 06/11/2025 10:0 3 AM CAR BODY DESIGNER Narrative 06/11/2025 12:40 PM CAR BODY DESIGNER [facility] - Department of Vascular Surgery, Vascular Laboratory [address] [place] [address] [place] Lower Extremity Arterial Duplex Report Patient Name: RICHLELE ESPINOZA : 1960 Study Date: 06/11/2025 10:03:25 AM Sex: F Tech: Annie SHANKSEdwin Location: [facility] Provider: IMAN KOROMA Quality: Adequate Order Provider: IMAN KOROMA PROCEDURES: Arterial Report: Bilateral Lower Extremity Arterial Duplex Exam. INDICATIONS: Z48.812 Encounter for surgical aftercare following surgery on the circulatory system. MEASUREMENTS: Right Value Units Left Value Units Rt BRACELET MAKER NOVELTY Dst PSV 117 cm/s Lt BRACELET MAKER NOVELTY Dst PSV 154 cm/s Rt Profunda Prx [...] Value Units Left Value Units FINDINGS: Performing Back Roller: Harleen Drake RVT. Right Common Femoral: The right common [...] above. Electronically Signed By: Joe Haynes MD [facility] [phone] 06/11/2025 11:47:14 AM CAR BODY DESIGNER Procedure Note Joe Haynes MD - 06/11/2025 [facility] - Department of Vascular Surgery,Vascular Laboratory [address] [place] [address] [place] Lower Extremity Arterial Duplex Report Patient Name: RICHELLE ESPINOZA : 1960 Study Date: 06/11/2025 10:03:25 AM Sex: F Tech: Annie DRAKE Location: [facility] Ref Provider: IMAN KOROMA Quality: Adequate Order Provider: IMAN KOROMA PROCEDURES: Arterial Report: Bilateral Lower Extremity Arterial Duplex Exam. INDICATIONS: Z48.812 Encounter for surgical aftercare following surgery on therculatory system. MEASUREMENTS: Right Value Units Left Value Units Rt BRACELET MAKER NOVELTY Dst PSV 117 cm/s Lt BRACELET MAKER NOVELTY Dst PSV 154 cm/s Rt Profunda Prx [...] Value Units Left Value Units FINDINGS: Performing Back Roller: Harleen Drake RVT. Right Common Femoral: The right common [...] above. Electronically Signed By: Joe Haynes MD [facility] [phone] 06/11/2025 11:47:14 AM CAR BODY DESIGNER Iman Koroma DO IMG US PROCEDURES Final Result * US Arterial Doppler Lower Extremity Bilateral (06/11/2025 11:15 AM CAR BODY DESIGNER) Anatomical Region Laterality Modality Vascular Bilateral Ultrasound 06/11/2025 10:2 5 AM CAR BODY DESIGNER Narrative 06/11/2025 12:40 PM CAR BODY DESIGNER [facility] - Department of Vascular Surgery, Vascular Laboratory [address] [place] [address] Lower Extremity Arterial Doppler Report Patient Name: RICHELLE ESPINOZA : 1960 Study Date: 06/11/2025 10:25:00 AM Sex: F Tech: Kristen Drake [facility] Location: [facility] Provider: IMAN KOROMA Quality: Adequate Order Provider: IMAN KOROMA PROCEDURES: Arterial Report: Bilateral lower extremity arterial Doppler exam at rest. INDICATIONS: Z48.812 Encounter for surgical aftercare following surgery on the circulatory system. MEASUREMENTS: Right Value Units Left Value Units Rt Brachial Pressure 169 mmHg Lt Brachial Pressure 159 mmHg Rt CARBON CAPTURE POWER PLANT OPERATOR Pressure >254 mmHg Lt CARBON CAPTURE POWER PLANT OPERATOR Pressure >254 mmHg Rt DPA Pressure 113 mmHg Lt DPA Pressure >254 mmHg Rt 1st Digit Pressure 84 mmHg Lt 1st Digit Pressure 71 mmHg Rt PT SUZANNE Resting N/C Lt PT SUZANNE Resting N/C Rt AT SUZANNE Resting 0.67 Lt AT SUZANNE Resting N/C Rt Digit/Arm Index 0.5 Lt Digit/Arm Index 0.42 Right Value Units Left Value Units FINDINGS: Performing Back Roller: Harleen Drake RVT. Right All Levels: The right common [...] above. Electronically Signed By: Joe Haynes MD [facility] [phone] 06/11/2025 11:46:55 AM CAR BODY DESIGNER Procedure Note Joe Haynes MD - 06/11/2025 [facility] - Department of Vascular Surgery,Vascular Laboratory [address] [place] [address] Lower Extremity Arterial Doppler Report Patient Name: RICHELLE ESPINOZA : 1960 Study Date: 06/11/2025 10:25:00 AM Sex: F Tech: Kristen Drake [facility] Location: [facility] Provider: IMAN KOROMA Quality: Adequate Order Provider: IMAN KOROMA PROCEDURES: Arterial Report: Bilateral lower extremity arterial Doppler exam at rest. INDICATIONS: Z48.812 Encounter for surgical aftercare following surgery on thecirculatory system. MEASUREMENTS: Right Value Units Left Value Units Rt Brachial Pressure 169 mmHg Lt Brachial Pressure 159 mmHg Rt CARBON CAPTURE POWER PLANT OPERATOR Pressure >254 mmHg Lt CARBON CAPTURE POWER PLANT OPERATOR Pressure >254 mmHg Rt DPA Pressure 113 mmHg Lt DPA Pressure >254 mmHg Rt 1st Digit Pressure 84 mmHg Lt 1st Digit Pressure 71 mmHg Rt PT SUZANNE Resting N/C Lt PT SUZANNE Resting N/C Rt AT SUZANNE Resting 0.67 Lt AT SUZANNE Resting N/C Rt Digit/Arm Index 0.5 Lt Digit/Arm Index 0.42 Right Value Units Left Value Units FINDINGS: Performing Back Roller: Harleen Drake RVT. Right All Levels: The right common [...] above. Electronically Signed By: Joe Haynes MD [facility] [phone] 06/11/2025 11:46:55 AM CAR BODY DESIGNER us Iman Koroma DO IMG US PROCEDURES Final Result * US Arterial Duplex Lower Extremity Left Limited (03/12/2025 11:50 AM CDT) Anatomical Region Laterality Modality Vascular Left Ultrasound 03/12/2025 10:5 3 AM CDT Narrative 03/13/2025 10:30 AM CDT [facility] - Department of Vascular Surgery, Vascular Laboratory [address] [place] [address] [place] Lower Extremity Arterial Duplex Report Patient Name: RICHELLE ESPINOZA : 1960 Study Date: 03/12/2025 10:53:19 AM Gender: F Tech: BAD Location: [facility] Ref Provider: IMAN KOROMA Quality: Adequate Order Provider: IMAN KOROMA PROCEDURES: Arterial Report: Left Lower Extremity Arterial Duplex Exam. INDICATIONS: Z48.812 Encounter for surgical aftercare following surgery on the circulatory system. MEASUREMENTS: Left Value Units Lt BRACELET MAKER NOVELTY Dst PSV 131 cm/s Lt Profunda Dst PSV 399 cm/s Lt Superficial Femoral Prx PSV 171 cm/s Lt Superficial Femoral Mid PSV 48 cm/s Lt Superficial Femoral Dst PSV 36 cm/s Lt Pop Prx PSV 58 cm/s Lt Post Tibial Mid PSV 105 cm/s Lt Ant Tibial Mid PSV 18 cm/s Lt Peroneal Mid PSV 124 cm/s Left Value Units FINDINGS: Performing Back Roller: Uma Baron RVT. Left Common Femoral: The [...] Duplex imaging of the left lower extremity [place] arteries reveals patent vessels with no flow [...] above. Electronically Signed By: Joe Haynes MD [facility] [phone] 03/13/2025 9:39:11 AM CDT Procedure Note Joe Haynes MD - 03/13/2025 [facility] - Department of Vascular Surgery,Vascular Laboratory [address] [place] [address] [place] Lower Extremity Arterial Duplex Report Patient Name: RICHELLE ESPINOZA : 1960 Study Date: 03/12/2025 10:53:19 AM Gender: F Tech: BAD Location: [facility] Provider: IMAN KOROMA Quality: Adequate Order Provider: IMAN KOROMA PROCEDURES: Arterial Report: Left Lower Extremity Arterial Duplex Exam. INDICATIONS: Z48.812 Encounter for surgical aftercare following surgery on thecirculatory system. MEASUREMENTS: Left Value Units Lt BRACELET MAKER NOVELTY Dst PSV 131 cm/s Lt Profunda Dst PSV 399 cm/s Lt Superficial Femoral Prx PSV 171 cm/s Lt Superficial Femoral Mid PSV 48 cm/s Lt Superficial Femoral Dst PSV 36 cm/s Lt Pop Prx PSV 58 cm/s Lt Post Tibial Mid PSV 105 cm/s Lt Ant Tibial Mid PSV 18 cm/s Lt Peroneal Mid PSV 124 cm/s Left Value Units FINDINGS: Performing Back Roller: Uma Baron RVT. Left Common Femoral: The [...] Duplex imaging of the left lower extremity [place] arteries revealspatent vessels with no flow limiting [...] above. Electronically Signed By: Joe Haynes MD [facility] [phone] 03/13/2025 9:39:11 AM CDT Iman Koroma DO [facility] US PROCEDURES Final Result * US Arterial Doppler Lower Extremity Bilateral (03/12/2025 11:50 AM CDT) Anatomical Region Laterality Modality Vascular Bilateral Ultrasound 03/12/2025 11:0 4 AM CDT Narrative 03/13/2025 10:30 AM CDT [facility] - Department of Vascular Surgery, Vascular Laboratory [address] [place] [address] Lower Extremity Arterial Doppler Report Patient Name: RICHELLE ESPINOZA : 1960 Study Date: 03/12/2025 11:04:00 AM Gender: F Tech: Uma Baron Uli [facility] Provider: IMAN KOROMA Quality: Adequate Order Provider: IMAN KOROMA PROCEDURES: Arterial Report: Bilateral lower extremity arterial Doppler exam at rest. INDICATIONS: Z48.812 Encounter for surgical aftercare following surgery on the circulatory system. MEASUREMENTS: Right Value Units Left Value Units Rt Brachial Pressure 238 mmHg Lt Brachial Pressure 239 mmHg Rt CARBON CAPTURE POWER PLANT OPERATOR Pressure 255 mmHg Lt CARBON CAPTURE POWER PLANT OPERATOR Pressure 255 mmHg Rt DPA Pressure 191 mmHg Lt DPA Pressure 208 mmHg Rt 1st Digit Pressure 168 mmHg Lt 1st Digit Pressure 136 mmHg Rt PT SUZANNE Resting NC Lt PT SUZANNE Resting NC Rt AT SUZANNE Resting 0.8 Lt AT SUZANNE Resting 0.87 Rt Digit/Arm Index 0.7 Lt Digit/Arm Index 0.57 Right Value Units Left Value Units FINDINGS: Performing Back Roller: Uma Baron RVT. Right Common Femoral Artery [...] above. Electronically Signed By: Joe Haynes MD [facility] [phone] 03/13/2025 9:38:45 AM CDT Procedure Note Joe Haynes MD - 03/13/2025 [facility] - Department of Vascular Surgery,Vascular Laboratory [address] [place] [address] Lower Extremity Arterial Doppler Report Patient Name: RICHELLE ESPINOZA : 1960 Study Date: 03/12/2025 11:04:00 AM Gender: F Tech: mUa Baron [facility] Location: [facility] Provider: IMAN KOROMA Quality: Adequate Order Provider: IMAN KOROMA PROCEDURES: Arterial Report: Bilateral lower extremity arterial Doppler exam at rest. INDICATIONS: Z48.812 Encounter for surgical aftercare following surgery on thecirculatory system. MEASUREMENTS: Right Value Units Left Value Units Rt Brachial Pressure 238 mmHg Lt Brachial Pressure 239 mmHg Rt CARBON CAPTURE POWER PLANT OPERATOR Pressure 255 mmHg Lt CARBON CAPTURE POWER PLANT OPERATOR Pressure 255 mmHg Rt DPA Pressure 191 mmHg Lt DPA Pressure 208 mmHg Rt 1st Digit Pressure 168 mmHg Lt 1st Digit Pressure 136 mmHg Rt PT SUZANNE Resting NC Lt PT SUZANNE Resting NC Rt AT SUZANNE Resting 0.8 Lt AT SUZANNE Resting 0.87 Rt Digit/Arm Index 0.7 Lt Digit/Arm Index 0.57 Right Value Units Left Value Units FINDINGS: Performing Back Roller: Uma Baron RVT. Right Common Femoral Artery [...] above. Electronically Signed By: Joe Haynes MD [facility] [phone] 03/13/2025 9:38:45 AM CDT us Iman Koroma DO [facility] US PROCEDURES Final Result * Colonoscopy (12/08/2024 8:00 AM CDT) Anatomical Region Laterality Modality Other Narrative Procedure Note Mallory Pablo MD - 12/08/2024 8:00 AM CDT [facility] Endoscopy Lab Patient Name: Richelle Espinoza Procedure Date: 12/08/2024 8:00 AM Date of : 1960 Admit Type: Inpatient Age: 64 Gender: Female Note Status: Finalized Attending MD: Mallory Pablo M.D. Procedure Date: 12/08/2024 Procedure: Colonoscopy Indications: Gastrointestinal bleeding, Abnormal CT of the GItract Providers: Mallory Pablo M.D., DIA Clement (Anesthesia Staff), Jenn Black RN, Abbi Herrera, Fourdrinier Wire Weaver Referring MD: Aide Adair M.D. Medicines: Monitored [...] the bowel preparation was evaluated using theBBPS ([place] Bowel Preparation Scale) with scores of:Right Colon [...] bleeding hemorrhoids Procedure Code(s): --- Professional --- 72325, Colonoscopy, flexible; with endoscopicmucosal resection 49790, 59, Colonoscopy, flexible; with removal of tumor(s), polyp(s), or other lesion(s) by snare technique 86578, 59, Colonoscopy, flexible; with biopsy,single or multiple Diagnosis Code(s): --- Professional --- K64.8, Other hemorrhoids D12.0, Benign neoplasm of cecum D12.4, Benign neoplasm of descending colon D12.8, Benign neoplasm of rectum K92.2, Gastrointestinal hemorrhage, unspecified R93.3, Abnormal findings on diagnostic imaging of other parts of digestive tract CPT copyright 2020 [employer]. All rights reserved. The codes documented in this report are preliminary and upon dude wrangler reviewmay be revised to meet current compliance requirements. This report is electronically signed by Dr Art Pablo Mallory Pablo M.D. 12/08/2024 10:12:01 AM This report has been electronically signed by the physician. 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 DESIGNER) Hep A IgM Negative Negative [facility] Hep B core IgM Negative Negative [facility] Hep C Ab Negative Negative [facility] HepBsAg Negative Negative [facility] Blood specimen (specimen) 06/08/2017 8:08 PM CAR BODY DESIGNER 06/08/2017 8:23 PM CAR BODY DESIGNER Stacey Abrams MD LAB MICROBIOLOGY - GENERAL ORDERABLES Final Result [facility] [id number] [place] [address] from Last 3 Months or Most Recently Relevant to Health Maintenance Insurance [facility] MEDICARE [facility] MEDICARE SUPPLEMENT MEDICARE [facility] MEDICARE SUPPLEMENT MEDICARE [facility] CLAIMS OFFICE [facility] MEDICARE SUPPLEMENT Advance Directives For more information, please contact: [phone] Documents on File Type Date Recorded Patient Chief Controller Station Expl anation ADVANCE DIRECTIVE 02/12/2018 9:44 PM * Full Code (Latest Code Status on File) Date Activated Date Inactivated Comments 02/05/2025 1:00 AM 02/05/2025 3:49 PM * Full Code Date Activated Date Inactivated Comments 01/02/2025 2:34 PM 01/09/2025 8:34 PM * Full Code Date Activated Date Inactivated Comments 12/09/2024 11:38 PM 12/16/2024 10:19 PM * Full Code Date Activated Date Inactivated Comments 12/08/2024 6:51 AM 12/09/2024 2:18 PM * Full Code Date Activated Date Inactivated Comments 12/07/2024 11:46 AM 12/08/2024 6:51 AM Healthcare Agents on File Name Relationship Healthcare Agent Relationshi p Communication Hong Espinoza Spouse Health Care Agent Marimar Espinoza Daughter First Alternate Health Care Agent Care Teams Supervisor Home Energy Consultant Relationship Specialty Start Date End Date Aide Adair MD PCP - General 09/17/20 Stacey Abrams MD Referring Physician Nephrology 10/05/19 Jordy Avila MD [address] [place] [address] [address] Consulting Physician Vascular & Interven Rad 10/10/24
--- OUTSIDE RECORDS SUMMARY | 2025-06-12 12:09 | XMS_ITS | Clinical Summary ---
Author Organization [facility] Facility Address [address] [place] [id number] Care Team Providers Care Broach Grinder Name Role Phone Aide Adair MD Primary Care Provider Medications Oyster Shell 500 MG tablet Take/ chew 2 twice a day on empty stomach 120 tablet 11 12/29/2021 Active rOPINIRole (Requip) 0.25 MG tabletIndicatio ns:Restless Leg Syndrome Take 1 tablet (0.25 mg total) by mouth in the morning and 1 tablet (0.25 mg total) in the evening. For leg pain. 60 tablet 11 12/29/2021 Active Social History Tobacco Use Types Packs/Day Years Used Date Smoking Tobacco: Never Assessed Sex and Gender Information Value Date Recorded Sex Assigned at Not on file Legal Sex Male 2:49 PM EDT Gender Identity Not on file Sexual Orientation Not on file Plan of Treatment Health Maintenance Due Date Last Done Comments Pneumococcal Vaccine: 50+ Ye ars (1 of 2 - PCV) 1980 Colorectal Cancer Screening: Annual FOBT 2010 Colorectal Cancer Screening: Sigmoidoscopy 2010 Influenza Vaccine (#1) 2025 Colorectal Cancer Screening: Colonoscopy 12/08/2034 12/08/2024 Hepatitis B Vaccine Aged Out No longe r eligible based on patient's age to complete this topic Insurance [employer] Care Teams Broach Grinder Relationship Specialty Start Date End Date Aide Adair MD [address] [place] [id number] PCP - General Family Medicine 12/08/24
--- OUTSIDE RECORDS SUMMARY | 2025-06-12 12:09 | XMS_ITS | Clinical Summary ---
Author Organization [facility] Memolane Address [address] [place] [address] Care Team Providers Care Weblogic Administrator Name Role Phone Aide Adair MD Primary Care Provider + Source Comments [facility],non-owned Affiliates and Associated Physician Practices is amultiple site organization consisting of ambulatory clinics and hospital sitesin [place], [place], [place] and [place]. This disclosure is being madepursuant to the Care Everywhere program and may not contain all information available regarding this patient. Last updated 18.[facility] [place] Allergies No known active allergies Medications * Be aware that medications may not be up to date on this document. Alwaysverify current medications with the patient. gentamicin (GARAMYCIN) 0.1 % cream Apply 0.1 % to affected area. 8 Active losartan (COZAAR) 100 MG tablet Take 100 mg by mouth DAILY. 8 Active atenolol (TENORMIN) 25 MG tablet Take 100 mg by mouth DAILY. 8 Active amLODIPine (NORVASC) 10 MG tablet Take 10 mg by mouth DAILY. 8 Active gabapentin (NEURONTIN) 100 MG capsule Take 100 mg by mouth 2 times daily Active sevelamer carbonate (RENVELA) 800 MG Take 2 tablets by mouth 3 times daily before meals Take 2 with snacks Active atorvastatin (LIPITOR) 40 MG tablet once daily 9 Active levothyroxine (SYNTHROID) 112 MCG tablet Take 112 mcg by mouth daily before breakfast Active calcium carbonate (OS-CHANDLER 500) 1250 (500 Ca) MG tablet Take 2,500 mg by mouth 3 times daily Active ergocalciferol (DRISDOL) 1.25 MG (04419 UT) capsule Take 50,000 Units by mouth every 7 days Active oyster shell calcium 500 MG tablet TAKE 2 TABLETS BY MOUTH TWICE A DAY BETWEEN MEALS ON EMPTY STOMACH 0 Active calcium acetate (PHOSLO) 667 MG capsule calcium acetate(phosphate binders) 667 mg capsule Active NIFEdipine CR 24hr (Adalat CC) 60 MG tablet nifedipine ER 60 mg tablet,extended release TAKE 1 TABLET BY MOUTH ONCE DAILY IN THE MORNING Active rOPINIRole (Requip) 0.25 MG tablet ropinirole 0.25 mg tablet TAKE 1 TABLET BY MOUTH IN THE MORNING AND 1 IN THE EVENING FOR LEG PAIN 2 Active spironolactone (Aldactone) 25 MG tablet spironolactone 25 mg tablet TAKE 1 TABLET BY MOUTH ONCE DAILY Active Active Problems Problem Noted Date Diagnosed Date Leg fatigue 12/11/2018 Leg edema, right 12/11/2018 Arterial insufficiency of lower extremity 2018 Pre-transplant evaluation for kidney transplant 12/10/2017 Overview (02/10/2021): Images from the original note were not included. Listing date: 01/03/2018 Referring Endocrinology Nurse: Dr. Abrams Dialysis Type and Start Date: 06/11/2017 on PD Blood Type: O+ BMI: 28.34 ALERT: Pt tested positive for COVID week of 09/10/2020 ALERT: Per [facility] note from 09/18/2019, kidney to be placed on LEFT side d/t pt's calcifications and claudication, pt will need to have yearly CT a/ps per [facility] note from 09/18/2019 Short H/P summary: Pt is a 60 y.o. AA F with ESRD 2/2 HTN (dx in he mid 20s). Pt has not had a bx. She started dialysis 06/11/17 and is currently on PD. She has had a dewayne in the past. She still voids about 2 times pd and about 1/2 - 1 cup each time. 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 Her and her live together along with their grandchildren. She is currently on STD d/t her recent PD surgery and plans to go back to work eventually. 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 She is able to drive. Her post op support would be her daughter Dyana and . Her and both her daughters are interested LDs. Mom is and from a stroke. Pt does not know dad but knows he is . No significant family hx. Transplant surgery appt: 02/09/[address] Hutchinson Attestation signed by Deidre Hutchinson MD at 02/20/2020 5:47 AM Supervising Physicians Attestation: I have personally seen and examined the patient with the resident. I have reviewed the available notes, labs, and investigations. I agree with the resident's note with the following modifications/addendum. This is a 59 year old with HTN as a cause of ESRD, on PD. - hyperparathyroidism - papillary thyroid microcarcinoma s/p thyroidectomy and 3.5 hyperparathyroidectomy. - PVD and follows vascular. Denies any claudication symptoms at the present. Plan: Is a good candidate for transplant - cotinine screen today I discussed the use of Hepatitis C + donor kidneys in detail and she will decide if she wants to be considered for the same. Nephrology: 10/15/2017 pt was seen in clinic by Dr. Santiago Assessment and Plan: Don[place]aney was seen today for kidney transplant pre-evaluation. Diagnoses and all orders for this visit: ESRD (end stage renal disease) on dialysis -Patient currently on PD -Appears well dialyzed -No history of peritonitis -Volume status and electrolytes acceptable -UPE 1gm/gm -Albumin borderline low - 3.3 -Mgmt per Dr. Abrams Essential hypertension -BP well controlled -On atenolol 100mg daily and losartan 100mg daily Chronic kidney disease-mineral and bone disorder -PTH 129.7 -Vit D 34.8 -On sensipar 30mg daily -Phoslo 1334mg TID with meals for phos binding -Ca and phos acceptable Anemia in chronic kidney disease, on chronic dialysis -Hgb 12.3 -Iron stores acceptable -No need for ESAs Pre-transplant evaluation for kidney transplant At this time, Ms. Espinoza is an acceptable candidate for transplantation based on the available testing. She still has her cardiac testing and mammogram outstanding. She appears well dialyzed and compliant with her dialysis treatments. She has good family support at home and her is extremely motivated to assist her with all medical needs. Of concern is that the patient disclosed that she and her actively smoke marijuana recreationally. She was counseled on the risks of infectious complications from this and both she and her were told this was a contraindication to transplant should they continue to smoke. Patient's CT scan noted LLL consolidation that represented atelectasis vs chronic infection. This will need to be evaluated with chest CT. Ms. Espinoza is currently under the BMI cutoff for transplant, however, she does carry all her weight in her abdomen. She was advised by Dr. Hutchinson not to gain anymore weight. Prior to presenting the patient at [facility], I will need to review the followin.) Surface echocardiogram 2.) Cardiac stress test 3.) Mammogram results 4.) Colonoscopy 5.) Chest CT Consults: General Surgery for breast lump: 05/16/[address] Nohemi Zavala PLAN: -- We reviewed her recent imaging from [facility] which showed that the left breast mass is likely a complex cyst and 6 month follow up was recommended -- Will obtain internal read on outside imaging study -- We have scheduled her to have a repeat diagnostic mammogram and ultrasound pending outside read of her imaging studies -- Will call with these results and to arrange further follow up. 05/27/2019 - follow up call with mammogram results and plan of care Called Richelle Espinoza to discuss the internal imaging read of her mammogram and ultrasound which showed a left breast complicated cyst (BIRADS-2). She does not need repeat imaging and will be due for bilateral screening mammogram in 12/2019. I left a voicemail for Ms. Espinoza to call back to discuss this. Nohemi Zavala MD ENDOCRINOLOGY: Endocrinology: 12/26/2019: Dyllan Ortega MD Received labs from 11/25/2019 done at the dialysis unit prior to last telemedicine visit. These labs did not include TFT. Since it is already early 12/2019, will hold off doing TFT and obtain them in 01/2020 as discussed with pt during the visit. 10/28/2019 : Ca 9 / Phos 5.7 / PTH 27 11/25/2019 : Ca 6.1 / Phos 7.5/ PTH 100 / Vit D 34.6 Parathyroid and calcium are managed by primary nephrology. Addendum : Received the following lab: 12/23/2019 : # TSH 0.32 / TT4 10.2 [4.5-10.9] : while on LT4 112mcg daily. TSH is suppressed. Will decrease dose to 100mcg daily and recheck TFT in 3 months. # Vit D 41.4 / Ca 6.4 / Phos 6.1 / PTH 116 / AlkPhos 42 / Hgb 10.9 Above discussed with pt via phone on 12/31/2019. 12/09/2019: Pt followed by Dr. Ortega via telehealth visit Dyllan Ortega MD - 12/09/2019 11:00 AM CDT Endocrine Patient Visit Chief Complaint Patient presents with Abnormal Calcium Thyroid Problem This was a telemedicine visit with Richelle Espinoza alone which took place via Telephone. During the visit, I was located [facility] and the patient was located Home. The session started at 9:29am and ended at 9:47am. More than 50% of time spent counseling patient about thyroid replacement guidance, LT4 use, complications and risk of not taking LT4, LT4 dosing and monitoring. The patient has been informed that the visit may not be secure and acknowledged the information. I have explained the option of participating in a telephone or video visit during the ID- public health emergency to the patient. After being given an opportunity to ask questions about and discuss this type of visit, the patient verbally consented to proceeding with the telephone/video visit. The patient understands that this service replaces an office visit and they may be billed and/or responsible for any applicable copayments. Dyllan Ortega MD HPI: Last visit was on 04/21/2019 Initial visit was on 04/21/2019 Patient is a 59 y.o. female with HLD, HTN, ESRD 2/2 HTN on PD since 05/2017, subclinical hyperthyroidism and goiter, lump in left breast (under work up, presumed benign) , hysterectomy 2/2 fibroid, X 3. Post surgical hypothyroidism: - Pt was found to have Subclinical Hyperthyroidism in 05/2017 with large goiter . - She converted to overt hyperthyroidism as we were planning for substernal goiter resection and was on MMT before surgery. - She is S/P thyroidectomy 10/03/[address] Palumbo and pathology showed nodular hyperplasia and micro PTC (much less than 1mm) with no extrathyroidal extension and free margines. - She was started on LT4 at 112mcg daily after surgery. - She takes it LT4 appropriately. She denies missing LT4. - She missed her follow up testing. However, she says she does blood testing on a regular base at the dialysis center and she had some blood done earlier this month. I still do not have any post surgical labs for her. Will request these. - She did not notice significant difference since surgery. However, she says her blood numbers are better. - She denies neck swelling, pain or tenderness. Surgical wound healed well. - She denies dysphagia or odynophagia or wheezing - She denies palpitation, tremors, constipation, diarrhea, heat or cold intolerance, Unexplained weight changes, skin or hair changes. Hx of vitamin D deficiency, in the setting of ESRD on PD since 05/2017 with tertiary hyperparathyroidism and hypercalcemia. - At some point in the past, pt was on Sensipar but insurance did not cover it. - NO she is S/P 3.[address] Palumbo in 10/03/2019. The left upper, left lower, and right lower parathyroid glands were removed. The right upper parathyroid gland was biopsied and a small remnant was preserved in place. The remnant was clearly viable. Pathology showed hypercellular parathyroid in all retrieved parathyroid glands. - She was on calcitriol and doxercalciferol. These stopped since surgery. She is not on any calcium supplement currently. Endocrinology Nurse placed her on 50.000 units weekly. - managed by nephrology. Prediabetes: - 09/2017 : A1C 6.5% - 10/2018 : A1C 5.6% - She is still able to urinate and she denies increased urinary frequency. ----- ------- Assessment/Plan: Patient is a 59 y.o. female presenting for : Post surgical Hypothyroidism 2/2 large goiter and overt hyperthyroidism : - I counseled pt about the new diagnosis and the importance of LT4 use and the appropriate use. - Continue LT4 at 112mcg daily - Post surgical TFT were ordered to be done on 11/26/2019 but I have not received any results. Will reach out to the dialysis unit at ([phone]) and obtain most recent 2-3 sets of labs. If TFT were not done, will obtain labs now. Otherwise, will recheck TFT in 2 months (01/2020). Will mail orders to the pt and she will do them in the dialysis unit. Micro PTC: - much less than 1mm - considered cured - TSH goal is with in the normal range. 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 Borges Vitamin D deficiency: - on 50.000 units weekly - managed by nephrology / Dr. Borges Osteopenia / CKD-MBD: - As per DEXA from 06/2019 - repeat DEX scan in 06/2019 at time of next visit. - Calcium and Vitamin D replacement by nephrology. Prediabetes - discussed diet and life style changes. - Check A1C in 2 months. Plan: RTC in 06/2020 with DEXA scan same day. Problem List Digestive Vitamin D deficiency Relevant Orders Vitamin D 25 hydroxy Musculoskeletal Osteopenia Relevant Orders Dexa Axial and Forearm Bone Density Scan Endocrine/Metabolic Multinodular goiter S/P thyroidectomy 10/03/2019 - Primary Relevant Orders T4, free TSH Prediabetes Relevant Orders Hemoglobin A1c Tertiary hyperparathyroidism S/P 3.5 parathyroidectomy in 10/03/2019 Relevant Orders Dexa Axial and Forearm Bone Density Scan Post-surgical hypothyroidism Surgical Oncology: 10/21/2019 telephone enc Telephone Encounter - Dulce Groves NP - 10/21/2019 6:28 PM CDT I called and spoke to the patient and reviewed her lab results. Her serum calcium remains high. I discovered that she has been taking more calcitriol than prescribed (2 caps BID instead of 1 cap BID) so I advised her to decrease the dose. She will also decrease her calcium carbonate to twice daily. She will be seeing her improvement spec, Dr. Ortega in November with repeat labs. She will call with any questions or concerns. Dulce Groves APRN, [employer] pt to have total thyroidectomy and 3.5 gland parathyroidectomy on 10/02, she met with surgical oncologist on 10/03/2019 - notes in care everywhere Thyroidectomy and parathyroidectomy pathology report: 10/03/2019 FINAL Patient Name: RICHELLE ESPINOZA Gender: F : 1960 (Age: 59) Address: [address] [place] [address] Hospital #: [id number] Taken:10/03/2019 Received:10/03/2019 Reported: 10/09/2019 Patient Type: [facility] OP In Bed Service: Surgery Location: [facility] Physician(s): Ean Palumbo M.D. Aide Adair M.D. Dalila Dill M.D. Ladarius Velasco MD Diagnosis: A. Parathyroid, left upper #1, excision (AFR1) - Hypercellular parathyroid B. Parathyroid, left lower, excision (BFR1) - Hypercellular parathyroid - Atrophic thymic tissue C. Thyroid, total thyroidectomy - Nodular hyperplasia - Papillary thyroid microcarcinoma, much less than 1 mm - No extrathyroidal extension identified - Resection margins free of tumor D. Parathyroid, right lower, excision (DFR1) - Hypercellular parathyroid E. Parathyroid, right upper, excision (EFR1) - Hypercellular parathyroid Intraoperative Consultation: A. 0.05 g B. 0.22 g D. 0.23 g E. 0.14 g by Shanika Juares MD and Vickie Epps MS, PA ([facility]) AFR1: Left upper parathyroid #1 - Cellular parathyroid tissue, by Shanika Juares MD and Charles Cornell M.D. BFR1: Left lower parathyroid - Cellular parathyroid tissue, by Shanika Juares MD and Charles Cornell M.D. DFR1: Right lower parathyroid gland - Cellular parathyroid tissue, by Sahnika Juares MD and Charles Cornell M.D. EFR1: Right upper parathyroid gland - Cellular parathyroid tissue, by Shanika Juares MD and Charles Cornell M.D. Endocrinology: 04/21/2019 pt has established care with Dr. Dyllan Ortega Chief Complaint Patient presents with Thyroid Problem HPI: Initial visit on 04/21/19 Patient is a 59 y.o. female with HLD, HTN, ESRD 2/2 HTN on PD since 05/2017, subclinical hyperthyroidism and goiter, lump in left breast (under work up, presumed benign) , hysterectomy 2/2 fibroid, X 3. Subclinical Hyperthyroidism with large goiter: - Noted at least since 05/2017 - Family history of Graves/Richard or other thyroid related disorders : NO - History of neck radiation : NO - History of neck pain, tenderness, dysphagia, odynophagia: NO - Takes Biotin No - Denies : Heat intolerance, diarrhea, weight loss, insomnia, hair thinning, smooth skin, palpitations, tremors, Cold intolerance, constipation, weight gain, sleepiness, fatigue, thickening of hair, dry skin - 05/2017 : TSH 0.15 / FT4 1.06 - 11/2018 : TSH 0.01 / FT4 1.55 - She does not recall getting a DEXA scan. She denies history of fractures. - She denies cardiac history or strokes or heart attacks or palpitations or tremor or dizziness Goiter: - 11/09/2017 : CT chest without contrast Markedly enlarged left thyroid lobe with a large thyroid nodule. - 11/26/2017 : US : 1. Multiple predominantly solid nodules with scattered cystic spaces in the left thyroid gland measuring up to 4.6 cm in the lower pole (low suspicion with an estimated risk of malignancy of 5-10 percent). Given the nodule size, fine- needle aspiration is recommended for further evaluation. 2. Multiple subcentimeter spongiform nodules in the right lobe of the thyroid gland are likely benign. No biopsy is recommended. - 12/06/2017 : FNA of 2 dominant left thyroid nodules: Mid left and lower left : both are benign and consistent with benign follicular nodule. - 11/08/2018 : CT chest with out contrast : Thyromegaly with mass effect on the trachea. Unchanged compared to 10/2017 Hx of vitamin D deficiency, in the setting of ESRD on PD. - Vit D of 14.3 - on calcitriol and doxercalciferol - managed by nephrology. Assessment/Plan: Patient is a 59 y.o. female presenting for : Subclinical hyperthyroidism : - recheck TFT today still with suppressed TSH 0.01 but with mid normal FT3 at 3.44 and high normal FT4 at 1.77 with negative TSIG (<1.0). This makes a toxic nodule (in the setting of larger goiter) more likely an etiology for subclinical hyperthyroidism. - Pt is only 59 years old. NO cardiac history. No symptoms of hyperthyroidism. Will obtain DEXA to see if she had decreased bone density which could be an indication to treat subclinical hyperthyroidism. However, Pt has ESRD on PD and she could have CKD-MBD. If DEXA is normal, then no indication for treatment at this point of time. - Pt was instructed to reports sings and symptoms of hyperthyroidism. Goiter: with mass effect on Trachea per CT 10/2018 report: - Hx of benign FNA - will obtain old images to review. If there is trache compression, will discuss referring to surgery for thyroidectomy. In this case, I will treat subclinical hyperthyroidism before surgery. - No significant signs of obstruction at this point of time. Pt says the goiter is not bothering her and does not want surgery unless needed. Pt was instructed to reports sings and symptoms of obstruction. Prediabetes - A1C is 5.7% - discussed diet and life style changes. Plan: RTC in 3 months Problem List Endocrine/Metabolic Thyrotoxicosis without thyroid storm Multinodular goiter Subclinical hyperthyroidism - Primary Relevant Orders T4, free (Completed) T3, free (Completed) TSH (Completed) Thyroid stimulating immunoglobulin (Completed) Dexa Axial Skeleton Bone Density 1 or 2 Site Other Prediabetes Relevant Orders Hemoglobin A1c (Completed) Dexa scan: 06/25/2019 Patient Name: Richelle Espinoza Date of : 1960 Date of scan: 06/25/2019 Bone mineral density was performed on a H[employer] Discovery Densitometer. Machine Cross-calibration and Precision studies have been performed with a least significant change of 0.024 g/cm at the spine, 0.020 g/cm at the total proximal femur, and 0.014g/cm at the forearm. HISTORY: This is a 59 y.o. postmenopausal female. Currently on treatment with calcium, vitamin D. History of tobacco use: Social History Tobacco Use Smoking Status Former Smoker Last attempt to quit: 2007 Years since quittin.9 INDICATIONS: Menopause status and screening for osteoporosis. FINDINGS: BONE MINERAL DENSITY OF THE LUMBAR SPINE Bone Mineral Density (BMD) of the lumbar spine was measured from L1-L4 and the average density was calculated to be 1.040 gm/cm. This corresponds to a T-score standard deviations from the mean of young adults of -0.1. There is no previous study available for comparison. BONE MINERAL DENSITY OF THE PROXIMAL FEMUR Bone Mineral Density (BMD) of the left hip total was found to be 0.768 gm/cm2. This corresponds to a T-score standard deviations from the mean of young adults of -1.4. Femoral neck is 0.689 gm/cm2 with a T-score of -1.4. There is no previous study available for comparison. SUMMARY: Bone mineral density shows evidence of low bone mass in the hip and moderately increased fracture risk. ADDITIONAL COMMENTS: If the patient has a history of a fragility fracture, a fracture that occurred with trauma equivalent to a fall from a standing position or less, then the diagnosis is osteoporosis. The risk of osteoporotic fracture increases approximately 2-fold for each 1.0 SD decrease in T-score. However, low bone density is not the only risk factor for fracture. Other factors include patient s age, previous osteoporotic fracture or prior fracture as an adult, loss of height of greater than 2 inches, corticosteroid use, risk of falling, risk of injury, and family history of osteoporosis. Not everyone with low bone mineral density has osteoporosis. Osteomalacia and other metabolic bone disorders should also be considered where indicated. Patients who have osteoporosis should be evaluated for specific diseases and conditions (secondary causes) that may cause or contribute to bone loss. Consider repeating this study in 1-2 years to assess the patient s response to treatment, if applicable. It is recommended that any follow up exam be performed on the same machine if possible for better accuracy. DEFINITIONS: Osteoporosis: BMD at or below -2.5 T-score Osteopenia (low bone mass): BMD between -1.0 and-2.5 T-score. The Bone Health Program adopts the following WHO definitions: Osteoporosis: BMD below -2.5 S.D. as compared to the BMD of young normal adults. Osteopenia or Low Bone Mass: BMD between -1.0 and -2.5 S.D. below the BMD of young normal adults. Normal Bone Density: BMD equal to or greater than -1.0 S.D. as compared to the BMD of young normal adults. Thyroid US: 11/26/2017 (she is being followed by endocrinology now) FINDINGS: Right thyroid lobe: 5.4 x 2.5 x 2.2 cm Left thyroid lobe: 8.4 x 3.9 x 4.3 cm Isthmus: 3 mm Multiple subcentimeter spongiform nodules are identified within the right lobe of the thyroid gland. The largest spongiform nodule is located in the upper pole measuring 0.9 x 0.6 x 0.9 cm. Multiple prominently solid nodules with scattered cystic spaces are seen within the left thyroid gland. The largest of these nodules measures 4.6 x 3.3 x 3.7 cm in the lower pole. The isthmus is thickened on the left. Vascularity of the thyroid is normal. IMPRESSION: 1. Multiple predominantly solid nodules with scattered cystic spaces in the left thyroid gland measuring up to 4.6 cm in the lower pole (low suspicion with an estimated risk of malignancy of 5-10 percent). Given the nodule size, fine-needle aspiration is recommended for further evaluation. 2. Multiple subcentimeter spongiform nodules in the right lobe of the thyroid gland are likely benign. No biopsy is recommended. Thyroid FnA: 12/06/2017 Specimen Source: Thyroid Mass Collected: 12/06/2017 11:28 AM Resulting Agency: [facility] [id number] [facility] [id number] Specimen ID: [id number] Specimen Source: Thyroid Mass Collected: 12/06/2017 11:28 AM Resulting Agency: [facility] [address] [place] [id number] FINE NEEDLE ASPIRATION - THYROID (STL) Status: Final result Visible to patient: No (Not Released) Dx: Pre-transplant evaluation for kidney ... Order: [id number] 4d ago Case Report Medical Cytology Report Case: [id number] Authorizing Provider: Wei Charles MD Collected: 12/06/2017 11:28 AM Ordering Location: [facility] Received: 12/06/2017 12:31 PM Pathologist: Oswald Hutchison MD Specimens: A) - Thyroid Mass , left mid pole nodule B) - Thyroid Mass , left lower pole nodule Specimen Adequacy Adequate cellularity for evaluation. Final Diagnosis A. Thyroid, Left Mid, FNA: - Benign - Consistent with benign follicular nodule B. Thyroid, Left Lower, FNA: - Benign - Consistent with benign follicular nodule at 1535 Clinical History See result below Thyroid nodules Gross Description See result below Sp-A: Mid Left : 4 pap and 4 diff quik slides and 1 pap thin prep from 10cc bloody fluid Sp-B: Lower left: 4 pap and 4 diff quik slides and 1 pap thin prep slide Microscopic Description See result below SP-A:Thyroid, Left Mid -Review of 4 pap and 4diffquik slides and 1 pap thin prep slide reveals follicular cells, colloid and inflammatory cells. No nuclear grooves or inclusions are appreciated. There is no evidence of malignancy. SP-B: Thyroid, Left Lower - Review of 4 pap and 4 diffquik slides and 1 pap thin prep slide reveals follicular cells, colloid, histiocytes, inflammatory cells. No nuclear grooves or inclusions are appreciated. There is no evidence of malignancy. Preliminary Diagnosis: Immediate interpretation given by Dr. Gemini Hutchison Thyroid, Left Mid Episode 1 Pass 1- colloid and rare follicular cells Pass 2- colloid and rare follicular cells Pass 3- colloid and rare follicular cells Pass 4- colloid and rare follicular cells (11:41AM) Thyroid, Left Lower Episode 1 Pass 1- some follicular cells seen Pas 2- colloid, some follicular cells, many histiocytes Pass 3- colloid, many histiocytes Pass 4- colloid, follicular cells, some histiocytes (11:45AM) Vascular: 12/01/[address] Doshi Plan: Ms. Espinoza is a 59 year old female PAD. She had some left leg claudication in the past but this has resolved, potentially since she is not as active as before. Her SUZANNE is 0.5 on the left, which is unchanged from when I saw her 6 months ago. Duplex today shows SFA occlusion and some tibial disease which is of course not surprising at all. She has easily palpable femoral pulses so I do not suspect iliac disease. I discussed the natural history of PAD again with her again today. She remains on the renal transplant list. Given her palpable femoral pulses, she should be able to have an iliac anastomosis with no issues. This could like be done on the right side as opposed to the left but really there is no absolute contraindication to using the left side either. I have again recommended she be started on an aspirin. She should stay on a statin. We would like to see her back in a year with a repeat SUZANNE and LLE duplex. She knows to call sooner if questions or concerns arise. Narinder Doshi M.D. ABIs: 12/01/2019 Left arterial Duplex LE: 12/01/2019 Vascular: 06/16/2019 pt was seen in clinic by Dr. Doshi Physical Exam: NAD Palpable femoral pulses bilaterally Doppler PT on right (triphasic) and on the left (biphasic) Plan: Ms.. Espinoza is a 59 year old female with LLE claudication. Her SUZANNE is 0.5 on the right. I suspect she has SFA and maybe some tibial disease. Her symptoms are actually getting better with a walking regimen. She has easily palpable femoral pulses so I do not suspect iliac disease. I discussed PAD at length with her and her today. She remains on the renal transplant list and I think this is her most important current health issue. I do not see any reason she should not stay on the list. Given her palpable femoral pulses, she should be able to have an iliac anastomosis with no issues. She does have LLE claudication but this does not bother her much. I have recommended she be started on an aspirin. She should stay on a statin. I would like to see her back in 6 months with a repeat SUZANNE and LLE duplex. All of her questions were answered. Narinder Doshi M.D. 12/11/2018 pt was seen by Loren Severino APRN A/p:Ms. Espinoza is a 58 year old female with RLE leg fatigue and edema and hx of arterial insufficiency LLE. She may have combined venous and arterial insufficiency with claudication of the RLE as well. I have ordered SUZANNE's with exercise and venous reflux study. I have recommended she wear mild knee high compression stockings and elevate the leg to help with edema. She should start a walking exercise program to condition the leg muscles. She will be contacted with results and recommendations for f/u. Vascular note: 01/17/2019 Exercise ABIs: SUZANNE and Venous reflux study results given to patient SUZANNE's RLE- 0.85 with toe pressure 110, drops with exercise to 0.53 LLE- 0.46 with toe pressure 52, drops with exercise to 0.21 Reflux in R CFV and popliteal vein Reflux in R GSV at SFJ and knee only A/P: PAD with claudication. She denies rest pain at this time. Offered Pletal, but declined at this time. States claudication is not lifestyle limiting. Recommend daily exercise program. F/u 6 months with SUZANNE's and ov. RLE deep and superficial venous insufficiency. Unable to surgically treat deep system- medical management only with compression stockings, leg elevation and walking. R superficial system does not qualify for EVLT at this time due to reflux at SFJ and knee only. Continue medical management at this time. Instructed patient to call sooner should condition change. [facility] Notes: 02/10/2021 Committee Review Decision: Remove Absolute Contraindications: Vascular disease Committee Discussion Details: Patient's case was reviewed at [facility]. Patient completed evaluation testing on 01/26/2021. CT a/p wo contrast results reviewed with team. Consensus among all txp surgeons that the calcifications have progressed and are much worse from previous imaging. Pt is not transplantable. Per team, remove from waitlist as pt is no longer a candidate for txp surgery. 05/13/2020: Committee Discussion Details: Pt's case presented at [facility] to see if we can re-activate her back on the kidney wait list. Team aware pt was made INACTIVE d/t positive nicotine and cotinine screening. She needed to produce a negative screen before we would re-activate her back on the list. Team aware pt has. HH and evaluation work up reviewed but not limited to: - hyperparathyroidism with parathyroidectomy - hx of large thyroid goiter, had total thyroidectomy, pt with papillary thyroid microcarcinoma, team aware we discussed and reviewed pathology at prior [facility], pt still follows with endocrinology - PVD, follows with Dr. Doshi, SUZANNE and duplex reviewed, Dr. 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 02/26/2020: Committee Discussion Details: Pt's case discussed at [facility] today d/t positive nicotine/cotinine screen. Team aware pt has been listed with us for a while, she completed her annual testing and had a positive cotinine screen but negative nicotine screen, pt repeated and was positive for both nicotine and cotinine, team aware pt states she did start smoking again and is smoking about 5 cigs per day. Team aware pt stated this is d/t family smoking around her all the time and coping mechanisms with her . Team aware pt with PVD, reviewed CT imaging. Per team, ok to inactivate, pt will need to repeat in 8 weeks and have a negative nicotine screen. 01/15/2020: Committee Discussion Details: Pt's case was presented at [facility] to discuss her total thyroidectomy and parathyroidectomy pathology report. Reviewed pathology report and endocrinology's clinic note that states: Micro PTC: - much less than 1mm - considered cured - TSH goal is with in the normal range. Per team, pt is ok to remain listed actively. 09/18/2019: Committee Discussion Details: Pt's case represented at [facility] to review her UTD CT imaging as pt with hx of calcifications and claudication. Reviewed CT imaging and most recent vascular note along with ABIs. Per team, ok to keep ACTIVE. Need to place ALERT in chart that kidney needs to go on Left side, will need yearly CT a/p for evaluation of calcifications 08/07/2019 Committee Discussion Details: Pt's case was presented at [facility] to discuss her evaluation work up as there was follow up needed to last [facility] note from 04/17/2019. Reviewed [facility] note from 04/17/19 with team. - left breast mass followed up by Dr. Nohemi Zavala, repeat diagnostic mammogram, compared with prior mammogram from [facility]. Per Dr. Zavala, left breast mass is a complicated cyst (Bi-rads 2) and she does not need repeat imaging until 12/2019 - PTH was 732, pt is on hectoral, most recent PTH from 07/28/2019 was 682 - re-discussed pt's claudication, reviewed recent ABIs and vascular's clinic note from 06/16. Reviewed prior CT imaging from 09/2017. - re-reviewed pt's history of thyromegaly, prior scans and fna, and pt's most recent endocrinology clinic progress note, no significant signs of obstruction at this point of time, pt states goiter is not bothering her and doesn't want sx unless needed, pt instr to report s&s of obstruction, return to clinic in 3 months - sleep study report reviewed from 02/13/2018 with team as it shows pt with mild overall ROMA and CPAP recommended, but pt states does not have one/not wearing one Per team, pt needs to follow up on CPAP machine use, lets have her repeat CT a/p and then represent once completed. 04/17/2019 Committee Discussion Details: Pt's case was presented at [facility] to discuss her case as she has a LD in work up. - Reviewed with team pt's current PTH 732, team aware pt recently started hectoral 5mg daily in February, new labs to be drawn next week, will follow up - pt with thyromegaly and palpable nodule on PCP exam from 11/2018, reviewed CT chest 10/2017, thyroid US from 11/2017 and FNA results. Reviewed TSH and T4 results with team which PCP had completed, team aware pt with endocrinology appt on Sunday, will follow up - discussed her c/o claudication with team from her clinic appt in November which we had her see vascular, reviewed vascular's note, CT from 09/2017 and recent ABIs and venous studies with team. Team aware pt with f/u appt with vascular in 05/2019. Team aware I spoke with pt yesterday and she has no c/o claudication. Per team, Kidney will need to go on right side, she needs to continue lifestyle management and f/u with vascular, will place ALERT - discussed PCP breast exam with team, palpable mass on left breast, PCP suggested her to see a surgeon but they only complete mammogram, reviewed mammogram results and recommendation 6 month f/u, per team, pt needs to see breast surgeon for further evaluation of mass based off of palpitation and mammo results, send her to Dr. Vanessa Montero. Will request to be scheduled 12/20/2017: Committee Discussion Details: Pt case was presented for approval to list. HH reviewed as well as evaluation testing but not limited to: - occasional mj use, negative screen, pt aware she has to drug free for txp - sleep study recommended as pt's states she snores, BMI 28, does not need to preclude listing - CT a/p - calcs ok, SUZANNE's - ? Disease distally, pulses were assessed in clinic - Chest CT completed to evaluate bronchiectasiss seen on LLL and d/t hx of smoking (per protocol), reviewed results. Pt will need a follow up CT chest in 1 year to re-evaluate 2mm RU and RLL nodules - elevated lipid panel, labs were sent to PCP, pt was started on stating - ECHO - 65% EF, grade 1 diastolic dysfunction - DSE - normal but was submaximal at 63%, pt did take BP meds night before, had her complete nuc med, reviewed - neg for ischemia, EF 63% - panorex - will need to see dentist d/t possible cavity - Reviewed thyroid US and FNA results - benign follicular nodules - mammogram and US completed - bi-rads 2 - benign, repeat annually Teams decision is that pt is ok to list. Will follow up with pt about sleep study and dentist. Evaluation Testing Date and Results: Labs: 01/26/2021 PTH: 56.8 A1c: 5.6 Glucose: 94 GFR: 3 Serologies: +HepAAb, +HepBsAb, all others negative CMV Igg: Positive (10/04/17) EBV Igg: Positive (10/04/17) Albumin: 3.4 Tox Screen: Cotinine 30, all others negative Toxo: Strongyloids: 0.0 MMR: Immune (12/30/19) Varicella: Immune (10/04/17) PRA: 0, 1 Uric Acid: 6.3 Total Cholesterol: 254 Trigycerides: 167 Cotinine: 30, 3-Hydroxy Cotinine 16 (Nicotine <2) Results for RICHELLE ESPINOZA ( ) as of 02/20/2020 14:46 Ref. Range 11/08/2018 12:17 12/30/2019 08:30 02/09/2020 15:25 Cotinine Latest Units: ng/mL 3.6 52 182 3-Hydroxy Cotinine Latest Units: ng/mL 35 34 Nicotine Latest Units: ng/mL None Detected <2 8 Results for RICHELLE ESPINOZA ( ) as of 01/12/2020 16:54 Ref. Range 12/30/2019 08:30 Total Cholesterol (NMR) Latest Ref Range: <200 mg/dL 199 Triglycerides Latest Ref Range: <150 mg/dL 240 (H) HDL Latest Ref Range: >40 mg/dL 43 LDL Calculated Latest Ref Range: <100 mg/dL 108 (H) COVID Vaccine J&J 11/01/2020 - scanned in Media tab COVID-19 Antigen swab negative 09/21/20 & 10/04/20 - scanned in media Echo: 01/26/2021 Summary Left ventricular systolic function is normal with an ejection fraction by Biplane Method of Discs of 61 %. There is moderate concentric left ventricular hypertrophy. Left ventricular segmental wall motion is normal. The left ventricular diastolic function is abnormal (Grade II), consistent with elevated left ventricle filling pressures. The right ventricular cavity size is normal. Normal right ventricular systolic function. There is moderate mitral regurgitation. There is trace tricuspid regurgitation. Mild pulmonary hypertension, estimated pulmonary arterial systolic pressure is 39 mmHg. Compared to prior study in 12/2019, there is no significant change. Findings Left Ventricle The left ventricle is moderately increased in size. Left ventricular systolic function is normal with an ejection fraction by Biplane Method of Discs of 61 %. There is moderate concentric left ventricular hypertrophy. Left ventricular segmental wall motion is normal. The left ventricular diastolic function is abnormal (Grade II), consistent with elevated left ventricle filling pressures. Right Ventricle The right ventricular cavity size is normal. Normal right ventricular systolic function. Ventricular Septum The ventricular septum is intact by two-dimensional and color flow interrogation. Left Atrium The left atrium is moderately enlarged. Right Atrium The right atrium is enlarged. Atrial Septum There is no evidence of ASD/PFO by color Doppler. Aortic Valve The aortic valve is trileaflet. There is no aortic stenosis with a peak velocity of 1.2 m/sec, mean gradient of 3 mmHg, aortic valve area of 2.7 cm , and an NSDI of 0.87. There is no aortic regurgitation. Pulmonary Valve The pulmonic valve is not well visualized. There is no Doppler evidence of pulmonic valve sclerosis or stenosis. There is no pulmonic Regurgitation. Mitral Valve The mitral valve leaflets are structurally normal. There is no mitral stenosis. There is moderate mitral regurgitation. Tricuspid Valve The tricuspid valve leaflets are structurally normal. There is no tricuspid stenosis. There is trace tricuspid regurgitation. Mild pulmonary hypertension, estimated pulmonary arterial systolic pressure is 39 mmHg. Aorta The aortic measurements are indexed to age and body surface area. The aortic root at the sinus of valsalva is normal in size measuring 2.93 cm with an index of 1.68 cm/m2. The proximal ascending aorta is normal in size measuring 2.66 cm with an index of 1.52 cm/m2. Inferior Vena Cava The IVC is normal in size (< 2.1 cm), > 50% respiratory variance, RA pressure normal at 3 mmHg. Pericardium / Pleural Effusion There is no pericardial effusion visualized. NM Stress: 01/26/2021 FINDINGS: The image quality is technically adequate without significant motion or adjacent bowel activity. In the stress and rest SPECT/CT images, the left ventricle is normal in size. The stress SPECT/CT images show a normal pattern of myocardial perfusion. There is no significant change in the perfusion pattern at rest. Gated SPECT/CT images show normal myocardial thickening and normal wall motion. The calculated left ventricular ejection fraction is 54%. The CT portion of the SPECT-CT showed rim calcified left breast 1 cm soft tissue, correlated with prior mammography, atherosclerotic coronary/aortic wall changes, prominent heart size, subtle calcification in the spleen, partially visualized ascites and degenerative changes in the thoracic spine. In comparison with the prior myocardial perfusion study dated on 12/30/2019, there is no significant change noted on today's study. IMPRESSION: 1. No evidence of myocardial infarction or stress-induced ischemia. 2. Normal left ventricular function with a calculated left ventricular ejection fraction of 54%, previously 56%. Echo: 12/30/2019 Nuc Med: 12/30/2019 The heart rate at rest was 58 bpm at baseline and increased to 91 bpm during the vasodilator infusion. The BP was 175/99 mmHg at rest and 130/81 mmHg after the stress procedure. A separate ECG report will be read by Cardiology. FINDINGS: The image quality is technically excellent without significant motion or adjacent bowel activity. In the stress and rest SPECT/CT images, the left ventricle is normal in size. The stress SPECT/CT images show a normal pattern of myocardial perfusion. There is no significant change in the perfusion pattern at rest. Gated SPECT/CT images show normal myocardial thickening and normal wall motion. The calculated left ventricular ejection fraction is 56%. The CT portion of the SPECT-CT showed degenerative changes in the thoracic spine. In comparison with the prior myocardial perfusion study dated 11/08/2018, there is no significant change noted on today's study. IMPRESSION: 1. No evidence of myocardial infarction or stress-induced ischemia. 2. Normal left ventricular function with a calculated left ventricular ejection fraction of 56%, previously 59%. [id number] Cardiac Cath: N/A CXR: 01/26/2021 FINDINGS: COMPARISON: 12/30/2019 There is no focal consolidation, pleural effusion, or pneumothorax. The cardiomediastinal silhouette is normal. The visible bony thorax is intact. IMPRESSION: No acute pulmonary process. CT A/P wo contrast: 01/26/2021 Findings Evaluation of visceral and vascular structures is degraded due to lack of intravenous contrast administration. Lower Chest: Grossly unchanged atherosclerotic calcification of coronary arteries. Grossly unchanged left greater than right bibasilar bronchiectasis with bronchial wall thickening. No suspicious lung nodules. Hepatobiliary: There is a subcentimeter cystic lesion in the left hepatic lobe dome which is too small to characterize. Punctate calcification in the left hepatic lobe is redemonstrated likely representing sequela from prior granulomatous disease. The gallbladder is normal. Pancreas: Unchanged scattered calcifications along the pancreas may represent intraparenchymal calcification or splenic artery calcification. Spleen: Multiple punctate calcification in the spleen again likely represents sequela from prior granulomatous disease. Otherwise normal. Kidneys: Unchanged small bilateral kidneys without hydronephrosis. Unchanged small calcifications in bilateral renal pelvis may represent nonobstructing kidney stones or renal artery calcifications. Adrenals: The right adrenal gland is normal. Unchanged mild thickening of left adrenal gland measuring up to 9 mm (series 3 image 28). Retroperitoneum: There is no abdominal lymphadenopathy. Peritoneum: Peritoneal dialysis tube terminates in the pelvis, unchanged. Interval increase of ascites, now moderate. Gastrointestinal: Small hiatal hernia. Otherwise the stomach and visualized loops of bowel are unremarkable. Appendix: Normal. Pelvic Structures: Normal. Vasculature: Redemonstrated heavy atherosclerotic calcification of the aorta and branch vessels. Specifically there is circumferential calcification of the origin of celiac trunk and superior mesenteric artery, bilateral common iliac arteries, bilateral external and internal iliac arteries. Bones: The visible osseous structures are intact. Degenerative changes at lumbar spine. Soft tissues: Normal. Impression: 1.Moderate atherosclerotic calcification of bilateral external and internal iliac arteries. 2.Unchanged multiple small calcifications and bilateral renal pelvis may represent nonobstructing renal calculi or renal artery calcifications. 3.Unchanged position of peritoneal dialysis tube with interval increase of ascites, now moderate. 4.Unchanged bilateral lower lobe bronchiectasis likely represent sequela of chronic aspiration. CT ANGIO ABD AORTA W CONTRAST 10/20/2020 EXAMINATION: Computed tomography (CT) angiography of the abdomen, pelvis, and lower extremities with contrast TECHNIQUE: CT angiography of the abdomen, pelvis, and lower extremities was performed following the uneventful administration of 100 mL of Isovue 370 intravenous contrast according to standard protocol. Findings Abdominal aorta: Atherosclerotic without significant focal stenosis or aneurysm. Celiac axis and major branches: Atherosclerotic with mild stenosis prior to its branching (series 5, image 15). Superior mesenteric artery: Atherosclerotic with mild multifocal stenoses. Inferior mesenteric artery: Atherosclerotic but patent without significant focal stenosis. Right renal artery: Atherosclerotic with severe multifocal stenoses. Left renal artery: Atherosclerotic with severe multifocal stenoses. Right common iliac artery: Atherosclerotic but patent with moderate focal stenosis. Right internal iliac artery: Atherosclerotic with severe multifocal stenoses. Right external iliac artery: Atherosclerotic with mild multifocal stenoses. Right common femoral artery: Atherosclerotic with mild multifocal stenoses. Right profunda femoris artery: Atherosclerotic with moderate multifocal stenoses. Right superficial femoral artery: Atherosclerotic with moderate multifocal stenoses. Right popliteal artery: Atherosclerotic with severe multifocal stenoses. Right anterior tibial artery: Occluded just after its takeoff with distal reconstitution. Right tibioperoneal trunk: Atherosclerotic with severe multifocal stenoses. Right posterior tibial artery: Atherosclerotic with severe multifocal stenoses. Right peroneal artery: Occluded in the midcalf, with distal reconstitution. Left common iliac artery: Atherosclerotic with mild multifocal stenoses. Left internal iliac artery: Atherosclerotic with severe multifocal stenoses. Left external iliac artery: Atherosclerotic with mild multifocal stenoses. Left common femoral artery: Atherosclerotic with moderate multifocal stenoses. Left profunda femoris artery: Atherosclerotic with moderate multifocal stenoses. Left superficial femoral artery: Atherosclerotic with severe multifocal stenoses. There is a short segment occlusion just after its takeoff measuring approximately 2 cm, with a short area of opacification followed by a long segment occlusion measuring approximately 14 cm to the level of the popliteal artery. Left popliteal artery: Atherosclerotic with severe multifocal stenoses. Left anterior tibial artery: Atherosclerotic with severe multifocal stenoses. Left tibioperoneal trunk: Atherosclerotic with severe multifocal stenoses. Left posterior tibial artery: Calcified at its origin and atherosclerotic with multifocal areas of stenosis. Left peroneal artery: Atherosclerotic with severe multifocal stenoses. Lower Chest: Mild bibasilar atelectasis. Abdomen/pelvis: Hepatobiliary: Normal. Pancreas: Normal. Spleen: Normal. Kidneys: Atrophic bilaterally. Adrenals: Normal. Retroperitoneum: Normal. Peritoneum: No free intraperitoneal air. There is a peritoneal dialysis catheter which courses through the left abdominal wall and loops and terminates within the pelvis. There is small to moderate volume intraperitoneal fluid present, which may be secondary to intraperitoneal dialysis. Gastrointestinal: The stomach and visualized loops of bowel are unremarkable. The appendix is not identified, but no inflammatory changes are seen in the right lower quadrant. Pelvic Structures: Normal. Vasculature: Scattered atherosclerotic vasculature changes. Bones: The visible osseous structures are intact. Degenerative changes are seen in the lower lumbar spine. Soft tissues: Normal. Impression: 1.Moderate to severe atherosclerosis of the abdominal aorta and of multiple arteries in the abdomen/pelvis. 2.Right lower extremity: Moderate atherosclerosis of the right common iliac artery, severe multifocal stenosis of the right internal iliac artery and mild atherosclerosis of the right external iliac artery. Multifocal areas of stenosis throughout the right lower extremity with single vessel runoff to the right foot. 3.Left lower extremity: Mild atherosclerosis of the left common iliac artery, severe atherosclerosis of the left internal iliac artery and mild atherosclerotic stenosis of the left external iliac artery. The superficial femoral artery is occluded just after its origin for approximately 2 cm followed by a short segment of opacification, followed by a long segment of occlusion to the level of the popliteal artery measuring approximately 14 cm. Popliteal artery is patent with severe multifocal stenoses. Severe multifocal stenoses throughout the calf vessels with a three-vessel runoff to the left foot. 4.Atrophic kidneys bilaterally. 5.Intraperitoneal dialysis catheter with small to moderate volume intraperitoneal fluid likely secondary to intraperitoneal dialysis. CT a/p non-contrast: 09/09/2019 (will need yearly CT a/p d/t calcifications and claudication) FINDINGS: The visible lung bases are clear of focal consolidation. Mild basilar bronchiectasis is evident. The heart size is normal without pericardial effusion. Other than a few calcified granulomas (images 29-30 series 3), the liver appears normal within the limits of a noncontrast study. The gallbladder is decompressed. Curvilinear hyperdensities along its dependent wall may represent small gallstones, wall calcification, adenomyomatosis (image 40 series 3). The intrahepatic and extrahepatic bile ducts are not dilated. Calcified granulomas are seen in the spleen. Punctate calcifications are seen along the borders of the pancreas and may be located within the parenchyma or the surrounding arteries. The pancreas and adrenal glands are otherwise normal. The kidneys are slightly atrophic and contain nonobstructive calculi. No hydronephrosis is seen. Peritoneal dialysis tubing terminates in the pelvis. No free air is identified in the abdomen. The distal esophagus and stomach appear normal. The small bowel and large bowel are normal in caliber without evidence of wall thickening or obstruction. The appendix appears normal without appendicolith or surrounding inflammatory changes. There is no abdominal lymphadenopathy. The aorta is normal in course and caliber. The coronary arteries and aorta are extensively atherosclerotic. There is moderate atherosclerotic calcification of the bilateral external iliac arteries and moderate atherosclerotic calcification of the bilateral internal iliac arteries. A small amount of free pelvic fluid is seen. The urinary bladder is nearly empty. The uterus is absent. There is no pelvic lymphadenopathy. Bone windows show no lytic or blastic lesions. The visible osseous structures are intact. Mild multilevel degenerative changes are noted in the spine. IMPRESSION: 1. Moderate atherosclerotic calcification of the bilateral external and internal iliac arteries. 2. Nonobstructive bilateral renal calculi. 3. Small amount of free pelvic fluid, likely related to peritoneal dialysis. CT a/p non-contrast: 10/04/2017 FINDINGS: Evaluation of visceral and vascular structures is limited due to lack of intravenous contrast administration. The aorta is normal in course and caliber. Mild atherosclerotic calcifications are noted in the aorta and its major branches including the common and external iliac arteries. Mild bilateral dependent atelectasis is present. Otherwise no focal consolidation is seen in the visible lung bases. Mild left lower lobe bronchiectasis likely represents sequela of chronic infection or aspiration. The heart size is normal without pericardial effusion. The liver appears normal for the noncontrast technique. Small perihepatic ascites is noted. The gallbladder is decompressed. The intrahepatic and extrahepatic bile ducts are nondilated. Other than a small calcified granuloma in the spleen, the spleen and pancreas appear normal for the noncontrast technique. There is mild thickening of the bilateral adrenal glands. The kidneys are mildly atrophic with evidence of vascular calcification in the renal sinus cyst. No renal, ureteral, or bladder calculi are visible. There is no evidence of hydronephrosis or hydroureter. The distal esophagus and stomach appear normal. The small bowel and large bowel are normal in caliber without evidence of wall thickening or obstruction. The appendix appears normal without appendicolith or surrounding inflammatory changes. No free air is identified within the abdomen. There is no abdominal lymphadenopathy. A peritoneal dialysis catheter is present with a small volume abdominopelvic ascites. The urinary bladder is nondistended. The uterus is absent/atrophic. There is no pelvic lymphadenopathy. Bone windows demonstrate no suspicious lytic or blastic lesions. The visible osseous structures are intact. Mild multilevel degenerative changes are noted in the spine. IMPRESSION: 1. Mild atherosclerotic calcification in the aorta and its major branches, including bilateral iliac arteries 2. Small volume abdominopelvic ascites likely related to peritoneal dialysis. 10/08/[address] Hutchinson, iliacs are ok, get Chest CT to evaluate LLL findings CT chest non-contrast: 11/08/18 FINDINGS: Evaluation of visceral and vascular structures is degraded due to lack of intravenous contrast administration. A left-sided three-vessel aortic arch is present. Atherosclerotic calcification of the aortic arch and its major branching vessels is seen. Coronary artery disease is present. Mild bronchiectasis and groundglass opacity in the bilateral lung bases can be seen in setting of chronic aspiration. The appearance is unchanged from the prior exam. No pleural effusion or pneumothorax is identified. No pleural thickening is seen. A 2 mm right lower lobe pulmonary nodule is unchanged (series 4 image 63). A 3 mm subpleural right posterior lower lobe pulmonary nodule is unchanged (series 4 image 50). The trachea is patent. Cardiac size is within normal limits. No pericardial effusion is present. No mediastinal, subclavicular, axillary, or hilar lymphadenopathy is seen. Thyroid enlargement with mass effect on the trachea is unchanged. Small volume ascites is partially imaged. The partially imaged kidneys are atrophic bilaterally. Otherwise, the visible portions of the liver, gallbladder, spleen, pancreas, adrenal glands, kidneys, stomach, and bowel are normal. Bone windows demonstrate no suspicious lytic or blastic lesions. The visible osseous structures are intact. A simple cystic structures seen in the soft tissues of the left breast, measuring 1.8 cm AP by 1.7 cm TV (series 3 image 35), previously documented on prior breast ultrasound dated 10/09/2017). IMPRESSION: 1. No acute process identified in the chest. Lower lobe pulmonary nodules measuring up to 2 mm. These are likely benign. 2. Benign 1.8 cm cystic lesion within the left breast soft tissues, previously evaluated on breast sonogram dated 10/09/2017. 3. Thyromegaly with mass effect on the trachea. Correlation with thyroid function tests is recommended. 4. Mild ascites CT chest: 11/09/17 FINDINGS: Evaluation of visceral and vascular structures is degraded due to lack of intravenous contrast administration. There is a left-sided three-vessel aortic arch. The aorta and main pulmonary arteries are normal in course and caliber. The lungs are clear of focal consolidation. No pleural effusion or focal pleural thickening is identified. There is no evidence of pneumothorax. A 2 mm subpleural nodule is seen in the right upper lobe (series 4, image 11). A second 2 mm nodule is seen in the right lower lobe (series 4, image 74). The trachea is patent and midline. The left thyroid lobe is markedly enlarged measuring 5.4 x 5.4 cm (image 7, series 2) and extends into the superior mediastinum causing mass effect on the trachea which is narrowed and deviated to the right. A large left thyroid lobe nodule is identified. The right thyroid lobe appears normal. A 2.3 cm soft tissue lesion is identified in the outer left breast (series 3 image 37). The heart size is normal. No pericardial effusion is present. No mediastinal, supraclavicular, or axillary lymphadenopathy is seen. Calcified right hilar lymph nodes represent old granulomatous disease. The visible portions of the liver, spleen, pancreas, adrenal glands, stomach, and bowel are normal. The kidneys are atrophic bilaterally. Bone windows demonstrate no suspicious lytic or blastic lesions. The visible osseous structures are intact. IMPRESSION: 1. Two mm right upper and right lower lobe nodules. A twelve-month follow-up CT can be considered. 2. Markedly enlarged left thyroid lobe with a large thyroid nodule. Thyroid ultrasound is recommended for further evaluation. 3. Soft tissue nodule measuring 2.3 cm in the left outer breast. Mammographic correlation is recommended Renal US: 11/08/18 FINDINGS: Right kidney: 6.9 x 3.0 x 3.6 cm Left kidney: 8.6 x 4.0 x 2.7 cm Renal parenchymal echogenicity has increased bilaterally. There is a small simple cyst measuring up to 9 mm x 7 mm x 6 mm in the right kidney. There is an additional simple cyst measuring up to 7 mm x 7 mm x 6 mm in the left kidney. There is no evidence of a solid renal mass, renal calculi, or hydronephrosis. Blood flow is seen within the renal arteries and veins. The urinary bladder is partially distended. IMPRESSION: 1.Bilateral small kidneys with increased in echogenicity, consistent with chronic renal disease. 2.Bilateral subcentimeter simple renal cysts. ABIS 10/06/2020 PPD: Colonoscopy: 10/24/2017 (due by 10/25/2027) Mammogram: 05/20/2020 Findings: No suspicious mass, grouped microcalcification or architectural distortion is seen. Previously documented complicated cyst in the upper outer left breast has decreased in size and is now calcified. No significant change is noted since the prior examination. Breast parenchymal density: There are scattered areas of fibroglandular density. This examination was subjected to CAD analysis. IMPRESSION: No mammographic evidence of malignancy. ASSESSMENT: BI-RADS category 2, benign findings. RECOMMENDATION: Annual screening mammograms are recommended. Dx left mammogram: Completed here at [facility] DATE: 06/12/2019 HISTORY: 59-year-old female presents for short-term follow-up left breast mass COMPARISON: Several prior studies most recently 02/14/2019 [facility] BREAST COMPOSITION: There are scattered areas of fibroglandular density. FINDINGS: Circumscribed mass in the upper outer left breast mid depth has decreased slightly in size since the prior mammogram and now currently measures 1.8 cm. In 2016 it measured 3.3 cm. No suspicious mass, architectural distortion, or calcifications in either breast. Otherwise there is no significant change compared to the prior study. IMPRESSION: Further decrease in size of ultrasound documented complicated cyst ASSESSMENT: BIRADS Category 2: Benign finding(s). RECOMMENDATION: Bilateral screening mammogram in January 2020 Mammogram: 02/14/2019 Mammogram and US: 11/15/2017 Pap: Total hysterectomy at [facility] in 2002 Dental/Panorex: 01/26/21 FINDINGS: Multiple dental restorations are identified, and numerous teeth are absent. No acute mandibular fracture is identified. Both temporomandibular joints are intact. No periapical abscess is present. IMPRESSION: No evidence of periapical abscess. SW: 01/26/2021 Transplant Baggage Inspector: Jonna Collado LMSW Interviewees: Patient and her , [place] Clinical Social Work Impression: It is the impression of this psychiatric social worker supervisor that Richelle Espinoza has several positive factors for Kidney transplant candidacy from a psychosocial perspective. Patient appears to have appropriate knowledge of illness. Patient has sufficient insurance coverage and stable financial situation for post transplant needs. No concerns regarding substance abuse, legal issues, or mental health needs. Patient has adequate support system and appropriate discharge plan. Plan: color worker to provide supportive services as needed. Patient remains a reasonable candidate for transplant from a psychosocial perspective. Psychiatric Consult Recommended: No Transplant Baggage Inspector: RYAN Gonzalez Abdominal Transplant Baggage Inspector [phone] RD: 11/21/2019 via phone BMI= 27.4, overweight. Pt is considered to be an ok candidate for a Kidney Transplant from a Nutrition standpoint. Awaiting labs. Recommendations/Interventions: 1. Pt instructed to exercise (for the third year in a row) as a means to help pt prepare for a healthy surgery and outcome - will mail [facility] exercises. 2. 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 Abrams Dialysis Type and Start Date: 06/11/2017 Blood Type: O+ BMI: Short H/P summary: Pt is a 57 y.o. AA F with ESRD 2/2 HTN (dx in he mid 20s). Pt has not had a bx. She started dialysis 06/11/17 and is currently on PD. She has had a dewayne in the past. She still voids about 2 times pd and about 1/2 - 1 cup each time. Other PMX: Hyperparathyroidism, former smoker (about 1 ppd x 30 years, quit 10 years ago), G5,P4 x1 elective , x4 c-sections, denies drug use, occasional ETOH use Surgical: PD cath placed in 05/2017, partial hysterectomy (still has ovaries, completed at [facility] in 2002, d/t bleeding), x4 c-sections Social: Pt is to [place] and they have 4 children (3 daughters and 1 son). Her and her live together along with their grandchildren. She is currently on STD d/t her recent PD surgery and plans to go back to work eventually. 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 She is able to drive. Her post op support would be her daughter Dyana and . Her and both her daughters are interested LDs. Mom is and from a stroke. Pt does not know dad but knows he is . No significant family hx. Transplant surgery appt: Scheduled for 10/15/17 Nephrology: Scheduled for 10/15/2017 Consults: none PSC Notes: Not yet presented Evaluation Testing Date and Results: Labs: 10/04/2017 PTH: 129.7 A1c: 6.5 Glucose: 86 GFR: 5 Serologies: +hepBsAb, all others negative CMV Igg: Pos EBV Igg: Pos Albumin: 3.3 Tox Screen: all negative, Cotinine 4.6 PRA: Still pending Lipid panel: Elevated (will send labs to PCP) Echo: 10/04/2017 still needs to complete DSE: 10/04/2017 still needs to complete Cardiac Cath: N/A CXR: 10/02/2017 FINDINGS: The lungs are hyperinflated. There is mild linear atelectasis in the left lower lung. There is no focal consolidation, pleural effusion, or pneumothorax. The cardiac silhouette is normal. A calcified right mediastinal lymph node is visible. IMPRESSION: No acute pulmonary process. Pano: 10/04/2017 FINDINGS: Multiple dental restorations are identified, and numerous teeth are absent. No periapical abscess is present. Dental caries is seen within a left maxillary molar. Multiple metallic fragments project over the left side of the mouth. IMPRESSION No evidence of periapical abscess. CT a/p non-contrast: 10/04/2017 FINDINGS: Evaluation of visceral and vascular structures is limited due to lack of intravenous contrast administration. The aorta is normal in course and caliber. Mild atherosclerotic calcifications are noted in the aorta and its major branches including the common and external iliac arteries. Mild bilateral dependent atelectasis is present. Otherwise no focal consolidation is seen in the visible lung bases. Mild left lower lobe bronchiectasis likely represents sequela of chronic infection or aspiration. The heart size is normal without pericardial effusion. The liver appears normal for the noncontrast technique. Small perihepatic ascites is noted. The gallbladder is decompressed. The intrahepatic and extrahepatic bile ducts are nondilated. Other than a small calcified granuloma in the spleen, the spleen and pancreas appear normal for the noncontrast technique. There is mild thickening of the bilateral adrenal glands. The kidneys are mildly atrophic with evidence of vascular calcification in the renal sinus cyst. No renal, ureteral, or bladder calculi are visible. There is no evidence of hydronephrosis or hydroureter. The distal esophagus and stomach appear normal. The small bowel and large bowel are normal in caliber without evidence of wall thickening or obstruction. The appendix appears normal without appendicolith or surrounding inflammatory changes. No free air is identified within the abdomen. There is no abdominal lymphadenopathy. A peritoneal dialysis catheter is present with a small volume abdominopelvic ascites. The urinary bladder is nondistended. The uterus is absent/atrophic. There is no pelvic lymphadenopathy. Bone windows demonstrate no suspicious lytic or blastic lesions. The visible osseous structures are intact. Mild multilevel degenerative changes are noted in the spine. IMPRESSION: 1. Mild atherosclerotic calcification in the aorta and its major branches, including bilateral iliac arteries 2. Small volume abdominopelvic ascites likely related to peritoneal dialysis. 10/08/[address] Hutchinson, iliacs are ok, get Chest CT to evaluate LLL findings Renal US: Completed at [facility] on 06/09/2017 LE arterial doppler: 10/04/2017 10/08/[address] Hutchinson, will address pulses in clinic, disease maybe distal, iliacs on CT looked ok PPD: given at [facility] on 07/25/17 and was negative Colonoscopy: scheduled Mammo: Records completed Pap: Total hysterectomy Dental: panorex completed SW: 10/04/2017 Clinical Social Work Impression: It is the impression of this psychiatric social worker supervisor that Richelle Espinoza has several positive factors for Kidney transplant candidacy from a psychosocial perspective. Pt has a good understanding of her disease and motivation for kidney transplant. Pt appears to have adequate insurance and financial situation for post transplant needs. Pt has identified adequate support system and appropriate discharge plan. No concerns regarding substance abuse identified. Patient is currently on short-term disability leave. Patient has applied for Social Security Disability. Plan: color worker to provide supportive services as needed. No f/u indicated at this time.Patient appears to be a reasonable candidate for transplant from a psychosocial perspective. Post transplant arrangement forms are needed prior to being listed. Psychiatric Consult Recommended: No Transplant Baggage Inspector: Janee Gamble LMSW RD: 10/04/2017 Family History Medical History Relation Name Comments CVA Mother Hypertension Mother Relation Name Status Comments Father Mother (Age 61) Social History Tobacco Use Types Packs/Day Years Used Date Smoking Tobacco: Former Cigarettes 1 35 0 04/08/1973 - 04/08/2008 Smokeless Tobacco: Never Alcohol Use Standard Drinks/Week Comments Yes 0 (1 standard drink = 0.6 oz pur e alcohol) occasional use Comments No Sex and Gender Information Value Date Recorded Sex Assigned at Not on file Legal Sex Female 5:34 PM [employer] SAL[employer] Gender Identity Not on file Sexual Orientation Not on file Last Filed Vital Signs Vital Sign Reading Time Taken Comments Blood Pressure 165/103 04/05/2022 10:28 AM CDT Pulse 72 04/05/2022 10:28 AM CDT Temperature 36.4 C (97.6 F) 04/05/2022 10:28 AM CDT Respiratory Rate 18 02/09/2020 2:11 PM CDT Oxygen Saturation 98% 04/05/2022 10: 28 AM CDT Inhaled Oxygen Concentration - - Weight 70.7 kg (155 lb 12.8 oz) 022 10:28 AM CDT Height 157.5 cm (5' 2) 04/05/2022 10:2 8 AM CDT Body Mass Index 28.5 04/05/2022 10:28 AM CDT Plan of Treatment Health Maintenance Due Date Last Done Comments COLOGUARD (AGES 45-75) - COLON CA SCREENING 1961 COLON MONITORING 1961 COLONOSCOPY - COLON CA SCREENING 1961 CT COLONOGRAPHY - COLON CA SCREENING 1961 Colorectal Cancer Screening 1961 FIT - COLON CA SCREENING 1961 FLEX SIG - COLON CA SCREENING 1961 DTAP/TDAP/TD VACCINES (1 - Tdap) 1980 PAP SMEAR 1982 Cervical Cancer Screening 1991 PAP with HPV 1991 PNEUMOCOCCAL VACCINE 50+ (1 of 1 - PCV) 2011 ZOSTER VACCINE (1 of 2) 2011 MAMMOGRAM 05/20/2022 05/20/2020, 05/23/2019 SCREENING FOR DIABETES 01/27/2024 , 01/26/2021, 12/30/2019, Additional history exists DEPRESSION SCREENING 07/23/2024 COVID-19 VACCINE (1 - 2024- season) 2025 INFLUENZA VACCINE (#1) 2025 Respiratory Syncytial Virus (RSV) Vaccine Pt: or over 60 yrs (1 - 1-dose 75+ series) 2036 HEPATITIS C SCREENING Completed 01/26/2021 , 12/30/2019, 11/08/2018, Additional history exists HIV SCREENING Completed 01/26/2021, 03/2020, 11/08/2018, Additional history exists HEPATITIS B VACCINE Aged Out No longe r eligible based on patient's age to complete this topic HIB VACCINE Aged Out No longer eligi ble based on patient's age to complete this topic HPV VACCINE Aged Out No longer eligi ble based on patient's age to complete this topic MENINGOCOCCAL (Group B) VACCINE SHARED DECISION-MAKING Aged Out No longer eligible based on patient's age to complete this topic MENINGOCOCCAL GROUPS A/C/Y/W VACCINE Aged Out No longer eligible based on patient's age to complete this topic Procedures Procedure Name Priority Date/Time Associated Diagnosis Comments COMPREHENSIVE METABOLIC PANEL Routine 01/26/2021 1:05 PM CDT Pre-kidney transplant, listed HEPATITIS C ANTIBODY Routine 01/26/2021 1:05 PM CDT Pre-kidney transplant, listed HIV-1 HIV-2 ANTIBODY + HIV P24 AG PANEL Routine 01/26/2021 1:05 PM CDT Pre-transplant evaluation for kidney transplant MAMMO BILAT SCREENING Routine 05/20/2020 2:27 PM CDT Encounter for screening mammogram for malignant neoplasm of breast from Last 3 Months or Most Recently Relevant to Health Maintenance Results * HIV-1 HIV-2 ANTIBODY + HIV P24 AG PANEL (01/26/2021 1:05 PM CDT) Pathologist [facility] HIV Antigen/Antibod y 1 & 2 Non-reacti ve Non-react fan 01/26/2021 2:39 PM CDT [facility] Comment:Neither HIV-1 p24 An tigen nor HIV-1/HIV-2 Antibodies are detected. Blood BLOOD SPECIMEN / Unknown Lab Venipuncture / Unknown 01/26/2021 1:05 PM CDT 01/26/2021 1:38 PM CDT us Jon Galvez MD LAB - CHEMISTRY ORDERA BLES Final Result [facility] [address] [address], [facility] [phone] * (ABNORMAL) COMPREHENSIVE METABOLIC PANEL (01/26/2021 1:05 PM CDT) Pathologist [facility] BUN 51(H) 7 - 26 mg/dL 01/26/2021 2:16 PM CDT [facility] Creatinine 11.58(H) 0.56 - 0.96 mg/dL 01/26/2021 2:16 PM CDT [facility] Sodium 137 136 - 145 mmol/L 01/26/2021 2:16 PM CDT [facility] Potassium 3.7 3.5 - 4.5 mmol/L 01/26/2021 2:16 PM CDT [facility] Chloride 99 98 - 107 mmol/L 01/26/2021 2:16 PM [facility] CO2 25 22 - 29 mmol/L 01/26/2021 2:16 PM [facility] Glucose 94 70 - 115 mg/dL 01/26/2021 2:16 PM [facility] Calcium 9.2 8.4 - 10.2 mg/dL 01/26/2021 2:16 PM [facility] Protein Total 7.0 6.0 - 8.3 g/dL 01/26/2021 2:16 PM [facility] Albumin 3.4 3.4 - 5.0 g/dL 01/26/2021 2:16 PM [facility] Bilirubin Total 0.3 0.2 - 1.2 mg/dL 01/26/2021 2:16 PM [facility] Alkaline Phosphatase 44 40 - 150 U/L 01/26/2021 2:16 PM [facility] ALT 13 5 - 55 U/L 01/26/2021 2:16 PM [facility] AST 13 5 - 34 U/L 01/26/2021 2:16 PM [facility] Anion Gap 17 8 - 18 01/26/2021 2:16 PM [facility] BUN/Creatinine Ratio 4(L) 7 - 23 01/26/2021 2:16 PM [facility] Osmolality Calculated 297 270 - 300 mOsm/kg 01/26/2021 2:16 PM [facility] Albumin/Globulin Ratio 0.9(L) 1.1 - 2.3 01/26/2021 2:16 PM [facility] eGFR by CKD-EPI 3(L) >=90 mL/min/1. 73 m2 01/26/2021 2:16 PM [facility] Blood BLOOD SPECIMEN / Unknown Lab Venipuncture / Unknown 01/26/2021 1:05 PM CDT 01/26/2021 1:35 PM [facility] us Jon Galvez MD LAB - CHEMISTRY ORDERA BLES Final Result [facility] [address] [place] [address], [facility] [phone] * HEPATITIS C ANTIBODY (01/26/2021 1:05 PM CDT) Hepatitis C Antibody Non-react fan Non-reac tive 01/26/2021 2:39 PM CDT [facility] Comment:Hepatitis C Antibody screen indicates no serologic evidence of past or current infection with Hepatitis C Virus. Patients with unexplained liver disease who are immunocompromised or suspected of having acute Hepatitis C infection may benefit from Nucleic Acid Test (DESTINI) for Hepatitis C Viral RNA to confirm Hepatitis C status. Blood BLOOD SPECIMEN / Unknown Lab Venipuncture / Unknown 01/26/2021 1:05 PM CDT 01/26/2021 1:38 PM CDT Jon Galvez MD LAB - CHEMISTRY ORDERA BLES Final Result [facility] [address] [place] [address], [facility] [phone] * MAMMO SCREENING DIGITAL IMAGE BILAT (05/20/2020 2:27 PM CDT) Anatomical Region Laterality Modality Breast Bilateral Mammography 05/20/2020 2:48 PM CDT Impressions 05/20/2020 2:49 PM CDT IMPRESSION: No mammographic evidence of malignancy. ASSESSMENT: BI-RADS category 2, benign findings. RECOMMENDATION: Annual screening mammograms are recommended. This report was electronically signed by SAKSHI NATARAJAN M.D. on 05/20/2020 2:49 PM . Narrative 05/20/2020 2:49 PM CDT Bilateral screening mammogram Date: 05/20/2020 2:28 PM Comparison: Multiple priors, most recently 06/12/2019 and 02/14/2019 History: Screening mammogram. Technique: The breasts were imaged in multiple views using 3D tomosynthesis with reconstructed/synthetic images and CAD analysis. Findings: No suspicious mass, grouped microcalcification or architectural distortion is seen. Previously documented complicated cyst in the upper outer left breast has decreased in size and is now calcified. No significant change is noted since the prior examination. Breast parenchymal density: There are scattered areas of fibroglandular density. This examination was subjected to CAD analysis. Lance Arreguin MD MAMMO ORDERABLES Final Resul t from Last 3 Months or Most Recently Relevant to Health Maintenance Insurance MEDICARE [facility] MEDICARE [facility] Care Teams Weblogic Administrator Relationship Specialty Start Date End Date Aide Adair MD PCP - General 10/15/17
--- OUTSIDE RECORDS SUMMARY | 2025-06-12 12:09 | XMS_ITS | Encounter Summary ---
Author Organization [facility] Healthcare Address [address] [place] [address] Care Team Providers Care Neurosurgery Spine Physician Name Role Phone Stacey Abrams MD Unavailable [phone] Aide Adair MD Primary Care Prov ider Jordy Avila MD Unavailable [phone] Encounter Details Date Type Department Care Team (Late st Contact Info) Description 01/09/[address] [facility] [address] [place] [address] Aliya Evans, RACHNA Social History Tobacco Use Types Packs/Day Years Used Date Smoking Tobacco: Former Cigarettes 0.5 31 1 976 - 2007 Smokeless Tobacco: Never Alcohol Use Standard Drinks/Week Comments Yes 0 (1 standard drink = 0.6 oz pur e alcohol) 2 drinks per month OASIS D0700: Social Isolation Answer Da te Recorded Frequency of experiencing loneliness or isolatio n Never 01/11/2025 OASIS A1250: Transportation Answer Date Recorded Lack of Transportation (Medical) No 01/11/2025 Lack of Transportation (Non-Medical) No 01/11/2025 Patient Unable or Declines to Respond No 01/11/2025 OASIS B1300: Health Literacy Answer Augusto e Recorded Frequency of needing help to read materials from doctor or pharmacy Sometimes 01/11/2025 [facility] Utilities Answer Date Recorded In the past 12 months has th e electric, gas, oil, or water [employer] threatened to shut off services in your [...] 01/03/2025 How often do you attend chur or mandaeism services? More than 4 times per year 01/03/2025 Do you belong to any clubs o r organizations such as bahai groups, unions, fraternal or athletic groups, or school groups? No 01/03/2025 How often do you attend meet ings of the clubs or organizations you belong to? Never 01/03/2025 Are you , , di vorced, , never , or living with a partner? 01/03/2025 AUDIT-C Answer Date Recorded Q1: How often do you have a drink containing alc ohol? Monthly or less 01/02/2025 Q2: How many drinks containi ng alcohol do you have on a typical day when you are drinking? 1 or 2 01/02/2025 Q3: How often do you have si x or more drinks on one occasion? Never 01/02/2025 Overall Financial Resource Strain (CARDIA) Answe r [...] [facility] the [facility] were you [facility] or living in a fdc (including now)? No 01/03/2025 Personal Safety Answer Date Recorded Have you ever been in or are you currently in a harmful physical or emotional relationship or is someone making you feel afraid or unsafe? 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 Gender Identity Not on file Sexual Orientation Not on file documented as of this encounter Functional Status * Difference in Last Two Kenrick Scores Answer Date of Assessment Author 0 01/09/2025 9:00 AM Guadalupe Schmitz RN * Lev Fall Risk Question Answer Date of Assessment Author History of Falling 0 01/09/2025 9:00 AM Guadalupe Leslie RN Secondary Diagnosis 15 01/09/2025 9:00 AM Guadalupe Gloria RN Ambulatory Aids 15 01/09/2025 9:00 AM Guadalupe Perez RN Intravenous Therapy/Heparin/Saline Lock 20 01/09/2025 9:00 AM Guadalupe Schmitz RN Gait/Transferring 10 01/09/2025 9:00 AM Guadalupe Leslie RN Mental Status 0 01/09/2025 9:00 AM KATYT Guadalupe Andrews RN Ohara Fall Risk Score (Score >= 45 places fall precaution order) 60 01/09/2025 9:00 AM Guadalupe Zheng RN Prior Fall Event (Autopopulated from EMR) None found 01/09/2025 9:00 AM CDT Guadalupe Ortez RN * Kenrick Scale Question Answer Date of Assessment Author Sensory Perceptions 3 01/09/2025 9:00 AM CD T Guadalupe Oliva RN Moisture 4 01/09/2025 9:00 AM Guadalupe Christianson RN Activity 3 01/09/2025 9:00 AM KATYT Guadalupe Villarreal RN Mobility 3 01/09/2025 9:00 AM KATYT Guadalupe Villarreal RN Nutrition 3 01/09/2025 9:00 AM CDT Guadalupe Villarreal RN Friction and Shear 3 01/09/2025 9:00 AM Guadalupe Leslie RN Kenrick Scale Score 19 01/09/2025 9:00 AM KATYT Guadalupe Oliva RN * Question Answer Date of Assessment Author BP Location Right arm 01/09/2025 11:23 AM KATYT Nallely Newman BP Method Automatic 01/09/2025 11:23 AM CDT Nallely Newman MAP (mmHg) 87 01/09/2025 11:23 AM KATYT Nallely Newman * Fall Risk Interventions Question Answer Date of Assessment Author All Low Fall Interventions Applied Yes 01/09/2025 9:00 AM Guadalupe Zheng RN All Moderate Fall Interventions Applied Yes 01/09/2025 9:00 AM Guadalupe Zheng RN All High Fall Risk Interventions Applied Yes 01/09/2025 9:00 AM Guadalupe Zheng RN All High Risk Interventions EXCEPT: Bed alarm;Chair alarm 01/09/2025 9:00 AM Guadalupe Zheng RN Additional Interventions Applied Over-bed table on non-exit side;Exit bed on strong/preferred side 01/09/2025 9:00 AM Guadalupe Zheng RN Reason For Exception(s) pt does not atte mpt to exit bed wihtout staffing assistance 01/09/2025 9:00 AM Guadalupe Zheng RN * B.M.A.T. - Bedside Mobility Assessment Tool for Nurses Question Answer Date of Assessment Author Is patient able to participate in the BMAT? Yes 01/09/2025 9:00 AM Guadalupe Gimenez RN BMAT Level Level 3 - Yellow 01/09/2025 9:00 AM Guadalupe Palm RN Level 3 Equipment Use assistive device such as cane/walker 01/09/2025 9:00 AM Guadalupe Leslie RN * Pressure Injury Prevention Question Answer Date of Assessment Author Pressure Ulcer Prevention Interventions Keep skin clean and dry (Sensory Perception/Moisture);F loat Heels (Activity/Mobility);Us e pillows/wedge for positioning (Activity/Mobility);Pr ovide adequate nutrition/fluid intake (Nutrition) 01/09/2025 9:00 AM Guadalupe Zheng RN * Integumentary Question Answer Date of Assessment Author Skin Color Appropriate for ethnicity 01/09/2025 9:00 AM Guadalupe Zheng RN Skin Condition/Temp Warm;Dry 01/09/2025 9 :00 AM Guadalupe Zheng RN Skin Integrity Surgical incision 01/09/2025 9:0 0 AM Guadalupe Zheng RN Skin Turgor Non-tenting 01/09/2025 9:00 AM Guadalupe Zheng RN Integumentary Additional Assessments Yes-Kenrick 01/09/2025 9:00 AM CDT Guadalupe Lama RN Integumentary (WDL) X 01/09/2025 9 :00 AM Guadalupe Zheng RN Skin Location see LDAs 01/09/2025 9:00 AM KATYT Guadalupe Lama RN * Question Answer Date of Assessment Author BP Location Right arm 01/09/2025 11:23 AM KATYT Nallely Newman BP Method Automatic 01/09/2025 11:23 AM KATYT Nallely Newman * Fall Risk Interventions Question Answer Date of Assessment Author All Low Fall Interventions Applied Yes 01/09/2025 9:00 AM Guadalupe Zheng RN All Moderate Fall Interventions Applied Yes 01/09/2025 9:00 AM Guadalupe Zheng RN All High Fall Risk Interventions Applied Yes 01/09/2025 9:00 AM Guadalupe Zheng RN All High Risk Interventions EXCEPT: Bed alarm;Chair alarm 01/09/2025 9:00 AM Guadalupe Zheng RN Additional Interventions Applied Over-bed table on non-exit side;Exit bed on strong/preferred side 01/09/2025 9:00 AM Guadalupe Zheng RN Reason For Exception(s) pt does not atte mpt to exit bed wihtout staffing assistance 01/09/2025 9:00 AM Guadalupe Zheng RN * Hygiene Question Answer Date of Assessment Author Hygiene Level of Assistance Independent 01/09/2025 8:08 AM Pablo Bhakta Toileting: Level of assistance Independent 01/09/2025 8:08 AM Pablo Bhakta Perineal Care Suki Care 01/09/2025 8:08 AM Nallely Nj Bath Not bathed/showered 01/09/2025 8:08 AM Nallely Roldan documented as of this encounter Mental Status * Question Answer Entry Date Author Level of Consciousness Alert;Awake 9:00 AM CDT Guadalupe Oliva RN Orientation Oriented X4 (person, place, time, situation) 01/09/2025 9:00 AM KATYT Guadalupe Oliva RN Neuro (WDL) X 01/09/2025 9:00 AM KATYT Guadalupe Oliva RN documented in this encounter Plan of Treatment Not on file documented as of this encounter Visit Diagnoses Not on filedocumented in this encounter Care Teams Neurosurgery Spine Physician Relationship Specialty Start Date End Date Aide Adair MD PCP - General 09/17/20 Stacey Abrams MD Referring Physician Nephrology 10/05/19 Jordy Avila MD 2 [facility] [address] [address] Consulting Physician Vascular & Interven Rad 10/10/24 documented as of this encounter
--- OUTSIDE RECORDS SUMMARY | 2025-06-12 12:09 | XMS_ITS | Clinical Summary ---
Author Organization [facility] Address [address] [place] [id number] Care Team Providers Care Printing Roller Handler Name Role Phone Aide Jimenez MD Primary Care Provider Social History Tobacco Use Types Packs/Day Years Used Date Smoking Tobacco: Never Assessed Comments Unknown Sex and Gender Information Value Date Recorded Sex Assigned at Not on file Legal Sex Female 4:44 PM CDT Gender Identity Not on file Sexual Orientation Not on file Plan of Treatment Health Maintenance Due Date Last Done Comments Cervical Cancer Screening Pa p Smear (Age 30 to 64) Every 3 Years 1961 Colorectal Cancer Screening Colonoscopy (10 Years) 1961 Annual Physical 1964 DTaP, Tdap and Td Vaccines ( 1 - Tdap) 1980 Cervical Cancer Screening Pa p with HPV Testing (Age 30 to 64) Every 5 Years 1991 Cervical Cancer Screening with HPV 1991 Mammogram Screening 2001 Pneumococcal Vaccine: 50+ Ye ars (1 of 1 - PCV) 2011 Zoster Vaccines (1 of 2) 2011 COVID-19 Vaccine (2024-2 6 season) 2025 Influenza Adult (#1) 2025 RSV Immunization or 60+ Years (1 - 1-dose 75+ series) 2036 Hepatitis C Completed 10/27/2015 Hepatitis A Vaccines Aged Out No long er eligible based on patient's age to complete this topic Meningococcal B Vaccine Aged Out No l onger eligible based on patient's age to complete this topic Meningococcal Vaccine Aged Out No jazmin mary eligible based on patient's age to complete this topic RSV Immunizations Under 20 Months Aged Out No longer eligible based on patient's age to complete this topic Procedures Procedure Name Priority Date/Time Associated Diagnosis Comments HEPATITIS PANEL,ACUTE STAT 10/27/2015 7:18 PM CDT from Last 3 Months or Most Recently Relevant to Health Maintenance Results * HEPATITIS PANEL,ACUTE (10/27/2015 7:18 PM CDT) HAV IGM NON-REACTI VE NON-REACTI VE 10/28/2015 7:24 PM CDT [facility] Comment: TESTING [place] [address] HEPATITIS B SURFACE AG NON-REACTI VE NON-REACTI VE 10/28/2015 7:24 PM CDT [facility] Comment: TESTING PERFORMED AT [place] [id number] HEP B CORE IGM NON-REACTI VE NON-REACTI VE 10/28/2015 7:24 PM CDT [facility] Comment: TESTING PERFORMED AT [place] [id number] HEPATITIS C AB NON-REACTI VE NON-REACTI VE 10/28/2015 7:24 PM CDT [facility] Comment: TESTING [place] [address] 10/27/2015 7:18 PM CDT 10/27/2015 7:31 PM CDT us Generic Conversion Md [facility] Final R esult [facility] [address] [place], [place] [id number], [place] [phone] from Last 3 Months or Most Recently Relevant to Health Maintenance Care Teams Printing Roller Handler Relationship Specialty Start Date End Date Aide Jimenez MD [address] [place] [id number] PCP - General 10/27/15
[2025-06-12 12:14] LABS: INR 0.9; Prothrombin Time 12.8 Seconds (11.1-14.7)
[2025-06-12 12:15] LABS: Partial Thromboplastin Time 30.7 Seconds (22.3-36.8)
--- NOTE | 2025-06-12 13:05 | ED.GENADULT ---
HPI - General Adult General Chief complaint: Recheck/Abnormal Lab/Rx Stated complaint: hgb 6 Time Seen by Provider: 06/12/25 11:37 History of Present Illness HPI narrative: Patient is a 65-year-old female with history of end-stage renal disease who is undergoing peritoneal dialysis that presents ER with a low hemoglobin. Was drawn 2 days ago outpatient. At that time she had had an injection of Mircera. Her business support professional is Dr. Abrams. Patient denies any chest pain or shortness of breath. She does get some dizziness with standing up. She was told her hemoglobin level was 6. No dark black stools. No bright red stools. She often gets injections for anemia. She is also transfuse several months ago. Related Data Home Medications ?Medication ?Instructions ?Recorded ?Confirmed ?Last Taken ?Type acetaminophen 325 mg capsule 325 mg PO Q4H PRN pain 06/12/25 06/12/25 Unknown History aspirin 81 mg capsule 81 mg PO DAILY 06/12/25 06/12/25 Unknown History atorvastatin 20 mg tablet 20 mg PO QAM 06/12/25 06/12/25 Unknown History calcium carbonate (Maggie-[place] 1,500 mg PO BID 06/12/25 06/12/25 Unknown History Heartburn Chew) carvedilol 6.25 mg tablet 6.25 mg PO QAM 06/12/25 06/12/25 Unknown History cefdinir 300 mg capsule 300 mg PO Q12H PRN rash 06/12/25 06/12/25 Unknown History cholecalciferol (vitamin D3) 50 50 mcg PO DAILY 06/12/25 06/12/25 Unknown History mcg (2,000 unit) capsule clonidine HCl 0.1 mg PO Q4H PRN hypertensive 06/12/25 06/12/25 Unknown History emergency clopidogrel 75 mg tablet 75 mg PO DAILY 06/12/25 06/12/25 Unknown History diphenhydramine HCl 25 mg capsule 25 mg PO Q4H PRN itching 06/12/25 06/12/25 Unknown History (Aler-Cap) gabapentin 100 mg capsule 100 mg PO BID 06/12/25 06/12/25 Unknown History gentamicin sulfate (PF) 100 mg/10 100 mg intraperitoneal QAM PRN rash 06/12/25 06/12/25 Unknown History mL intravenous solution guaifenesin 100 mg/5 mL oral 100 mg PO ONCE PRN cough 06/12/25 06/12/25 Unknown History liquid (Expectorant) hydrocortisone acetate 25 mg 25 mg RECTAL HS PRN hemorrhoids 06/12/25 06/12/25 Unknown History rectal suppository (Anucort-HC) levothyroxine 112 mcg tablet 112 mcg PO QAM 06/12/25 06/12/25 Unknown History loperamide 2 mg capsule 2 mg PO Q6H PRN loose stool 06/12/25 06/12/25 Unknown History (Anti-Diarrheal (loperamide)) losartan 100 mg tablet 100 mg PO DAILY 06/12/25 06/12/25 Unknown History methocarbamol 500 mg tablet 500 mg PO TID 06/12/25 06/12/25 Unknown History nifedipine 90 mg tablet,extended 90 mg PO QAM 06/12/25 06/12/25 Unknown History release oxycodone 5 mg tablet 5 mg PO Q6H PRN pain 06/12/25 06/12/25 Unknown History potassium chloride 20 mEq 20 meq PO DAILY 06/12/25 06/12/25 Unknown History tablet,extended release (K-Tab) sertraline 25 mg tablet 25 mg PO QAM 06/12/25 06/12/25 Unknown History sevelamer carbonate 800 mg tablet 800 mg PO TID 06/12/25 06/12/25 Unknown History (Renvela) Allergies Allergy/AdvReac Type Severity Reaction Status Date / Time No Known Allergies Allergy Verified 06/12/25 10:51 Review of Systems Review of Systems: All systems reviewed & are unremarkable except as noted in HPI and below Constitutional: Constitutional: Reports no additional constitutional complaints Cardiovascular: Cardiovascular: Reports no additional cardiovascular complaints Respiratory: Respiratory: Reports no additional respiratory complaints Gastrointestinal: Gastrointestinal: Reports no additional gastrointestinal complaints Neurologic: Reports system reviewed and no additional complaints, except as documented PMFSH Social History Social History Years smoked: 20 Smoking status: Former smoker Tobacco type: cigarettes Smoking end date: 07/23/12 Alcohol intake: current Drinks per week: 1 Substance use: never Lack of Transportation: No Lack of Food: Never True Current Housing: I Have Housing Concerned About Future Housing: No Difficulty Paying Gas/Electric Bills: No Difficulty Paying for Meds: No Currently Unemployed: No Education: Associate Degree Difficulty w/ Childcare or Family Care: No Spiritual care concerns: No Exam Narrative: GENERAL: Well-appearing, well-nourished, and in no acute distress. HEAD: Normocephalic, atraumatic. ENT: Mucous membranes moist. CHEST: Clear to auscultation. No respiratory distress. HEART: Regular rate and rhythm. Normal peripheral pulses. ABDOMEN: Soft, nontender, nondistended. EXTREMITIES: Normal range of motion. No edema. SKIN: Warm, dry, no rash. NEURO: Alert and oriented x3. PSYCH: Normal mood and affect. Course Course Emergency Course: Admit to the hospitalist service. The 2 units to transfuse. Will have Nephrology consulted to start peritoneal dialysis this evening. Vital Signs Vital signs: Vital Signs Temperature 98.6 F 06/12/25 10:52 Pulse Rate 60 06/12/25 10:52 Respiratory Rate 18 06/12/25 10:52 Blood Pressure 86/37 L 06/12/25 10:52 Pulse Oximetry 100 06/12/25 10:52 Oxygen Delivery Room Air 06/12/25 10:52 Temperature 98.3 F 06/12/25 17:02 Pulse Rate 68 06/12/25 17:02 Respiratory Rate 18 06/12/25 17:02 Blood Pressure 132/68 06/12/25 17:02 Pulse Oximetry 100 06/12/25 17:02 Oxygen Delivery Room Air 06/12/25 14:58 Medical Decision Making Differential Diagnosis Differential Diagnosis: Anemia of chronic disease, GI hemorrhage, electrolyte derangement, SBP Vital Signs Vital Signs: Vital Signs Temperature 98.6 F 06/12/25 10:52 Pulse Rate 60 06/12/25 10:52 Respiratory Rate 18 06/12/25 10:52 Blood Pressure 86/37 L 06/12/25 10:52 Pulse Oximetry 100 06/12/25 10:52 Oxygen Delivery Room Air 06/12/25 10:52 Temperature 98.3 F 06/12/25 17:02 Pulse Rate 68 06/12/25 17:02 Respiratory Rate 18 06/12/25 17:02 Blood Pressure 132/68 06/12/25 17:02 Pulse Oximetry 100 06/12/25 17:02 Oxygen Delivery Room Air 06/12/25 14:58 Lab Data Lab results reviewed: Yes I reviewed the patient's lab results. 06/12/25 11:45 11/21/25 12:58 Labs: Lab Results 06/12/25 06/12/25 Range/Units 11:45 12:58 WBC 6.2 (4.5-10.0) K/mm3 RBC 1.70 L (4.2-5.4) M/mm3 Hgb 5.3 L* (12.0-15.0) g/dL Hct 16.7 L* (37.0-47.0) % MCV 98.2 (80-100) fl MCH 31.2 (26-34) pg MCHC 31.7 L (32-36) g/dl RDW 15.4 H (11.5-14.5) % Plt Count 288 (150-375) k/mm3 MPV 9.2 (7.4-10.4) fl Immature Gran % (Auto) 0.6 H (0-0.5) % Neut % (Auto) 61.4 (45.5-73.1) % Lymph % (Auto) 22.7 (18.3-44.2) % Haralson % (Auto) 11.1 H (2.6-8.5) % Eos % (Auto) 3.7 (0-4.4) % Baso % (Auto) 0.5 (0.2-1.2) % Lymph # (Auto) 1.41 (0.9-3.2) K/mm3 Haralson # (Auto) 0.7 H (0.1-0.6) K/mm3 Eos # (Auto) 0.2 (0-0.3) K/mm3 Baso # (Auto) 0.0 (0.0-0.1) K/mm3 Abs Immat Gran (auto) 0.04 H (0.00-0.031) K/mm3 Absolute Neuts (auto) 3.8 (1.3-6.7) K/mm3 Absolute Nucleated RBC 0.000 (0.0-0.012) K/mm3 Band Neutrophils % Not Reportable Nucleated RBC % 0.0 (0.0-0.2) % Platelet Estimate Adequate (Adequate) Hypochromasia 2+ Anisocytosis Occasional Tear Drop Cells Occasional Ovalocytes 1+ Schistocytes Occasional PT 12.8 (11.1-14.7) Seconds INR 0.9 APTT 30.7 (22.3-36.8) Seconds Sodium 134 L (137-145) mmol/L Potassium 3.0 L (3.4-5.0) mmol/L Chloride 94 L (98-107) mmol/L Carbon Dioxide 32 H (22-30) mmol/L Anion Gap 8 (4-12) mmol/L BUN 38 H (7-17) mg/dL Creatinine 12.52 H (0.7-1.0) mg/dL Estim Creat Clear Calc 4 ml/min Estimated GFR 3 L (59 - ) Glucose 99 (65-110) mg/dL Calcium 7.1 L (8.4-10.2) mg/dL Total Bilirubin 0.2 (0.2-1.3) mg/dL AST 21 (14-36) U/L ALT 18 (6-35) U/L Alkaline Phosphatase 64 (38-126) U/L Total Protein 5.4 L (6.3-8.2) g/dL Albumin 3.1 L (3.5-5.1) g/dL Blood Type O Positive Antibody Screen Negative Crossmatch See Detail Discharge Plan Discharge Clinical Impression: Anemia Patient Disposition: Still a Patient Condition: Stable
[2025-06-12 13:20] LABS: Anisocytosis Occasional; Hypochromasia 2+
[2025-06-12 13:21] LABS: Ovalocytes 1+; Schistocytes Occasional; Tear Drop Cells Occasional
[2025-06-12 13:33] LABS: Alanine Aminotransferase 18 U/L (6-35); Albumin Level 3.1 g/dL (3.5-5.1); Alkaline Phosphatase 64 U/L (38-126); Anion Gap 8 mmol/L (4-12); Aspartate Amino Transferase 21 U/L (14-36); Bilirubin,Total 0.2 mg/dL (0.2-1.3); Blood Urea Nitrogen 38 mg/dL (7-17); Calcium 7.1 mg/dL (8.4-10.2); Carbon Dioxide 32 mmol/L (22-30); Chloride 94 mmol/L (98-107); Estimated CRCL calculation 4 ml/min; Estimated Glomerular Filt Rate 3; Glucose 99 mg/dL (65-110); Potassium 3.0 mmol/L (3.4-5.0); Sodium 134 mmol/L (137-145); Total Protein 5.4 g/dL (6.3-8.2)
--- NOTE | 2025-06-12 13:39 | WPCEDHO ---
ED Hand Off Checklist All vitals saved: yes IV Site documented:yes All med administrations documented:yes Triage Note Triage Note Pt to ED via POV with c/o blood 06/12/25 10:52 work drawn on Saturday 06/09, with hemoglobin at 6. Pt has P.D. cath for dialysis, ore trimmer is at [facility]. Pt had blood transfusion in November 2024 Allergies No Known Allergies Allergy (Verified 06/12/25 10:51) Interventions/Assessments General Assessment Start: 06/12/25 10:27 Freq: Status: Active Protocol: Document 06/12/25 11:03 MLI (Rec: 06/12/25 11:05 MLI [id number]) GA Gastrointestinal Assessment Gastrointestinal No Assessment WNL Gastrointestinal Blood in Stool Symptoms All Quadrants Bowel Sounds Active Pattern Normal Flatus Present Stool Bright Red Characterisitics Gastrointestinal Pt states occasionally has BRRB Additional Comments IV / Saline Lock, Insert Start: 06/12/25 11:30 Freq: STAT Status: Active Protocol: Document 06/12/25 11:47 MLI (Rec: 06/12/25 11:47 MLI [id number]) IV Assessment Peripheral Access Right Forearm IV Catheter Access Initiated IV Insertion Date 06/12/25 IV Insertion Time 11:47 Catheter Gauge 20 IV Insertion 2 Attempts Ultrasound Used for No Placement IV Site Assessment WNL IV Care and WNL Maintenance Last Vital Signs Temperature 98.6 F 06/12/25 10:52 Pulse Rate 65 06/12/25 13:31 Respiratory Rate 17 06/12/25 13:31 Pulse Oximetry 98 06/12/25 13:31 Blood Pressure 91/53 L 06/12/25 13:31 Blood Pressure Mean 65 06/12/25 13:31 Blood Pressure Position Standing 06/12/25 13:29 Oxygen Delivery Room Air 06/12/25 10:52 Weight 65.8 kg 06/12/25 11:05 Last Result - Abnormals Only RBC 1.70 M/mm3 (4.2-5.4) L 06/12/25 11:45 Hgb 5.3 g/dL (12.0-15.0) L* 06/12/25 11:45 Hct 16.7 % (37.0-47.0) L* 06/12/25 11:45 MCHC 31.7 g/dl (32-36) L 06/12/25 11:45 RDW 15.4 % (11.5-14.5) H 06/12/25 11:45 Immature Gran % (Auto) 0.6 % (0-0.5) H 06/12/25 11:45 [place]eman % (Auto) 11.1 % (2.6-8.5) H 06/12/25 11:45 [place]eman # (Auto) 0.7 K/mm3 (0.1-0.6) H 06/12/25 11:45 Abs Immat Gran (auto) 0.04 K/mm3 (0.00-0.031) H 06/12/25 11:45 Sodium 134 mmol/L (137-145) L 06/12/25 12:58 Potassium 3.0 mmol/L (3.4-5.0) L 06/12/25 12:58 Chloride 94 mmol/L (98-107) L 06/12/25 12:58 Carbon Dioxide 32 mmol/L (22-30) H 06/12/25 12:58 BUN 38 mg/dL (7-17) H 06/12/25 12:58 Creatinine 12.52 mg/dL (0.7-1.0) H 06/12/25 12:58 Estimated GFR 3 (59-) L 06/12/25 12:58 Calcium 7.1 mg/dL (8.4-10.2) L 06/12/25 12:58 Total Protein 5.4 g/dL (6.3-8.2) L 06/12/25 12:58 Albumin 3.1 g/dL (3.5-5.1) L 06/12/25 12:58 Crossmatch See Detail 06/12/25 11:45 Most Recent Suicide Severity Rating Suicide Severity Rating NO RISK INDICATED 06/12/25 10:52
--- NOTE | 2025-06-12 14:10 | PM.CNNEP ---
Assessment and Plan Assessment and plan (1) End stage renal disease: Code(s): N18.6 - End stage renal disease Status: Chronic Assessment and Plan: continue nightly CCPD treatments follow electrolytes, volume status, and clearance primary dolly pusher = Dr. Stacey Abrams (2) Anemia: Code(s): D64.9 - Anemia, unspecified Status: Acute Assessment and Plan: quite severe by outpatient and admission labs check iron studies high dose PERLITA/Epogen PRBC transfusion per protocol r/o GI loss follow trend of H/H (3) Hypokalemia: Code(s): E87.6 - Hypokalemia Status: Acute Assessment and Plan: chronic issue on oral potassium supplements replete as needed (4) Hypertension: Qualifiers: Hypertension type: primary hypertension Qualified Code(s): I10 - Essential (primary) hypertension Code(s): I10 - Essential (primary) hypertension Status: Chronic Assessment and Plan: soft BPs noted on admissin however, given known history of PAD/PVD, question accuracy resume BP medications with parameters follow trend of hemodynamics I will continue to follow the patient with you while ahe remains hospitalized and make further recommendations as deemed necessary. Thank you for allowing me to participate in the care of this patient. History of Present Illness Reason for Consult Consult date: 06/12/25 Reason for consult: end stage renal disease Chief Complaint Chief complaint: Anemia History of Present Illness Narrative: The patient is a 65-year-old female with a past medical history as outlined who presented to [facility] Emergency room due to abnormal labs, specifically, severe anemia. The patient outpatient labs done approximately 2 days ago at her outpatient dialysis clinic. These labs show that her hemoglobin had dropped to 6.0. During that office visit, she did receive a dose Mircera but given this significant change/ drop in her hemoglobin, she was directed at the best of her primary dolly pusher to come to the emergency room for further assessment. On further questioning, she denies any symptoms of shortness of breath or chest pain but does admit that she is a bit dizzy when she stands up suddenly. She denies any melena, hematochezia, hemoptysis or hematuria Although she does report some blood in her stools whenever she wipes secondary to a known history of hemorrhoids. Workup and evaluation emergency room demonstrated the patient be slightly hypotensive in the 80s to 90 systolic otherwise afebrile and in no distress. Routine blood test demonstrated hemoglobin of 5.3, hematocrit of 16.7 and a chemistry panel consistent with her known history of end-stage renal disease with a potassium level of 3.0. She was given a small IV fluid bolus which improved her blood pressure significantly and she was typed and crossed for packed red blood cell transfusion. She was subsequently admitted to the hospital further evaluation and therapy. Renal consultation was requested due to her end-stage renal disease. The patient normally does peritoneal dialysis at home under the care of Dr. Stacey Abrams through to be a [facility]. Patient has been on renal replacement therapy / dialysis since May of 2017. She was initially started on incenter hemodialysis but then subsequently transition to home peritoneal dialysis. From a dialysis perspective, she reports that she has been doing reasonably well. She has had some significant issues and problems with wounds and vascular disease requiring operative intervention most recently at [facility]. Currently, at the time my evaluation she appears to be in no acute distress. Review of Systems Review of Systems: As per HPI. [facility] Past Medical History Medical History (Updated 06/13/25 @ 08:49 by Ric Lund MD) Depression Hemorrhoids Hypothyroidism Hyperlipidemia End stage renal disease Anemia Hypertension Social History Social History Years smoked: 20 Smoking status: Former smoker Tobacco type: cigarettes Smoking end date: 07/23/12 Alcohol intake: current Drinks per week: 1 Substance use: never Lack of Transportation: No Lack of Food: Never True Current Housing: I Have Housing Concerned About Future Housing: No Difficulty Paying Gas/Electric Bills: No Difficulty Paying for Meds: No Currently Unemployed: No Education: Associate Degree Difficulty w/ Childcare or Family Care: No Spiritual care concerns: No Meds Home Medications and Allergies Home Medications ?Medication ?Instructions ?Recorded ?Confirmed ?Type acetaminophen 325 mg capsule 325 mg PO Q4H PRN pain 06/12/25 06/12/25 History aspirin 81 mg capsule 81 mg PO DAILY 06/12/25 06/12/25 History atorvastatin 20 mg tablet 20 mg PO QAM 06/12/25 06/12/25 History calcium carbonate (Maggie-[place] 1,500 mg PO BID 06/12/25 06/12/25 History Heartburn Chew) carvedilol 6.25 mg tablet 6.25 mg PO QAM 06/12/25 06/12/25 History cefdinir 300 mg capsule 300 mg PO Q12H PRN rash 06/12/25 06/12/25 History cholecalciferol (vitamin D3) 50 50 mcg PO DAILY 06/12/25 06/12/25 History mcg (2,000 unit) capsule clonidine HCl 0.1 mg PO Q4H PRN hypertensive 06/12/25 06/12/25 History emergency clopidogrel 75 mg tablet 75 mg PO DAILY 06/12/25 06/12/25 History diphenhydramine HCl 25 mg capsule 25 mg PO Q4H PRN itching 06/12/25 06/12/25 History (Aler-Cap) gabapentin 100 mg capsule 100 mg PO BID 06/12/25 06/12/25 History gentamicin sulfate (PF) 100 mg/10 100 mg intraperitoneal QAM PRN rash 06/12/25 06/12/25 History mL intravenous solution guaifenesin 100 mg/5 mL oral 100 mg PO ONCE PRN cough 06/12/25 06/12/25 History liquid (Expectorant) hydrocortisone acetate 25 mg 25 mg RECTAL HS PRN hemorrhoids 06/12/25 06/12/25 History rectal suppository (Anucort-HC) levothyroxine 112 mcg tablet 112 mcg PO QAM 06/12/25 06/12/25 History loperamide 2 mg capsule 2 mg PO Q6H PRN loose stool 06/12/25 06/12/25 History (Anti-Diarrheal (loperamide)) losartan 100 mg tablet 100 mg PO DAILY 06/12/25 06/12/25 History methocarbamol 500 mg tablet 500 mg PO TID 06/12/25 06/12/25 History nifedipine 90 mg tablet,extended 90 mg PO QAM 06/12/25 06/12/25 History release oxycodone 5 mg tablet 5 mg PO Q6H PRN pain 06/12/25 06/12/25 History potassium chloride 20 mEq 20 meq PO DAILY 06/12/25 06/12/25 History tablet,extended release (K-Tab) sertraline 25 mg tablet 25 mg PO QAM 06/12/25 06/12/25 History sevelamer carbonate 800 mg tablet 800 mg PO TID 06/12/25 06/12/25 History (Renvela) Allergies Allergy/AdvReac Type Severity Reaction Status Date / Time No Known Allergies Allergy Verified 06/12/25 10:51 Vital Signs Vital Signs Temp Pulse Resp BP Pulse Ox O2 Del Method 06/12/25 14:00 98.0 F 68 16 106/63 100 06/12/25 13:31 65 17 91/53 L 98 06/12/25 13:29 70 91/53 L 06/12/25 13:27 68 98/61 L 06/12/25 13:26 64 103/61 06/12/25 11:05 62 14 103/69 100 06/12/25 10:52 98.6 F 60 18 86/37 L 100 Room Air Exam Narrative: GENERAL APPEARANCE: well developed well nourished female in no acute distress HEENT: normocephalic, atraumatic, normal conjunctiva and sclera, nares patient NECK: no lymphadenopathy, thyromegaly, or JVD MOUTH: normal lips, teeth, and gums CARDIOVASCULAR: RRR, normal S1 and S2, no rub RESPIRATORY: clear to auscultation bilaterally ABDOMEN: soft, nontender, nondistended, positive bowel sounds present EXTREMITIES: no evidence of cyanosis, clubbing, or edema NEUROLOGICAL: alert and oriented x 3; CN II - XII intact bilaterally; no focal deficits noted Results Lab Results 06/13/25 05:38 06/13/25 05:38 Lab results: Most recent lab results Calcium 7.1 mg/dL (8.4-10.2) L 06/12/25 12:58
[2025-06-12] MEDS: SODIUM CHLORIDE 0.9% IV 250 ML 30 ML IV CONT (14:15)
--- NOTE | 2025-06-12 14:41 | ADMGEN ---
This patient, Roseanna Espinoza, was admitted to [facility] Surg Room 303-01. Patient/family oriented to hospital policies and general routines including ID bracelet, bed and alarms, visiting hours, pain management, procedures, bathroom and other care routines, personal items, smoking policy, room service/diet, and visiting hours. Information on how to activate the Rapid Response Team has been discussed. Patient/Family are encouraged to report perceived risks to care and to ask questions if they do not understand what they are told or what they should do.
--- NOTE | 2025-06-12 15:16 | PC.NURSE ---
Patient came up from ER around 1430 with no blood hanging. Blood was ordered and ready at 1205. RN started blood as soon as possible when receiving patient.
--- NOTE | 2025-06-12 15:17 | PC.NURSE ---
RN called Marvin to receive medication list.
--- NOTE | 2025-06-12 15:18 | PC.NURSE ---
During assessment patient stated I was supposed to have two stents placed in November, but something got fucked up and I now have to use a walker and have fucked up legs. RN asked if she received the stents and she did say she did. RN does not know the extent of the cardiac history, but patient does have one. Patient and patient SO does not know much about her medications or medical history.
--- NOTE | 2025-06-12 15:38 | PM.IMHP ---
H&P: HPI History of Present Illness Date/Time: 06/12/25 15:38 Chief Complaint: Abnormal lab Narrative: 65-year-old female with a past medical history of hypertension, ESRD on PD, anemia of chronic disease, hemorrhoids, Hyperlipidemia presents to the ED on 06/12/2025 at the direction of her timing machine operator office. She had labs drawn 2 days ago, when she had her injection of Mircera, which revealed her hemoglobin was 6. Patient denies chest pain or shortness of breath. She does states she gets a little dizzy when she stands. Patient has not noticed dark stools. She does at times have blood in her stool due to her hemorrhoids. Patient sees timing machine operator Dr. Abrams. Initial vital signs 86/37, HR 60, respirations 18, afebrile and 100% on room air Labs reveal RBC 1.70, hemoglobin 5.3, hematocrit 16.7. Sodium 134, potassium 3 point, chloride 94, carbon dioxide 32, BUN 38, creatinine 12.52 Review of Systems Review of Systems: All systems reviewed & are unremarkable except as noted in HPI and below PMFSH Past Medical History Medical History (Updated 06/13/25 @ 01:38 by Charlotte Macedo, DIANNE) Depression Hemorrhoids Hypothyroidism Hyperlipidemia Hypertension End stage renal disease Anemia Social History Social History Years smoked: 20 Smoking status: Former smoker Tobacco type: cigarettes Smoking end date: 07/23/12 Alcohol intake: current Drinks per week: 1 Substance use: never Lack of Transportation: No Lack of Food: Never True Current Housing: I Have Housing Concerned About Future Housing: No Difficulty Paying Gas/Electric Bills: No Difficulty Paying for Meds: No Currently Unemployed: No Education: Associate Degree Difficulty w/ Childcare or Family Care: No Spiritual care concerns: No Meds Home Medications and Allergies Home Medications ?Medication ?Instructions ?Recorded ?Confirmed ?Type acetaminophen 325 mg capsule 325 mg PO Q4H PRN pain 06/12/25 06/12/25 History aspirin 81 mg capsule 81 mg PO DAILY 06/12/25 06/12/25 History atorvastatin 20 mg tablet 20 mg PO QAM 06/12/25 06/12/25 History calcium carbonate (Maggie-[place] 1,500 mg PO BID 06/12/25 06/12/25 History Heartburn Chew) carvedilol 6.25 mg tablet 6.25 mg PO QAM 06/12/25 06/12/25 History cefdinir 300 mg capsule 300 mg PO Q12H PRN rash 06/12/25 06/12/25 History cholecalciferol (vitamin D3) 50 50 mcg PO DAILY 06/12/25 06/12/25 History mcg (2,000 unit) capsule clonidine HCl 0.1 mg PO Q4H PRN hypertensive 06/12/25 06/12/25 History emergency clopidogrel 75 mg tablet 75 mg PO DAILY 06/12/25 06/12/25 History diphenhydramine HCl 25 mg capsule 25 mg PO Q4H PRN itching 06/12/25 06/12/25 History (Aler-Cap) gabapentin 100 mg capsule 100 mg PO BID 06/12/25 06/12/25 History gentamicin sulfate (PF) 100 mg/10 100 mg intraperitoneal QAM PRN rash 06/12/25 06/12/25 History mL intravenous solution guaifenesin 100 mg/5 mL oral 100 mg PO ONCE PRN cough 06/12/25 06/12/25 History liquid (Expectorant) hydrocortisone acetate 25 mg 25 mg RECTAL HS PRN hemorrhoids 06/12/25 06/12/25 History rectal suppository (Anucort-HC) levothyroxine 112 mcg tablet 112 mcg PO QAM 06/12/25 06/12/25 History loperamide 2 mg capsule 2 mg PO Q6H PRN loose stool 06/12/25 06/12/25 History (Anti-Diarrheal (loperamide)) losartan 100 mg tablet 100 mg PO DAILY 06/12/25 06/12/25 History methocarbamol 500 mg tablet 500 mg PO TID 06/12/25 06/12/25 History nifedipine 90 mg tablet,extended 90 mg PO QAM 06/12/25 06/12/25 History release oxycodone 5 mg tablet 5 mg PO Q6H PRN pain 06/12/25 06/12/25 History potassium chloride 20 mEq 20 meq PO DAILY 06/12/25 06/12/25 History tablet,extended release (K-Tab) sertraline 25 mg tablet 25 mg PO QAM 06/12/25 06/12/25 History sevelamer carbonate 800 mg tablet 800 mg PO TID 11/21/25 11/21/25 History (Renvela) Allergies Allergy/AdvReac Type Severity Reaction Status Date / Time No Known Allergies Allergy Verified 06/12/25 10:51 Vital Signs Vital Signs - 24 hr 06/12/25 10:52 06/12/25 11:05 06/12/25 13:26 Temperature 98.6 F Pulse Rate 60 62 64 Respiratory Rate 18 14 Blood Pressure 86/37 L 103/69 103/61 Pulse Oximetry 100 100 Oxygen Delivery Room Air 06/12/25 13:27 06/12/25 13:29 06/12/25 13:31 Temperature Pulse Rate 68 70 65 Respiratory Rate 17 Blood Pressure 98/61 L 91/53 L 91/53 L Pulse Oximetry 98 Oxygen Delivery 06/12/25 14:00 06/12/25 14:39 06/12/25 14:55 Temperature 98.0 F 97.8 F 97.7 F Pulse Rate 68 87 68 Respiratory Rate 16 16 18 Blood Pressure 106/63 116/62 112/71 Pulse Oximetry 100 95 100 Oxygen Delivery 06/12/25 14:58 Temperature Pulse Rate Respiratory Rate Blood Pressure Pulse Oximetry Oxygen Delivery Room Air Exam Narrative: GENERAL: non-toxic appearing, in no acute distress. HEAD: Normocephalic, atraumatic. EYES: PERRLA. Conjunctivae clear. NOSE: Normal no drainage. THROAT: Pharynx clear, no exudate. NECK: Trachea midline. No adenopathy, no masses. RESPIRATORY: Airway patent, respirations nonlabored. CTA. CARDIOVASCULAR: Regular rate and rhythm. BREASTS: Defer GASTROINTESTINAL: Abdomen is soft and nontender. No organomegaly. Bowel sounds normal in all quadrants. PD cath in place GENITOURINARY: Defer MUSCULOSKELETAL: Moves all extremities. No gross deformities. SKIN: Warm, dry, normal color. NEURO: A&O X4. Speech clear PSYCHIATRIC: Normal interaction H&P: Results Labs Labs: Short CBC 06/12/25 Range/Units 11:45 WBC 6.2 (4.5-10.0) K/mm3 Hgb 5.3 L* (12.0-15.0) g/dL Hct 16.7 L* (37.0-47.0) % Plt Count 288 (150-375) k/mm3 BMP 06/12/25 12:58 Sodium 134 L Potassium 3.0 L Chloride 94 L Carbon Dioxide 32 H BUN 38 H Creatinine 12.52 H Glucose 99 Calcium 7.1 L Liver Function 06/12/25 Range/Units 12:58 Total Bilirubin 0.2 (0.2-1.3) mg/dL AST 21 (14-36) U/L ALT 18 (6-35) U/L Alkaline Phosphatase 64 (38-126) U/L Albumin 3.1 L (3.5-5.1) g/dL Assessment and Plan Assessment and plan (1) Anemia: Qualifiers: Anemia type: due to chronic kidney disease Chronic kidney disease stage: on chronic dialysis Qualified Code(s): N18.6 - End stage renal disease; D63.1 - Anemia in chronic kidney disease; Z99.2 - Dependence on renal dialysis Code(s): D64.9 - Anemia, unspecified Status: Acute Assessment and Plan: Acute on chronic anemia. hemoglobin 5.3 hematocrit 16.7 on presentation. Patient states she gets monthly labs through her timing machine operator office. Started receiving Mircera injections monthly earlier this year. She states she has never been told to present to the ED due to her results before. -2 unit packed red blood cells--> post transfusion hemoglobin 7.6 and hematocrit 23.0 -trend H&H -no signs of acute bleeding (2) End stage renal disease: Code(s): N18.6 - End stage renal disease Status: Chronic Assessment and Plan: Patient has been on PD dialysis for ?years.? - Consult Nephrology for PD management -continue home Renvela TID - Renal diet, renal dose meds (3) Hypertension: Qualifiers: Hypertension type: primary hypertension Qualified Code(s): I10 - Essential (primary) hypertension Code(s): I10 - Essential (primary) hypertension Status: Chronic Assessment and Plan: Continue losartan, nifedipine (4) Hyperlipidemia: Code(s): E78.5 - Hyperlipidemia, unspecified Status: Chronic Assessment and Plan: Continue atorvastatin (5) Depression: Code(s): F32.A - Depression, unspecified Status: Chronic Assessment and Plan: Continue sertraline (6) Hypothyroidism: Qualifiers: Hypothyroidism type: unspecified Qualified Code(s): E03.9 - Hypothyroidism, unspecified Code(s): E03.9 - Hypothyroidism, unspecified Status: Chronic Assessment and Plan: Continue levothyroxine Plan Diet: Renal GI prophylaxis: NA DVT prophylaxis: SCDs lines/drains: PIV Fluids: NA Code status: Full Hospitalist MIPS Advance Care Plan I have confirmed that the patient's Advanced Care Plan is present, code status is documented, or surrogate decision maker is listed in patient medical record.: Yes Medication Reconciliation I have utilized all available resources to obtain, update and review the patients current medications (includes all prescriptions, OTC, herbals, cannabis, and nutritional supplements).: Yes
--- NOTE | 2025-06-12 17:05 | PC.NURSE ---
RN put order in for repeat H&H timed for 2 hours after second bag of blood.
[2025-06-12 20:00] LABS: Hematocrit 23.0 % (37.0-47.0); Hemoglobin 7.6 g/dL (12.0-15.0)
[2025-06-12 20:10] LABS: Iron 128 ug/dL (37-170)
[2025-06-12 20:20] LABS: Percent Iron Saturation 58 % (20-50)
[2025-06-12 20:51] LABS: Ferritin 364.00 ng/mL (11.1-264)
[2025-06-12 21:17] LABS: Vitamin B12 903.0 pg/mL (239-931)
[2025-06-13 05:22] VITALS: BP 150/70; PULSE 66; RESP 17; TEMP 36.7; O2SAT 100
[2025-06-13 06:01] LABS: Hematocrit 22.2 % (37.0-47.0); Hemoglobin 7.4 g/dL (12.0-15.0); Immature Granulocyte Percent A 0.5 % (0-0.5); Lymphocytes Absolute Auto 1.50 K/mm3 (0.9-3.2); Mean Corpuscular HGB Conc 33.3 g/dl (32-36); Mean Corpuscular Hemoglobin 30.8 pg (26-34); Mean Corpuscular Volume 92.5 fl (80-100); Nucleated Red Blood Cells Absolute Auto 0.000 K/mm3 (0.0-0.012); Nucleated Red Blood Cells Perc 0.0 % (0.0-0.2); Platelet Count Result 226 k/mm3 (150-375); Red Blood Count 2.40 M/mm3 (4.2-5.4); White Blood Count 5.5 K/mm3 (4.5-10.0)
[2025-06-13 06:30] LABS: Alanine Aminotransferase 15 U/L (6-35); Albumin Level 2.7 g/dL (3.5-5.1); Alkaline Phosphatase 54 U/L (38-126); Anion Gap 8 mmol/L (4-12); Aspartate Amino Transferase 20 U/L (14-36); Bilirubin,Total 0.3 mg/dL (0.2-1.3); Blood Urea Nitrogen 34 mg/dL (7-17); Calcium 7.0 mg/dL (8.4-10.2); Carbon Dioxide 27 mmol/L (22-30); Chloride 97 mmol/L (98-107); Estimated CRCL calculation 3 ml/min; Estimated Glomerular Filt Rate 3; Glucose 90 mg/dL (65-110); Potassium 2.7 mmol/L (3.4-5.0); Sodium 132 mmol/L (137-145); Total Protein 5.0 g/dL (6.3-8.2)
[2025-06-13] MEDS: KCL 20 MEQ/SW 100 ML 100 ML 50 MEQ IVPB (06:50)
[2025-06-13] MEDS: LEVOTHYROXINE SODIUM 112 MCG TABLET PO (06:51)
[2025-06-13] MEDS: POTASSIUM CHLORIDE 20 MEQ ER TABLET PO (06:51)
[2025-06-13 06:53] LABS: Hepatitis B Surface Antigen Negative (Negative)
[2025-06-13 07:13] LABS: Hepatitis B Surface Anti Res Positive
[2025-06-13 09:00] VITALS: PULSE 66; RESP 17; O2SAT 100
[2025-06-13] MEDS: SEVELAMER CARBONATE 800 MG TABLET PO ×3 (09:01→16:34)
[2025-06-13] MEDS: LOSARTAN POTASSIUM 100 MG TABLET PO (09:01)
--- NOTE | 2025-06-13 11:58 | P.PNIM_ITS ---
Progress Note: A&P Assessment and Plan (1) Anemia: Qualifiers: Anemia type: due to chronic kidney disease Chronic kidney disease stage: on chronic dialysis Qualified Code(s): N18.6 - End stage renal disease; D63.1 - Anemia in chronic kidney disease; Z99.2 - Dependence on renal dialysis Code(s): D64.9 - Anemia, unspecified Status: Acute Assessment and Plan: Patient sent to ED due to low hgb. Patient with acute on chronic anemia. Hgb 5.3 on presentation. She started receiving Mircera injections monthly earlier this year. She has chronic rectal bleeding from hemorrhoids but never required transfuse for this issue before. She has chronic anemia felt related to ESRD She received 2 units PRBC. Repeat Hgb 7.6. Hgb stable today. Trend H&H (2) Bleeding internal hemorrhoids: Code(s): K64.8 - Other hemorrhoids Status: Acute Assessment and Plan: Patient with long standing issue with hemorrhoids that bleed frequently. Possibly the source of acute anemia Recent colonsocpy performed in November. General surgery consult. Strongly encouraged her use the rectal creams and wipes. (3) End stage renal disease: Code(s): N18.6 - End stage renal disease Status: Chronic Assessment and Plan: Patient on PD dialysis Consult Nephrology for PD management Continue home Renvela Renal diet, renal dose meds (4) Hypertension: Qualifiers: Hypertension type: primary hypertension Qualified Code(s): I10 - Essential (primary) hypertension Code(s): I10 - Essential (primary) hypertension Status: Chronic Assessment and Plan: Patient's blood pressure was reviewed on 06/13 Blood pressure remains well controlled. Will continue to monitor (5) Depression: Code(s): F32.A - Depression, unspecified Status: Chronic Assessment and Plan: Mood stable but depressed affect. Continue sertraline (6) Hypothyroidism: Qualifiers: Hypothyroidism type: unspecified Qualified Code(s): E03.9 - Hypothyroidism, unspecified Code(s): E03.9 - Hypothyroidism, unspecified Status: Chronic Assessment and Plan: Check TSH. Continue levothyroxine (7) PAD (peripheral artery disease): Code(s): I73.9 - Peripheral vascular disease, unspecified Status: Acute Assessment and Plan: Patient has a hx of LE stents placed. Also had complications in November with what sounds like femoral artery tear and other complications resulting in RLE fasciotomy. Continue Plavix and ASA unless her anemia worsens. 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 Patient slept well. She had a colonoscopy in November at [place]. She has had hemorrhoids for years. She notices blood in the toilet water and on toilet paper after almost every bowel movement now. It is bright red blood. She has seen a surgeon earlier this year during 1 of her complex hospitalizations but no plans to follow-up with the surgeon for definitive hemorrhoid treatment. She is not compliant with the hemorrhoid cream treatment. No chest pain. No shortness of breath. No nausea or vomiting. She is tolerating dialysis well. Exam Narrative: AF 98.1 150/70 66 17 100% ra Gen - NARD Chest - CTA bilaterally, nml RR CV - RRR S1/S2 Abd -soft. Nontender. Nondistended. PD catheter site is clean, dry and intact. -large external hemorrhoids noted. Ext -trace right lower extremity edema. Fasciotomy scars noted medially and laterally in the right lower extremity calf. Neuro - Alert and oriented. Nonfocal exam. Psych -poor eye contact. Depressed affect. Skin - Warm and dry Objective Data Vital Signs Vital Signs: Vital Signs - 24 hr 06/12/25 13:26 06/12/25 13:27 06/12/25 13:29 Temperature Pulse Rate 64 68 70 Respiratory Rate Blood Pressure 103/61 98/61 L 91/53 L Pulse Oximetry Oxygen Delivery 06/12/25 13:31 06/12/25 14:00 06/12/25 14:39 Temperature 98.0 F 97.8 F Pulse Rate 65 68 87 Respiratory Rate 17 16 16 Blood Pressure 91/53 L 106/63 116/62 Pulse Oximetry 98 100 95 Oxygen Delivery 06/12/25 14:55 06/12/25 14:58 06/12/25 15:55 Temperature 97.7 F 97.7 F Pulse Rate 68 68 Respiratory Rate 18 18 Blood Pressure 112/71 114/72 Pulse Oximetry 100 100 Oxygen Delivery Room Air 06/12/25 16:54 06/12/25 17:02 06/12/25 18:02 Temperature 98.3 F 98.3 F 97.7 F Pulse Rate 68 68 69 Respiratory Rate 18 18 16 Blood Pressure 132/68 132/68 143/93 H Pulse Oximetry 100 100 100 Oxygen Delivery 06/12/25 18:42 06/12/25 21:34 06/13/25 05:22 Temperature 98.4 F 98.3 F 98.1 F Pulse Rate 68 68 66 Respiratory Rate 16 16 17 Blood Pressure 141/76 H 148/85 H 150/70 H Pulse Oximetry 100 100 100 Oxygen Delivery 06/13/25 09:00 Temperature Pulse Rate 66 Respiratory Rate 17 Blood Pressure Pulse Oximetry 100 Oxygen Delivery Room Air Intake/Output Intake/Output: Intake & Output 06/10/25 06/11/25 06/12/25 06/13/25 23:59 23:59 23:59 23:59 Intake Total 1140 540 Output Total 1008 Balance 1140 -468 Meds/Results Medications: Active Medications Generic Name Dose Route Start Last Admin Trade Name Freq PRN Reason Stop Dose Admin Acetaminophen 325 mg 06/13/25 01:17 Acetaminophen 325 Mg Tablet PO Q4H PRN Pain 1-3 Aspirin 81 mg 06/13/25 09:00 06/13/25 10:46 Aspirin 81 Mg Enteric Tablet PO Not Given QAM [facility] Atorvastatin Calcium 20 mg 06/13/25 09:00 Atorvastatin 20 Mg Tablet PO QAM [facility] Calcium Carbonate 600 mg 06/13/25 09:00 06/13/25 10:46 Calcium Carbonate (Tums) 500 Mg (200 Mg Elemental) PO Not Given BID KULWINDER Carvedilol 6.25 mg 06/13/25 09:00 06/13/25 10:47 Carvedilol 6.25 Mg Tablet PO Not Given QAM [facility] Clopidogrel Bisulfate 75 mg 06/13/25 09:00 06/13/25 10:48 Clopidogrel Bisulfate 75 Mg Tablet PO Not Given DAILY KULWINDER Diphenhydramine HCl 25 mg 06/13/25 01:19 Diphenhydramine Hcl Cap 25 Mg Capsule PO Q4H PRN Itching Gabapentin 100 mg 06/13/25 09:00 06/13/25 10:48 Gabapentin 100 Mg Capsule PO Not Given Q12HR [facility] Gentamicin Sulfate 1 applic 06/12/25 21:00 06/12/25 21:38 Gentamicin Sulfate 0.1% Cr 15 Gm Tube TOPICAL Not Given QHS [facility] Levothyroxine Sodium 112 mcg 06/13/25 06:30 06/13/25 06:51 Levothyroxine Sodium 112 Mcg Tablet PO 112 mcg DAILY@0630 KULWINDER Administration Losartan Potassium 100 mg 06/13/25 09:00 06/13/25 09:01 Losartan Potassium 100 Mg Tablet PO 100 mg DAILY KULWINDER Administration Methocarbamol 500 mg 06/13/25 09:00 06/13/25 10:48 Methocarbamol 500 Mg Tablet PO Not Given TID [facility] Nifedipine 90 mg 06/13/25 09:00 06/13/25 09:00 Nifedipine 30 Mg Tab.Er.24 PO 90 mg QAM [facility] Administration Ondansetron HCl 4 mg 06/12/25 13:08 Ondansetron Inj 4 Mg/2 Ml Vial IV PUSH Q4H PRN Nausea Oxycodone HCl 5 mg 06/13/25 01:19 Oxycodone Hcl (*Crx) 5 Mg Tab Ir PO Q6H PRN Pain 7-10 Pantoprazole Sodium 40 mg 06/13/25 09:00 06/13/25 10:48 Pantoprazole Sodium Iv 40 Mg Vial IV PUSH Not Given Q12HR [facility] Potassium Chloride 20 meq 06/13/25 09:00 06/13/25 06:51 Potassium Chloride 20 Meq Er Tablet PO 20 meq DAILY [facility] Administration Sertraline HCl 25 mg 06/13/25 09:00 Sertraline Hcl 25 Mg Tablet PO QAM [facility] Sevelamer Carbonate 800 mg 06/13/25 08:00 06/13/25 09:01 Sevelamer Carbonate 800 Mg Tablet PO 800 mg TIDWM [facility] Administration Vitamin D 50 mcg 06/13/25 09:00 Cholecalciferol (Vitamin D3) 25 Mcg (1,000 Units) Tablet PO DAILY [facility] Labs Labs: Laboratory Results - last 24 hr 06/12/25 06/12/25 06/12/25 11:45 12:58 19:52 WBC 6.2 RBC 1.70 L Hgb 5.3 L* 7.6 L Hct 16.7 L* 23.0 L MCV 98.2 MCH 31.2 MCHC 31.7 L RDW 15.4 H Plt Count 288 MPV 9.2 Immature Gran % (Auto) 0.6 H Neut % (Auto) 61.4 Lymph % (Auto) 22.7 [place] % (Auto) 11.1 H Eos % (Auto) 3.7 Baso % (Auto) 0.5 Lymph # (Auto) 1.41 [place] # (Auto) 0.7 H Eos # (Auto) 0.2 Baso # (Auto) 0.0 Abs Immat Gran (auto) 0.04 H Absolute Neuts (auto) 3.8 Absolute Nucleated RBC 0.000 Band Neutrophils % Not Reportable Nucleated RBC % 0.0 Platelet Estimate Adequate Hypochromasia 2+ Anisocytosis Occasional Tear Drop Cells Occasional Ovalocytes 1+ Schistocytes Occasional PT 12.8 INR 0.9 APTT 30.7 Sodium 134 L Potassium 3.0 L Chloride 94 L Carbon Dioxide 32 H Anion Gap 8 BUN 38 H Creatinine 12.52 H Estim Creat Clear Calc 4 Estimated GFR 3 L Glucose 99 Calcium 7.1 L Phosphorus Iron 128 TIBC 222 L % Saturation 58 H Ferritin 364.00 H Total Bilirubin 0.2 AST 21 ALT 18 Alkaline Phosphatase 64 Total Protein 5.4 L Albumin 3.1 L Vitamin B12 903.0 Folate 4.8 Hep Bs Antigen Hep Bs Antibody Blood Type O Positive Antibody Screen Negative Crossmatch See Detail 06/13/25 05:38 WBC 5.5 RBC 2.40 L Hgb 7.4 L Hct 22.2 L MCV 92.5 D MCH 30.8 MCHC 33.3 RDW 16.3 H Plt Count 226 MPV 8.6 Immature Gran % (Auto) 0.5 Neut % (Auto) 56.5 Lymph % (Auto) 27.1 [place] % (Auto) 11.9 H Eos % (Auto) 3.6 Baso % (Auto) 0.4 Lymph # (Auto) 1.50 [place] # (Auto) 0.7 H Eos # (Auto) 0.2 Baso # (Auto) 0.0 Abs Immat Gran (auto) 0.03 Absolute Neuts (auto) 3.1 Absolute Nucleated RBC 0.000 Band Neutrophils % Nucleated RBC % 0.0 Platelet Estimate Hypochromasia Anisocytosis Tear Drop Cells Ovalocytes Schistocytes PT INR APTT Sodium 132 L Potassium 2.7 L* Chloride 97 L Carbon Dioxide 27 Anion Gap 8 BUN 34 H Creatinine 12.26 H Estim Creat Clear Calc 3 Estimated GFR 3 L Glucose 90 Calcium 7.0 L Phosphorus 5.6 H Iron TIBC % Saturation Ferritin Total Bilirubin 0.3 AST 20 ALT 15 Alkaline Phosphatase 54 Total Protein 5.0 L Albumin 2.7 L Vitamin B12 Folate Hep Bs Antigen Negative Hep Bs Antibody Positive Blood Type Antibody Screen Crossmatch
[2025-06-13 13:13] LABS: Potassium 3.5 mmol/L (3.4-5.0)
[2025-06-13 14:00] VITALS: BP 132/73; PULSE 66; RESP 14; TEMP 36.4; O2SAT 100
--- NOTE | 2025-06-13 16:19 | WPDCN ---
Assessment and Plan Assessment and plan (1) Anemia: Qualifiers: Anemia type: due to chronic kidney disease Chronic kidney disease stage: on chronic dialysis Qualified Code(s): N18.6 - End stage renal disease; D63.1 - Anemia in chronic kidney disease; Z99.2 - Dependence on renal dialysis Code(s): D64.9 - Anemia, unspecified Status: Acute Assessment and Plan: Likely due to a combination of her end-stage renal disease and kidney failure as well as loss of blood from her bleeding hemorrhoids. Presently the hemorrhoids are very large non reducible. Not necrotic. Management with blood transfusion has been performed and hemoglobin is better at 7.4. She feels stronger now. (2) Bleeding internal hemorrhoids: Code(s): K64.8 - Other hemorrhoids Status: Acute Assessment and Plan: Will schedule application of Anusol 25mg suppositories t.i.d. to aggressively try to decrease the swelling of the hemorrhoids. Will also apply 2.5% hydrocortisone cream to the external parts of the hemorrhoid which are prolapsing out. This will be done b.i.d.. This is done in an attempt to decrease the size the hemorrhoid so that hemorrhoidectomy can be performed and closed the incision so that she would have a large wounds on the puneet anal region and a shorter recovery time. Can consider also try to manually reduce the hemorrhoids after giving her some Dilaudid for pain medications which I may try tomorrow. There is no urgent or emergent reason for hemorrhoidectomy this weekend. She has no necrotic strangulated hemorrhoids or active exsanguination from hemorrhoids. Will follow. [facility] Data of Consult Date/Time: 06/13/25 16:19 Requesting Physician: Umberto Lyn MD Primary Care Provider: PHYSICIAN NOT ON STAFF Consult Narrative Reason for consult: Severe bleeding grade 4 internal hemorrhoids. Narrative: Roseanna Espinoza is a 65 year old female who has end-stage renal disease and had been on hemodialysis but is now on peritoneal dialysis. She also has peripheral vascular disease and has undergone revascularization procedures at [facility]. At 1 of her admissions earlier this year in November she says that she had a colonoscopy performed while she was admitted and hemorrhoids were seen but no outpatient follow-up was done as her peripheral vascular procedures took precedence. Had outpatient labs done 2 days ago which showed severe anemia with a hemoglobin of 5.6. She was complaining of fatigue and weakness but no shortness of breath. She states that she each time she has bowel movement she does have blood dripping in the toilet and on the toilet paper. This has been going on for quite some time. She has never had hemorrhoid surgery in the past. She has received blood transfusion since admission our hemoglobin is 7.4. I have been asked to evaluate the patient for hemorrhoidectomy to stop excessive blood loss from her hemorrhoids. She is on Plavix for her for vascular disease. Review of Systems Review of Systems: The remainder of the review of systems to include constitutional, HEENT, cardiovascular, respiratory, GI, , integumentary, musculoskeletal, endocrine, immunologic, hematologic, psychiatric, and neurologic are all negative except for which is mentioned above in the HPI. [facility] Past Medical History Medical History Depression Hemorrhoids Hypothyroidism Hyperlipidemia Hypertension End stage renal disease Anemia Social History Social History Years smoked: 20 Smoking status: Former smoker Tobacco type: cigarettes Smoking end date: 07/23/12 Alcohol intake: current Drinks per week: 1 Substance use: never Lack of Transportation: No Lack of Food: Never True Current Housing: I Have Housing Concerned About Future Housing: No Difficulty Paying Gas/Electric Bills: No Difficulty Paying for Meds: No Currently Unemployed: No Education: Associate Degree Difficulty w/ Childcare or Family Care: No Spiritual care concerns: No Meds Home Medications and Allergies Home Medications ?Medication ?Instructions ?Recorded ?Confirmed ?Type acetaminophen 325 mg capsule 325 mg PO Q4H PRN pain 06/12/25 06/12/25 History aspirin 81 mg capsule 81 mg PO DAILY 06/12/25 06/12/25 History atorvastatin 20 mg tablet 20 mg PO QPM 06/12/25 06/13/25 History calcium carbonate (Maggie-[place] 1,500 mg PO BID 06/12/25 06/12/25 History Heartburn Chew) carvedilol 6.25 mg tablet 6.25 mg PO QAM 06/12/25 06/13/25 History Held on 06/13/25. Instructions: Patient says not taking. cefdinir 300 mg capsule 300 mg PO Q12H PRN rash 06/12/25 06/12/25 History cholecalciferol (vitamin D3) 50 50 mcg PO .evening 06/12/25 06/13/25 History mcg (2,000 unit) capsule clonidine HCl 0.1 mg PO Q4H PRN hypertensive 06/12/25 06/12/25 History emergency clopidogrel 75 mg tablet 75 mg PO DAILY 06/12/25 06/13/25 History Held on 06/13/25. Instructions: Patient says not taking. diphenhydramine HCl 25 mg capsule 25 mg PO Q4H PRN itching 06/12/25 06/12/25 History (Aler-Cap) gabapentin 100 mg capsule 100 mg PO BID 06/12/25 06/12/25 History gentamicin sulfate (PF) 100 mg/10 100 mg intraperitoneal QAM PRN rash 06/12/25 06/12/25 History mL intravenous solution guaifenesin 100 mg/5 mL oral 100 mg PO ONCE PRN cough 06/12/25 06/12/25 History liquid (Expectorant) hydrocortisone acetate 25 mg 25 mg RECTAL HS PRN hemorrhoids 06/12/25 06/12/25 History rectal suppository (Anucort-HC) levothyroxine 112 mcg tablet 112 mcg PO QAM 06/12/25 06/12/25 History loperamide 2 mg capsule 2 mg PO Q6H PRN loose stool 06/12/25 06/12/25 History (Anti-Diarrheal (loperamide)) losartan 100 mg tablet 100 mg PO DAILY 06/12/25 06/12/25 History nifedipine 90 mg tablet,extended 90 mg PO QAM 06/12/25 06/12/25 History release oxycodone 5 mg tablet 5 mg PO Q6H PRN pain 06/12/25 06/12/25 History potassium chloride 20 mEq 20 meq PO DAILY 06/12/25 06/12/25 History tablet,extended release (K-Tab) sertraline 25 mg tablet 25 mg PO HS 06/12/25 06/13/25 History sevelamer carbonate 800 mg tablet 800 mg PO TID 06/12/25 06/12/25 History (Renvela) spironolactone 25 mg tablet 25 mg PO DAILY 06/13/25 06/13/25 History Allergies Allergy/AdvReac Type Severity Reaction Status Date / Time No Known Allergies Allergy Verified 06/12/25 10:51 Vital Signs Vital Signs - 24 hr 06/12/25 16:54 06/12/25 17:02 06/12/25 18:02 Temperature 36.8 C 36.8 C 36.5 C Pulse Rate 68 68 69 Respiratory Rate 18 18 16 Blood Pressure 132/68 132/68 143/93 H Pulse Oximetry 100 100 100 Oxygen Delivery 06/12/25 18:42 06/12/25 21:34 06/13/25 05:22 Temperature 36.9 C 36.8 C 36.7 C Pulse Rate 68 68 66 Respiratory Rate 16 16 17 Blood Pressure 141/76 H 148/85 H 150/70 H Pulse Oximetry 100 100 100 Oxygen Delivery 06/13/25 09:00 06/13/25 14:00 Temperature 36.4 C L Pulse Rate 66 66 Respiratory Rate 17 14 Blood Pressure 132/73 Pulse Oximetry 100 100 Oxygen Delivery Room Air Exam Const: General: comfortable and no acute distress HENMT: Ears: TM's normal bilaterally Face/Nose/Sinus: Normal nares present Mouth: Yes moist mucous membranes Eyes: General: appearance normal, both eyes and all related structures Sclera: sclerae normal Pupils: Equal, round and reactive pupils present EOM: EOMs intact bilaterally Neck: Neck: supple and no JVD Resp: Effort & Inspection: normal respiratory effort Auscultation: clear to auscultation bilaterally Cardio: Rate: regular rate Rhythm: regular rhythm GI: GI Palp: Yes Soft to palpation, No Firmness to palpation present (GI), No Tenderness to palpation present (GI), No Guarding due to palpation present (GI) and No Hernia present Other: Rectal exam reveals circumferential grade 4 non reducible, non thrombosed internal hemorrhoids. There is no active bleeding at this time. The hemorrhoids are very tender to palpation however. Skin: General skin exam: normal color and no rashes or lesions noted Neuro: General: gait normal Speech: normal speech Motor exam (neuro): 5/5 motor strength present throughout Sensory Exam: normal sensation Extrem: General: normal to inspection Psych: Mental Status: mental status grossly normal Affect: normal affect Results Labs 06/13/25 05:38 06/13/25 12:39 Labs: Short CBC 06/12/25 06/13/25 Range/Units 19:52 05:38 WBC 5.5 (4.5-10.0) K/mm3 Hgb 7.6 L 7.4 L (12.0-15.0) g/dL Hct 23.0 L 22.2 L (37.0-47.0) % Plt Count 226 (150-375) k/mm3 BMP 06/12/25 06/13/25 06/13/25 12:58 05:38 12:39 Sodium 134 L 132 L Potassium 3.0 L 2.7 L* 3.5 Chloride 94 L 97 L Carbon Dioxide 32 H 27 BUN 38 H 34 H Creatinine 12.52 H 12.26 H Glucose 99 90 Calcium 7.1 L 7.0 L Liver Function 06/12/25 06/13/25 Range/Units 12:58 05:38 Total Bilirubin 0.2 0.3 (0.2-1.3) mg/dL AST 21 20 (14-36) U/L ALT 18 15 (6-35) U/L Alkaline Phosphatase 64 54 (38-126) U/L Albumin 3.1 L 2.7 L (3.5-5.1) g/dL
[2025-06-13] MEDS: CALCIUM CARBONATE (TUMS) 500 MG (200 MG ELEMENTAL) 600 MG PO (16:36)
[2025-06-13] MEDS: ASPIRIN 81 MG CHEWABLE TABLET PO (17:02)
[2025-06-13] MEDS: CHOLECALCIFEROL (VITAMIN D3) 25 MCG (1,000 UNITS) TABLET 50 MCG PO (17:03)
[2025-06-13] MEDS: GABAPENTIN 100 MG CAPSULE PO (17:03)
[2025-06-13] MEDS: ATORVASTATIN 20 MG TABLET PO (17:03)
[2025-06-13] MEDS: GENTAMICIN SULFATE 0.1% CR 15 GM TUBE 1 APPLIC TOPICAL (17:40)
[2025-06-13 17:53] LABS: Hematocrit 25.1 % (37.0-47.0); Hemoglobin 8.5 g/dL (12.0-15.0)
[2025-06-13 18:40] LABS: Thyroid Stimulating Hormone Reflex 1.950 uIU/mL (0.465-4.68)
[2025-06-13 19:40] VITALS: BP 145/90; PULSE 67; RESP 12; TEMP 36.9; O2SAT 100
--- NOTE | 2025-06-13 23:02 | PM.PNNEP ---
Subjective Date/time seen: 06/13/25 11:02 Interval history: See my a late entry note documented today but reflecting a visit on 06/13/2025. Objective Data Vital Signs Vital Signs: Vital Signs - 24 hr 06/14/25 14:00 Temperature 97.1 F L Pulse Rate 65 Respiratory Rate 16 Blood Pressure 178/87 H Pulse Oximetry 100 Intake/Output Intake/Output: Intake & Output 06/12/25 06/13/25 06/14/25 06/15/25 23:59 23:59 23:59 23:59 Intake Total 1140 776 480 Output Total 1006 634 Balance 1140 -232 -154
[2025-06-14] MEDS: HYDROCORTISONE 1% 30 GM CREAM 1 APPLIC TOPICAL ×2 (01:42→09:07)
[2025-06-14 04:15] VITALS: BP 160/93; PULSE 65; RESP 14; TEMP 36.2; O2SAT 100
[2025-06-14 05:51] LABS: Hematocrit 24.5 % (37.0-47.0); Hemoglobin 8.2 g/dL (12.0-15.0); Mean Corpuscular HGB Conc 33.5 g/dl (32-36); Mean Corpuscular Hemoglobin 30.8 pg (26-34); Mean Corpuscular Volume 92.1 fl (80-100); Platelet Count Result 232 k/mm3 (150-375); Red Blood Count 2.66 M/mm3 (4.2-5.4); White Blood Count 6.4 K/mm3 (4.5-10.0)
[2025-06-14] MEDS: LEVOTHYROXINE SODIUM 112 MCG TABLET PO (05:51)
[2025-06-14 06:14] LABS: Albumin Level 3.0 g/dL (3.5-5.1); Anion Gap 9 mmol/L (4-12); Blood Urea Nitrogen 34 mg/dL (7-17); Calcium 8.3 mg/dL (8.4-10.2); Carbon Dioxide 26 mmol/L (22-30); Chloride 96 mmol/L (98-107); Estimated CRCL calculation 3 ml/min; Estimated Glomerular Filt Rate 3; Glucose 106 mg/dL (65-110); Magnesium 2.2 mg/dL (1.6-2.3); Potassium 3.6 mmol/L (3.4-5.0); Sodium 131 mmol/L (137-145)
[2025-06-14] MEDS: ASPIRIN 81 MG CHEWABLE TABLET PO (09:05)
[2025-06-14] MEDS: CALCIUM CARBONATE (TUMS) 500 MG (200 MG ELEMENTAL) 600 MG PO (09:05)
[2025-06-14] MEDS: SEVELAMER CARBONATE 800 MG TABLET PO ×2 (09:06→11:20)
[2025-06-14] MEDS: LOSARTAN POTASSIUM 100 MG TABLET PO (09:06)
--- NOTE | 2025-06-14 11:33 | PM.PNNEP ---
Progress Note: A&P Assessment and Plan (1) End stage renal disease: Code(s): N18.6 - End stage renal disease Status: Chronic Assessment and Plan: continue nightly CCPD treatments follow electrolytes, volume status, and clearance primary genetic technologist = Dr. Stacey Abrams (2) Anemia: Qualifiers: Anemia type: due to chronic kidney disease Chronic kidney disease stage: on chronic dialysis Qualified Code(s): N18.6 - End stage renal disease; D63.1 - Anemia in chronic kidney disease; Z99.2 - Dependence on renal dialysis Code(s): D64.9 - Anemia, unspecified Status: Acute Assessment and Plan: quite severe by outpatient and admission labs check iron studies high dose PERLITA/Epogen PRBC transfusion per protocol r/o GI loss follow trend of H/H (3) Hypokalemia: Code(s): E87.6 - Hypokalemia Status: Acute Assessment and Plan: chronic issue on oral potassium supplements replete as needed (4) Hypertension: Qualifiers: Hypertension type: primary hypertension Qualified Code(s): I10 - Essential (primary) hypertension Code(s): I10 - Essential (primary) hypertension Status: Chronic Assessment and Plan: soft BPs noted on admissin however, given known history of PAD/PVD, question accuracy resume BP medications with parameters follow trend of hemodynamics I will continue to follow the patient with you while e remains hospitalized and make further recommendations as deemed necessary. Thank you for allowing me to participate in the care of this patient. Subjective Date/time seen: 06/14/25 11:33 Review of Systems Cardiovascular: Cardiovascular: Reports no additional cardiovascular complaints Respiratory: Respiratory: Reports no additional respiratory complaints Gastrointestinal: Gastrointestinal: Reports no additional gastrointestinal complaints Genitourinary: Genitourinary: Reports no additional female genitourinary complaints Exam Narrative: WDWN in NAD skin no rash head ncat lungs clear cor reg no rub abd BS+ nontender and soft ext no edema. Objective Data Vital Signs Vital Signs: Vital Signs - 24 hr 06/13/25 14:00 06/13/25 19:40 06/13/25 20:00 Temperature 97.5 F L 98.4 F Pulse Rate 66 67 Respiratory Rate 14 12 Blood Pressure 132/73 145/90 H Pulse Oximetry 100 100 Oxygen Delivery Room Air 06/14/25 04:15 06/14/25 09:18 Temperature 97.1 F L Pulse Rate 65 Respiratory Rate 14 Blood Pressure 160/93 H Pulse Oximetry 100 Oxygen Delivery Room Air Intake/Output Intake/Output: Intake & Output 06/11/25 06/12/25 06/13/25 06/14/25 23:59 23:59 23:59 23:59 Intake Total 1140 776 240 Output Total 1008 Balance 1140 -232 240 Meds/Results Medications: Active Medications Generic Name Dose Route Start Last Admin Trade Name Freq PRN Reason Stop Dose Admin Acetaminophen 325 mg 06/13/25 01:17 Acetaminophen 325 Mg Tablet PO Q4H PRN Pain 1-3 Aspirin 81 mg 06/13/25 18:00 06/14/25 09:05 Aspirin 81 Mg Chewable Tablet PO 81 mg DAILY@0800 [facility] Administration Atorvastatin Calcium 20 mg 06/13/25 18:00 06/13/25 17:03 Atorvastatin 20 Mg Tablet PO 20 mg EVENING [facility] Administration Calcium Carbonate 600 mg 06/13/25 09:00 06/14/25 09:05 Calcium Carbonate (Tums) 500 Mg (200 Mg Elemental) PO 600 mg BID [facility] Administration Carvedilol 6.25 mg 06/13/25 09:00 06/14/25 09:09 Carvedilol 6.25 Mg Tablet PO Not Given QAM [facility] Clopidogrel Bisulfate 75 mg 06/13/25 09:00 06/14/25 09:13 Clopidogrel Bisulfate 75 Mg Tablet PO Not Given DAILY [facility] Diphenhydramine HCl 25 mg 06/13/25 01:19 Diphenhydramine Hcl Cap 25 Mg Capsule PO Q4H PRN Itching Gabapentin 100 mg 06/13/25 18:00 06/13/25 17:03 Gabapentin 100 Mg Capsule PO 100 mg EVENING [facility] Administration Gentamicin Sulfate 1 applic 06/12/25 21:00 06/13/25 17:40 Gentamicin Sulfate 0.1% Cr 15 Gm Tube TOPICAL 1 applic QHS [facility] Administration Hydrocortisone 1 applic 06/13/25 21:00 06/14/25 09:07 Hydrocortisone 1% 30 Gm Cream TOPICAL 1 applic Q12HR [facility] Administration Hydrocortisone Acetate 25 mg 06/13/25 17:00 06/14/25 09:06 Hydrocortisone Acetate 25 Mg Suppository RECTAL Not Given Q8H [facility] Levothyroxine Sodium 112 mcg 06/13/25 06:30 06/14/25 05:51 Levothyroxine Sodium 112 Mcg Tablet PO 112 mcg DAILY@0630 [facility] Administration Losartan Potassium 100 mg 06/13/25 09:00 06/14/25 09:06 Losartan Potassium 100 Mg Tablet PO 100 mg DAILY [facility] Administration Methocarbamol 500 mg 06/13/25 09:00 06/14/25 09:10 Methocarbamol 500 Mg Tablet PO Not Given TID [facility] Nifedipine 90 mg 06/13/25 09:00 06/14/25 09:06 Nifedipine 30 Mg Tab.Er.24 PO 90 mg QAM [facility] Administration Ondansetron HCl 4 mg 06/12/25 13:08 Ondansetron Inj 4 Mg/2 Ml Vial IV PUSH Q4H PRN Nausea Oxycodone HCl 5 mg 06/13/25 01:19 Oxycodone Hcl (*Crx) 5 Mg Tab Ir PO Q6H PRN Pain 7-10 Potassium Chloride 20 meq 06/13/25 09:00 06/14/25 09:11 Potassium Chloride 20 Meq Er Tablet PO Not Given DAILY [facility] Sertraline HCl 25 mg 06/13/25 09:00 06/14/25 09:11 Sertraline Hcl 25 Mg Tablet PO Not Given QAM [facility] Sevelamer Carbonate 800 mg 06/13/25 08:00 06/14/25 11:20 Sevelamer Carbonate 800 Mg Tablet PO 800 mg TIDWM [facility] Administration Vitamin D 50 mcg 06/13/25 18:00 06/13/25 17:03 Cholecalciferol (Vitamin D3) 25 Mcg (1,000 Units) Tablet PO 50 mcg EVENING [facility] Administration Witch Licha 1 pad 06/13/25 11:56 Witch Licha 40 Pads TOPICAL PRN PRN Perineal Discomfort Labs Labs: Laboratory Results - last 24 hr 06/13/25 06/13/25 06/14/25 12:39 17:48 05:33 WBC 6.4 RBC 2.66 L Hgb 8.5 L 8.2 L Hct 25.1 L 24.5 L MCV 92.1 MCH 30.8 MCHC 33.5 RDW 15.9 H Plt Count 232 MPV 8.9 Sodium 131 L Potassium 3.5 3.6 Chloride 96 L Carbon Dioxide 26 Anion Gap 9 BUN 34 H Creatinine 12.13 H Estim Creat Clear Calc 3 Estimated GFR 3 L Glucose 106 Calcium 8.3 L Phosphorus 6.1 H Magnesium 2.2 Albumin 3.0 L TSH (Reflex) 1.950
--- NOTE | 2025-06-14 11:36 | P.PNNP_ITS ---
Progress Note: A&P Assessment and Plan (1) End stage renal disease: Code(s): N18.6 - End stage renal disease Status: Chronic Assessment and Plan: * continue nightly CCPD treatments * volume status looks good * electrolytes okay * primary print buyer = Dr. Stacey Abrams (2) Anemia: Qualifiers: Anemia type: due to chronic kidney disease Chronic kidney disease stage: on chronic dialysis Qualified Code(s): N18.6 - End stage renal disease; D63.1 - Anemia in chronic kidney disease; Z99.2 - Dependence on renal dialysis Code(s): D64.9 - Anemia, unspecified Status: Acute Assessment and Plan: * quite severe by outpatient and admission labs * tsat okay * high dose PERLITA/Epogen * PRBC transfusion per protocol * r/o GI loss * hb up to 8.2 today (3) Hypokalemia: Code(s): E87.6 - Hypokalemia Status: Acute Assessment and Plan: * chronic issue * on oral potassium supplements * K good this time. (4) Hypertension: Qualifiers: Hypertension type: primary hypertension Qualified Code(s): I10 - Essential (primary) hypertension Code(s): I10 - Essential (primary) hypertension Status: Chronic Assessment and Plan: * BP 130 to 160 now * however, given known history of PAD/PVD, question accuracy * on carvedilol, nifedipine, losartan, will change losartan to irbesartan (5) Bleeding internal hemorrhoids: Code(s): K64.8 - Other hemorrhoids Status: Acute Subjective Date/time seen: 06/14/25 11:36 Interval history: alert. feels okay in the room. eager for discharge. on PD mian it well. seen at 9:30am. Review of Systems Cardiovascular: Cardiovascular: Reports no additional cardiovascular c omplaints Respiratory: Respiratory: Reports no additional respiratory complaints Gastrointestinal: Gastrointestinal: Reports no additional gastrointestinal complaints Genitourinary: Genitourinary: Reports no additional female genitourinary complaints Exam Narrative: WDWN in NAD skin no rash head ncat lungs clear cor reg no rub abd BS+ nontender and soft ext no edema. Objective Data Vital Signs Vital Signs: Vital Signs - 24 hr 06/13/25 14:00 06/13/25 19:40 06/13/25 20:00 Temperature 97.5 F L 98.4 F Pulse Rate 66 67 Respiratory Rate 14 12 Blood Pressure 132/73 145/90 H Pulse Oximetry 100 100 Oxygen Delivery Room Air 06/14/25 04:15 06/14/25 09:18 Temperature 97.1 F L Pulse Rate 65 Respiratory Rate 14 Blood Pressure 160/93 H Pulse Oximetry 100 Oxygen Delivery Room Air Intake/Output Intake/Output: Intake & Output 06/11/25 06/12/25 06/13/25 06/14/25 23:59 23:59 23:59 23:59 Intake Total 1140 776 240 Output Total 1008 Balance 1140 -232 240 Meds/Results Medications: Active Medications Generic Name Dose Route Start Last Admin Trade Name Freq PRN Reason Stop Dose Admin Acetaminophen 325 mg 06/13/25 01:17 Acetaminophen 325 Mg Tablet PO Q4H PRN Pain 1-3 Aspirin 81 mg 06/13/25 18:00 06/14/25 09:05 Aspirin 81 Mg Chewable Tablet PO 81 mg DAILY@0800 [facility] Administration Atorvastatin Calcium 20 mg 06/13/25 18:00 06/13/25 17:03 Atorvastatin 20 Mg Tablet PO 20 mg EVENING [facility] Administration Calcium Carbonate 600 mg 06/13/25 09:00 06/14/25 09:05 Calcium Carbonate (Tums) 500 Mg (200 Mg Elemental) PO 600 mg BID [facility] Administration Carvedilol 6.25 mg 06/13/25 09:00 06/14/25 09:09 Carvedilol 6.25 Mg Tablet PO Not Given QAM [facility] Clopidogrel Bisulfate 75 mg 06/13/25 09:00 06/14/25 09:13 Clopidogrel Bisulfate 75 Mg Tablet PO Not Given DAILY [facility] Diphenhydramine HCl 25 mg 06/13/25 01:19 Diphenhydramine Hcl Cap 25 Mg Capsule PO Q4H PRN Itching Gabapentin 100 mg 06/13/25 18:00 06/13/25 17:03 Gabapentin 100 Mg Capsule PO 100 mg EVENING [facility] Administration Gentamicin Sulfate 1 applic 06/12/25 21:00 06/13/25 17:40 Gentamicin Sulfate 0.1% Cr 15 Gm Tube TOPICAL 1 applic QHS [facility] Administration Hydrocortisone 1 applic 06/13/25 21:00 06/14/25 09:07 Hydrocortisone 1% 30 Gm Cream TOPICAL 1 applic Q12HR [facility] Administration Hydrocortisone Acetate 25 mg 06/13/25 17:00 06/14/25 09:06 Hydrocortisone Acetate 25 Mg Suppository RECTAL Not Given Q8H [facility] Levothyroxine Sodium 112 mcg 06/13/25 06:30 06/14/25 05:51 Levothyroxine Sodium 112 Mcg Tablet PO 112 mcg DAILY@0630 [facility] Administration Losartan Potassium 100 mg 06/13/25 09:00 06/14/25 09:06 Losartan Potassium 100 Mg Tablet PO 100 mg DAILY [facility] Administration Methocarbamol 500 mg 06/13/25 09:00 06/14/25 09:10 Methocarbamol 500 Mg Tablet PO Not Given TID [facility] Nifedipine 90 mg 06/13/25 09:00 06/14/25 09:06 Nifedipine 30 Mg Tab.Er.24 PO 90 mg QAM [facility] Administration Ondansetron HCl 4 mg 06/12/25 13:08 Ondansetron Inj 4 Mg/2 Ml Vial IV PUSH Q4H PRN Nausea Oxycodone HCl 5 mg 06/13/25 01:19 Oxycodone Hcl (*Crx) 5 Mg Tab Ir PO Q6H PRN Pain 7-10 Potassium Chloride 20 meq 06/13/25 09:00 06/14/25 09:11 Potassium Chloride 20 Meq Er Tablet PO Not Given DAILY [facility] Sertraline HCl 25 mg 06/13/25 09:00 06/14/25 09:11 Sertraline Hcl 25 Mg Tablet PO Not Given QAM [facility] Sevelamer Carbonate 800 mg 06/13/25 08:00 06/14/25 11:20 Sevelamer Carbonate 800 Mg Tablet PO 800 mg TIDWM [facility] Administration Vitamin D 50 mcg 06/13/25 18:00 06/13/25 17:03 Cholecalciferol (Vitamin D3) 25 Mcg (1,000 Units) Tablet PO 50 mcg EVENING [facility] Administration Witch Licha 1 pad 06/13/25 11:56 Witch Licha 40 Pads TOPICAL PRN PRN Perineal Discomfort Labs Labs: Laboratory Results - last 24 hr 06/13/25 06/13/25 06/14/25 12:39 17:48 05:33 WBC 6.4 RBC 2.66 L Hgb 8.5 L 8.2 L Hct 25.1 L 24.5 L MCV 92.1 MCH 30.8 MCHC 33.5 RDW 15.9 H Plt Count 232 MPV 8.9 Sodium 131 L Potassium 3.5 3.6 Chloride 96 L Carbon Dioxide 26 Anion Gap 9 BUN 34 H Creatinine 12.13 H Estim Creat Clear Calc 3 Estimated GFR 3 L Glucose 106 Calcium 8.3 L Phosphorus 6.1 H Magnesium 2.2 Albumin 3.0 L TSH (Reflex) 1.950
[2025-06-14] MEDS: HYDROmorphone HCL INJ (*CRX) 1 MG/ML SYR IV PUSH (13:14)
[2025-06-14 14:00] VITALS: BP 178/87; PULSE 65; RESP 16; TEMP 36.2; O2SAT 100
--- NOTE | 2025-06-14 14:04 | WPDPN ---
Progress Note: A&P Assessment and Plan (1) Bleeding internal hemorrhoids: Code(s): K64.8 - Other hemorrhoids Status: Acute Assessment and Plan: Patient has grade 4 non reducible circumferential bleeding internal hemorrhoids are improved today. I was actually able to in the reduced hemorrhoids and keep them reduced for about 10minutes which allowed and shrink down. None of the tissue was necrotic. None is thrombosed. Her hemoglobin is even higher today. I think she can discharge home with t.i.d. location of the Anusol suppositories and follow-up in my office next week to arrange for an outpatient elective hemorrhoidectomy due to her chronic blood loss need for blood transfusion from chronic blood loss. Patient and her daughter were instructed to call my office tomorrow to make an appointment for right after . Disposition as per hospitalist service. Subjective Date/time seen: 06/14/25 14:04 Interval history: Patient is doing better today. Less pain hemorrhoids. States that she thinks her hemorrhoids are smaller in with the increased application of suppositories and hydrocortisone cream to the external part of the hemorrhoids. Did not have a bowel movement today. Hemoglobin is actually increased to around 8 today. Exam GI: Other: Hemorrhoids are decreased in size today. No active bleeding. No thrombosis. They are reducible today. Objective Data Vital Signs Vital Signs: Vital Signs - 24 hr 06/13/25 19:40 06/13/25 20:00 06/14/25 04:15 Temperature 36.9 C 36.2 C L Pulse Rate 67 65 Respiratory Rate 12 14 Blood Pressure 145/90 H 160/93 H Pulse Oximetry 100 100 Oxygen Delivery Room Air 06/14/25 09:18 Temperature Pulse Rate Respiratory Rate Blood Pressure Pulse Oximetry Oxygen Delivery Room Air Intake/Output Intake/Output: Intake & Output 06/11/25 06/12/25 06/13/25 06/14/25 23:59 23:59 23:59 23:59 Intake Total 1140 776 240 Output Total 100 634 Balance 5757 -700 -952 Meds/Results Medications: Active Medications Generic Name Dose Route Start Last Admin Trade Name Freq PRN Reason Stop Dose Admin Acetaminophen 325 mg 06/13/25 01:17 Acetaminophen 325 Mg Tablet PO Q4H PRN Pain 1-3 Aspirin 81 mg 06/13/25 18:00 06/14/25 09:05 Aspirin 81 Mg Chewable Tablet PO 81 mg DAILY@0800 [facility] Administration Atorvastatin Calcium 20 mg 06/13/25 18:00 06/13/25 17:03 Atorvastatin 20 Mg Tablet PO 20 mg EVENING [facility] Administration Calcium Carbonate 600 mg 06/13/25 09:00 06/14/25 09:05 Calcium Carbonate (Tums) 500 Mg (200 Mg Elemental) PO 600 mg BID [facility] Administration Carvedilol 6.25 mg 06/13/25 09:00 06/14/25 09:09 Carvedilol 6.25 Mg Tablet PO Not Given QAM [facility] Clopidogrel Bisulfate 75 mg 06/13/25 09:00 06/14/25 09:13 Clopidogrel Bisulfate 75 Mg Tablet PO Not Given DAILY [facility] Diphenhydramine HCl 25 mg 06/13/25 01:19 Diphenhydramine Hcl Cap 25 Mg Capsule PO Q4H PRN Itching Gabapentin 100 mg 06/13/25 18:00 06/13/25 17:03 Gabapentin 100 Mg Capsule PO 100 mg EVENING [facility] Administration Gentamicin Sulfate 1 applic 06/12/25 21:00 06/13/25 17:40 Gentamicin Sulfate 0.1% Cr 15 Gm Tube TOPICAL 1 applic QHS [facility] Administration Hydrocortisone 1 applic 06/13/25 21:00 06/14/25 09:07 Hydrocortisone 1% 30 Gm Cream TOPICAL 1 applic Q12HR [facility] Administration Hydrocortisone Acetate 25 mg 06/13/25 17:00 06/14/25 09:06 Hydrocortisone Acetate 25 Mg Suppository RECTAL Not Given Q8H [facility] Levothyroxine Sodium 112 mcg 06/13/25 06:30 06/14/25 05:51 Levothyroxine Sodium 112 Mcg Tablet PO 112 mcg DAILY@0630 [facility] Administration Losartan Potassium 100 mg 06/13/25 09:00 06/14/25 09:06 Losartan Potassium 100 Mg Tablet PO 100 mg DAILY [facility] Administration Methocarbamol 500 mg 06/13/25 09:00 06/14/25 09:10 Methocarbamol 500 Mg Tablet PO Not Given TID [facility] Nifedipine 90 mg 06/13/25 09:00 06/14/25 09:06 Nifedipine 30 Mg Tab.Er.24 PO 90 mg QAM [facility] Administration Ondansetron HCl 4 mg 06/12/25 13:08 Ondansetron Inj 4 Mg/2 Ml Vial IV PUSH Q4H PRN Nausea Oxycodone HCl 5 mg 06/13/25 01:19 Oxycodone Hcl (*Crx) 5 Mg Tab Ir PO Q6H PRN Pain 7-10 Potassium Chloride 20 meq 06/13/25 09:00 06/14/25 09:11 Potassium Chloride 20 Meq Er Tablet PO Not Given DAILY [facility] Sertraline HCl 25 mg 06/13/25 09:00 06/14/25 09:11 Sertraline Hcl 25 Mg Tablet PO Not Given QAM [facility] Sevelamer Carbonate 800 mg 06/13/25 08:00 06/14/25 11:20 Sevelamer Carbonate 800 Mg Tablet PO 800 mg TIDWM [facility] Administration Vitamin D 50 mcg 06/13/25 18:00 06/13/25 17:03 Cholecalciferol (Vitamin D3) 25 Mcg (1,000 Units) Tablet PO 50 mcg EVENING [facility] Administration Witch Licha 1 pad 06/13/25 11:56 Witch Licha 40 Pads TOPICAL PRN PRN Perineal Discomfort Labs Labs: Laboratory Results - last 24 hr 06/13/25 06/14/25 17:48 05:33 WBC 6.4 RBC 2.66 L Hgb 8.5 L 8.2 L Hct 25.1 L 24.5 L MCV 92.1 MCH 30.8 MCHC 33.5 RDW 15.9 H Plt Count 232 MPV 8.9 Sodium 131 L Potassium 3.6 Chloride 96 L Carbon Dioxide 26 Anion Gap 9 BUN 34 H Creatinine 12.13 H Estim Creat Clear Calc 3 Estimated GFR 3 L Glucose 106 Calcium 8.3 L Phosphorus 6.1 H Magnesium 2.2 Albumin 3.0 L TSH (Reflex) 1.950
--- NOTE | 2025-06-14 14:40 | P.DS_ITS ---
DS: Admitting Diagnosis Discharge Date 06/14/25 Admitting Diagnosis Anemia DS: Discharge Diagnosis Discharge Diagnosis (1) Anemia: Qualifiers: Anemia type: due to chronic kidney disease Chronic kidney disease stage: on chronic dialysis Qualified Code(s): N18.6 - End stage renal disease; D63.1 - Anemia in chronic kidney disease; Z99.2 - Dependence on renal dialysis Code(s): D64.9 - Anemia, unspecified Status: Acute (2) Bleeding internal hemorrhoids: Code(s): K64.8 - Other hemorrhoids Status: Acute (3) End stage renal disease: Code(s): N18.6 - End stage renal disease Status: Chronic (4) Hypertension: Qualifiers: Hypertension type: primary hypertension Qualified Code(s): I10 - Essential (primary) hypertension Code(s): I10 - Essential (primary) hypertension Status: Chronic (5) Depression: Code(s): F32.A - Depression, unspecified Status: Chronic (6) Hypothyroidism: Qualifiers: Hypothyroidism type: unspecified Qualified Code(s): E03.9 - Hypothyroidism, unspecified Code(s): E03.9 - Hypothyroidism, unspecified Status: Chronic (7) PAD (peripheral artery disease): Code(s): I73.9 - Peripheral vascular disease, unspecified Status: Acute DS: Summary Hospital Course Reason for hospitalization: 65yo female with HTN, ESRD on PD, anemia of chronic disease, hemorrhoids, and HLD presents to the ED on 06/12/2025 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 Please see H&P for details. Hospital Course: Patient sent to ED due to low hgb. Patient with acute on chronic anemia. Hgb 5.3 on presentation. She started receiving Mircera injections monthly earlier this year. She has chronic rectal bleeding from hemorrhoids but never required transfuse for this issue before. She has chronic anemia felt related to ESRD. She received 2 units PRBC. Repeat Hgb 7.6 and climbed to 8.2. Patient with long standing issue with hemorrhoids that bleed frequently. Possibly the source of acute anemia. Recent colonoscopy performed in November. Patient has grade 4 non reducible circumferential bleeding internal hemorrhoids. General surgery consulted. She was strongly encouraged to use the rectal creams and suppositories. Surgery was able to reduce the hemorrhoids. None of the tissue was necrotic. None was thrombosed. Patient on PD dialysis which was continued here. Nephrology consulted for PD management. We continued home Renvela. Patient has a hx of PAD with LE stents placed. Also had complications in November with what sounds like femoral artery tear and other complications resulting in RLE fasciotomy. We continued Plavix and ASA here. The patient overall did well and was able to be discharged home on 06/14/25. Discharge instructions discussed including medication side effects and all questions answered. Status at Discharge Cognitive/behavioral status at discharge: stable Time Spent with Patient Time attestation: Total time spent providing and/or coordinating discharge services: 33 minutes Time spent: Greater than 30 minutes Exam Narrative: AF 97.1 160/93 65 14 100% ra Gen - NARD Chest - CTA bilaterally, nml RR CV - RRR S1/S2 Abd -soft. Nontender. Nondistended. PD catheter site is clean, dry and intact. Ext - no lower extremity edema. Neuro - Alert and oriented. Skin - Warm and dry DS: Data Data Completed and Pending Labs on day of discharge: Labs from last 24 hours 06/14/25 06/13/25 05:33 17:48 WBC 6.4 RBC 2.66 L Hgb 8.2 L 8.5 L Hct 24.5 L 25.1 L MCV 92.1 MCH 30.8 MCHC 33.5 RDW 15.9 H Plt Count 232 MPV 8.9 Sodium 131 L Potassium 3.6 Chloride 96 L Carbon Dioxide 26 Anion Gap 9 BUN 34 H Creatinine 12.13 H Estim Creat Clear Calc 3 Estimated GFR 3 L Glucose 106 Calcium 8.3 L Phosphorus 6.1 H Magnesium 2.2 Albumin 3.0 L TSH (Reflex) 1.950 Discharge Plan Discharge Attending physician on discharge: Filippo Lyn Consulting providers: Mana,Aide Cohn; Salas Fairchild; Riky Bella Discharging Clinician: Filippo Lyn Anticipated Discharge Date/Time: 06/14/25 14:48 Patient Disposition: Home Activity: november shower and no straining Diet: high fiber Discharge Instructions: Sitz baths p.r.n. for swelling of her hemorrhoids (DO NOT submerge abdominal catheter site). Try to manually reduce the hemorrhoids as needed. Use the Anusol suppositories as directed. If the prescription for Anusol suppositories too expensive then contact my office to get a prescription for Proctofoam with applicator. Follow- up to see Dr. Bella in the office the June. Call [phone] for an appointment. Continue peritoneal dialysis per routine schedule Contact your doctor or call 911 and come to the Emergency Room if you have lightheadedness with standing or other worrisome symptoms. Avoid NSAIDs (ibuprofen, naproxen, Aleve). Tylenol is safe to take. Follow-up with your primary care provider in 1-2 weeks. Please call for appointment. Follow-up with your kidney doctor at next scheduled appointment. Thank you for using [facility] for your health care needs. Patient Instructions: Antibiotic Form Patient Language: Mohawk Stand Alone Forms: General Discharge Information Follow-up/Referrals: PHYSICIAN NOT ON STAFF,NONSTAFF [Primary Care Provider] - Call for Appointment Salas Fairchild MD [Physician, Nephrology] - Call for Appointment Riky Bella MD [Physician, General Surgery] Referral Note: Follow-up with Dr. Bella in the office June. Discharge Medications: New Preparation H (Katharina Hurt) 50 % Pads, Medicated 1 pad topical PRN PRN (Reason: Perineal Discomfort) Qty: 48 0RF hydrocortisone 1 % Cream 1 applic topical Q12HR Qty: 28.4 0RF Rx Instructions: Apply hydrocortisone cream to the external parts of the hemorrhoid hydrocortisone acetate [Anusol-HC] 25 mg suppository 25 mg RECTAL TID Qty: 24 2RF irbesartan 150 mg Tablet 150 mg PO QAM Qty: 30 0RF Continued clonidine HCl 0.1 mg PO Q4H PRN (Reason: hypertensive emergency) diphenhydramine HCl [Aler-Cap] 25 mg capsule 25 mg PO Q4H PRN (Reason: itching) clopidogrel 75 mg tablet 75 mg PO DAILY gentamicin sulfate (PF) 100 mg/10 mL solution 100 mg intraperitoneal QAM PRN (Reason: rash) levothyroxine 112 mcg tablet 112 mcg PO QAM [place] Heartburn Chew 300 mg (750 mg) tablet,chewable 1,500 mg PO BID acetaminophen 325 mg capsule 325 mg PO Q4H PRN (Reason: pain) nifedipine 90 mg tablet extended release 90 mg PO QAM aspirin 81 mg capsule 81 mg PO DAILY Patient Comments: Patient wants chewable atorvastatin 20 mg tablet 20 mg PO QPM oxycodone 5 mg tablet 5 mg PO Q6H PRN (Reason: pain) sevelamer carbonate [Renvela] 800 mg tablet 800 mg PO TID Rx Instructions: must administer with a meal/food cholecalciferol (vitamin D3) 50 mcg (2,000 unit) capsule 50 mcg PO .evening spironolactone 25 mg tablet 25 mg PO DAILY Changed gabapentin 100 mg capsule 100 mg PO QHS Qty: 30 0RF Held sertraline 25 mg tablet 25 mg PO HS Hold Instructions: Talk with your doctor to see if you should be taking this potassium chloride [K-Tab] 20 mEq tablet extended release 20 meq PO DAILY Hold Instructions: Talk with your doctor to see if you should be taking this carvedilol 6.25 mg tablet 6.25 mg PO QAM Hold Instructions: Talk with your doctor to see if you should be taking this Discontinued loperamide [Anti-Diarrheal (loperamide)] 2 mg capsule 2 mg PO Q6H PRN (Reason: loose stool) hydrocortisone acetate [Anucort-HC] 25 mg suppository 25 mg RECTAL HS PRN (Reason: hemorrhoids) cefdinir 300 mg capsule 300 mg PO Q12H PRN (Reason: rash) Patient Comments: Take one capsule as need if HD nurse orders. losartan 100 mg tablet 100 mg PO DAILY guaifenesin [Expectorant] 100 mg/5 mL liquid 100 mg PO ONCE PRN (Reason: cough) Date of admission: 06/13/25 15:34 Primary Care Provider: PHYSICIAN NOT ON STAFF,NONSTAFF Admitting Provider: Filippo Lyn Attending physician on admission: Filippo Lyn Condition: Stable Hospitalist MIPS Heart Failure (Exclusion) Patient has history of Heart Transplant or Left Ventricular Assistive Device?: No IF YES, STOP HERE Heart Failure (Qualifier) Patient has current or prior documentation of LVEF less than or equal to 40%, or mod/servere depressed LVSF?: No IF NO, STOP HERE
--- NOTE | 2025-06-15 10:42 | PM.PNNEP ---
Progress Note: A&P Assessment and Plan (1) End stage renal disease: Code(s): N18.6 - End stage renal disease Status: Chronic Assessment and Plan: Late entry. This is a note from June 13. For some reason the system would not let me add this note even no the patient was registered at this time. She had been in the emergency room on the . Patient is on peritoneal dialysis The patient's dialysis ended in the middle of the night. Apparently the came in and not helped her. The dialysis nurses instructed the family and staff to let her stay connected and dialysis staff can disconnect in the morning. Will check chemistries tomorrow (2) Hypertension: Qualifiers: Hypertension type: primary hypertension Qualified Code(s): I10 - Essential (primary) hypertension Code(s): I10 - Essential (primary) hypertension Status: Chronic Assessment and Plan: Blood pressure improved after the transfusion Fold blood pressure medicines back in as the blood pressure rises (3) Bleeding internal hemorrhoids: Code(s): K64.8 - Other hemorrhoids Status: Acute Assessment and Plan: The patient had bleeding hemorrhoids. Received some blood. Hemoglobin is up to above 7. Check another CBC tomorrow Subjective Date/time seen: 06/13/25 10:42 Interval history: Patient is resting comfortably in bed No complaints. She received some blood yesterday Exam Narrative: WDWN in NAD skin no rash head ncat lungs clear cor reg no rub abd BS+ nontender and soft ext no edema. Objective Data Vital Signs Vital Signs: Vital Signs - 24 hr 06/14/25 14:00 Temperature 97.1 F L Pulse Rate 65 Respiratory Rate 16 Blood Pressure 178/87 H Pulse Oximetry 100 Intake/Output Intake/Output: Intake & Output 06/12/25 06/13/25 06/14/25 06/15/25 23:59 23:59 23:59 23:59 Intake Total 1140 776 480 Output Total 1008 634 Balance 5906 -564 -332
== END 2025-06-14 17:00 | disposition home or self-care (01) | DRG 682 ==
LOC: ANHED 13:07 → ANH3MEDSUR 13:48
PROVIDERS: Internal Medicine Nephrology; Admitting Provider Internal Medicine; Emergency Provider Emergency Medicine; Visit Provider Internal Medicine
DX: I12.0 Hypertensive chronic kidney disease with stage 5 chronic kidney disease or end stage renal disease (principal); N18.6 End stage renal disease; D63.1 Anemia in chronic kidney disease; E78.5 Hyperlipidemia, unspecified; E87.6 Hypokalemia; E03.9 Hypothyroidism, unspecified; F32.A Depression, unspecified; I73.9 Peripheral vascular disease, unspecified; K64.8 Other hemorrhoids; Z99.2 Dependence on renal dialysis; Z79.82 Long term (current) use of aspirin; Z79.02 Long term (current) use of antithrombotics/antiplatelets; Z87.891 Personal history of nicotine dependence; Z95.828 Presence of other vascular implants and grafts
CPT/HCPCS: 36415; 36430; 80053; 80069; 82607; 82728; 82746; 83540; 83550; 83735; 84100; 84132; 84443; 85014; 85018; 85025; 85027; 85610; 85730; 86706; 86850; 86900; 86901; 86923; 87340; 90945; 96374; 99285; A9270; G0378; J1171; J3480; J7050; P9016

== ENCOUNTER 2025-06-29 13:40 | Inpatient (IN) | payer MEDICARE, OTHER, SELFPAY ==
[2025-06-29] VITALS (18 sets, daily range): BP systolic 105–164; BP diastolic 68–91; PULSE 71–85; RESP 13–20; TEMP 36.1–37; O2SAT 98–100; BMI 26.2
[2025-06-29 14:32] LABS: Immature Granulocyte Percent A 0.4 % (0-0.5); Lymphocytes Absolute Auto 1.08 K/mm3 (0.9-3.2); Mean Corpuscular HGB Conc 31.2 g/dl (32-36); Mean Corpuscular Hemoglobin 31.2 pg (26-34); Mean Corpuscular Volume 100.0 fl (80-100); Nucleated Red Blood Cells Absolute Auto 0.000 K/mm3 (0.0-0.012); Nucleated Red Blood Cells Perc 0.0 % (0.0-0.2); Platelet Count Result 279 k/mm3 (150-375); Red Blood Count 1.70 M/mm3 (4.2-5.4); White Blood Count 5.3 K/mm3 (4.5-10.0)
[2025-06-29 14:46] LABS: Hematocrit 17.0 % (37.0-47.0); Hemoglobin 5.3 g/dL (12.0-15.0)
--- NOTE | 2025-06-29 14:51 | ED.RECABL ---
HPI - Recheck/Abnormal Lab/Rx General Chief Complaint: Recheck/Abnormal Lab/Rx Stated Complaint: sent for blood transfusion by dialysis nurse Time Seen by Provider: 06/29/25 14:40 Source: patient, RN notes reviewed and old records reviewed Mode of arrival: ambulatory Limitations: no limitations History of Present Illness HPI narrative: This is a 65 year old female with chronic anemia, ERSD on peritoneal dialysis who presents for blood transfusion . She has labs done in dialysis clinic and she was found to be anemic so she was sent to ER. She denies chest pain, shortness of breath. She does reports weakness for a couple months. She received blood transfusion 3-4 weeks ago for bleeding hemorrhoids. SHe reports she still has intermittent bleeding but she has not had bleeding in 5 days. Related Data Home Medications ?Medication ?Instructions ?Recorded ?Confirmed ?Last Taken ?Type acetaminophen 325 mg capsule 325 mg PO Q4H PRN pain 06/12/25 06/29/25 Unknown History aspirin 81 mg capsule 81 mg PO DAILY 06/12/25 06/29/25 Unknown History atorvastatin 20 mg tablet 20 mg PO QPM 06/12/25 06/29/25 Unknown History calcium carbonate ([place] 1,500 mg PO BID 06/12/25 06/29/25 Unknown History Heartburn Chew) carvedilol 6.25 mg tablet 6.25 mg PO QAM 06/12/25 06/29/25 Unknown History cholecalciferol (vitamin D3) 50 50 mcg PO .evening 06/12/25 06/29/25 Unknown History mcg (2,000 unit) capsule clopidogrel 75 mg tablet 75 mg PO DAILY 06/12/25 06/29/25 Unknown History levothyroxine 112 mcg tablet 112 mcg PO QAM 06/12/25 06/29/25 Unknown History nifedipine 90 mg tablet,extended 90 mg PO QAM 06/12/25 06/29/25 Unknown History release oxycodone 5 mg tablet 5 mg PO Q6H PRN pain 06/12/25 06/29/25 Unknown History potassium chloride 20 mEq 20 meq PO DAILY 06/12/25 06/29/25 Unknown History tablet,extended release (K-Tab) sertraline 25 mg tablet 25 mg PO HS 06/12/25 06/29/25 Unknown History sevelamer carbonate 800 mg tablet 800 mg PO TID 06/12/25 06/29/25 Unknown History (Renvela) spironolactone 25 mg tablet 25 mg PO DAILY 06/13/25 06/29/25 06/11/25 History pentoxifylline 400 mg 400 mg PO DAILY 06/29/25 06/29/25 Unknown History tablet,extended release ropinirole 0.5 mg tablet 0.5 mg PO PRN Restless leg 06/29/25 06/29/25 Unknown History Allergies Allergy/AdvReac Type Severity Reaction Status Date / Time No Known Allergies Allergy Verified 06/29/25 19:14 PMFSH Past Medical History Medical History PAD (peripheral artery disease) Depression Hemorrhoids Hypothyroidism Hyperlipidemia Hypertension End stage renal disease Anemia Social History Social History Years smoked: 20 Smoking status: Former smoker Alcohol intake: current Drinks per week: 1 Substance use: never Lack of Transportation: No Lack of Food: Never True Current Housing: I Have Housing Concerned About Future Housing: No Difficulty Paying Gas/Electric Bills: No Difficulty Paying for Meds: No Currently Unemployed: No Education: Associate Degree Difficulty w/ Childcare or Family Care: No Spiritual care concerns: No Exam Const: General: no acute distress Nutritional Appearance: well nourished Orientation/consciousness: patient oriented x3 HENMT: Head: normal to inspection Eyes: EOM: EOMs intact bilaterally Resp: Effort & Inspection: normal respiratory effort Auscultation: clear to auscultation bilaterally Cardio: Rate: regular rate Rhythm: regular rhythm Heart sounds: no murmurs GI: GI Palp: Yes Soft to palpation, No Tenderness to palpation present (GI), No Guarding due to palpation present (GI) and No Rigid due to palpation Auscultation: normal bowel sounds Skin: General skin exam: normal color Rashes: no rashes Neuro: General: patient oriented x3, moves all extremities and CN's II-XI intact bilaterally Psych: Mental Status: mental status grossly normal Affect: normal affect Attitude: cooperative Course Consultations Hospitalist: Time of Consult: 16:19 I have discussed the care of this patient with the following provider: Harvey- hospitalist accepts to tele Vital Signs Vital signs: Vital Signs Temperature 98.1 F 06/29/25 13:53 Pulse Rate 71 06/29/25 13:53 Respiratory Rate 16 06/29/25 13:53 Blood Pressure 107/68 06/29/25 13:53 Pulse Oximetry 100 06/29/25 13:53 Oxygen Delivery Room Air 06/29/25 13:53 Temperature 97 F L 06/29/25 19:25 Pulse Rate 82 06/29/25 19:25 Respiratory Rate 16 06/29/25 19:25 Blood Pressure 164/75 H 06/29/25 19:25 Pulse Oximetry 100 06/29/25 19:25 Oxygen Delivery Room Air 06/29/25 13:53 MDM MDM Narrative Medical decision making narrative: Patient presents with anemia but no acute bleeding at this time. 2 units PRBC ordered for transfusion. I consulted Dr. Lund to arrange for her PD that she needs tonight. PAtient in no acute distress Differential Diagnosis Differential Diagnosis: anemia due to chronic disease, iron deficiency anemia, Medical Records I have reviewed the following patient records and this information was taken into consideration when formulating the assessment and plan.: previous labs, previous ER visits and previous hospitalizations Lab Data [facility] Lab Attestation statement: I personally reviewed the patient's lab results. 06/29/25 14:20 06/29/25 14:20 Labs: Lab Results 06/29/25 Range/Units 14:20 WBC 5.3 (4.5-10.0) K/mm3 RBC 1.70 L (4.2-5.4) M/mm3 Hgb 5.3 L* (12.0-15.0) g/dL Hct 17.0 L* (37.0-47.0) % MCV 100.0 (80-100) fl MCH 31.2 (26-34) pg MCHC 31.2 L (32-36) g/dl RDW 16.1 H (11.5-14.5) % Plt Count 279 (150-375) k/mm3 MPV 8.7 (7.4-10.4) fl Immature Gran % (Auto) 0.4 (0-0.5) % Neut % (Auto) 63.5 (45.5-73.1) % Lymph % (Auto) 20.5 (18.3-44.2) % [place] % (Auto) 12.0 H (2.6-8.5) % Eos % (Auto) 3.2 (0-4.4) % Baso % (Auto) 0.4 (0.2-1.2) % Lymph # (Auto) 1.08 (0.9-3.2) K/mm3 [place] # (Auto) 0.6 (0.1-0.6) K/mm3 Eos # (Auto) 0.2 (0-0.3) K/mm3 Baso # (Auto) 0.0 (0.0-0.1) K/mm3 Abs Immat Gran (auto) 0.02 (0.00-0.031) K/mm3 Absolute Neuts (auto) 3.3 (1.3-6.7) K/mm3 Absolute Nucleated RBC 0.000 (0.0-0.012) K/mm3 Nucleated RBC % 0.0 (0.0-0.2) % PT 13.1 (11.1-14.7) Seconds INR 1.0 APTT 31.2 (22.3-36.8) Seconds Sodium 132 L (137-145) mmol/L Potassium 3.7 (3.4-5.0) mmol/L Chloride 97 L (98-107) mmol/L Carbon Dioxide 30 (22-30) mmol/L Anion Gap 5 (4-12) mmol/L BUN 39 H (7-17) mg/dL Creatinine 13.41 H (0.7-1.0) mg/dL Estim Creat Clear Calc 3 ml/min Estimated GFR 3 L (59 - ) Glucose 103 (65-110) mg/dL Calcium 7.2 L (8.4-10.2) mg/dL Iron 46 (37-170) ug/dL TIBC 231 L (261-462) ug/dL % Saturation 20 (20-50) % Total Bilirubin 0.4 (0.2-1.3) mg/dL AST 29 (14-36) U/L ALT 15 (6-35) U/L Alkaline Phosphatase 52 (38-126) U/L Total Protein 5.6 L (6.3-8.2) g/dL Albumin 3.1 L (3.5-5.1) g/dL Blood Type O Positive Antibody Screen Negative Crossmatch See Detail Critical Care Time Critical Care Time Critical Care Time: Yes Time Type: Intermittent Initial evaluation, discuss w/ involved parties, attempting to gather old records: 10 minutes Documenting medical record: 10 minutes Review of results (EKG's, labs, imaging): 5 minutes Serial repeat bedside evaluation: N/A Discussing case with multiple memebers of the care team and consultants: 10 minutes Total Critical Care Time: 35 Discharge Plan Discharge Clinical Impression: End stage renal disease Anemia Qualifiers: Anemia type: due to chronic kidney disease Chronic kidney disease stage: on chronic dialysis Qualified Code(s): N18.6 - End stage renal disease Patient Disposition: Still a Patient Condition: Guarded Prognosis
[2025-06-29] MEDS: SODIUM CHLORIDE 0.9% IV 250 ML 30 ML IV CONT (15:45)
[2025-06-29 15:47] LABS: Iron 46 ug/dL (37-170)
[2025-06-29 15:49] LABS: Alanine Aminotransferase 15 U/L (6-35); Albumin Level 3.1 g/dL (3.5-5.1); Alkaline Phosphatase 52 U/L (38-126); Anion Gap 5 mmol/L (4-12); Aspartate Amino Transferase 29 U/L (14-36); Bilirubin,Total 0.4 mg/dL (0.2-1.3); Blood Urea Nitrogen 39 mg/dL (7-17); Calcium 7.2 mg/dL (8.4-10.2); Carbon Dioxide 30 mmol/L (22-30); Chloride 97 mmol/L (98-107); Estimated CRCL calculation 3 ml/min; Estimated Glomerular Filt Rate 3; Glucose 103 mg/dL (65-110); INR 1.0; Potassium 3.7 mmol/L (3.4-5.0); Prothrombin Time 13.1 Seconds (11.1-14.7); Sodium 132 mmol/L (137-145); Total Protein 5.6 g/dL (6.3-8.2)
[2025-06-29 15:50] LABS: Partial Thromboplastin Time 31.2 Seconds (22.3-36.8)
[2025-06-29 15:58] LABS: Percent Iron Saturation 20 % (20-50)
--- NOTE | 2025-06-29 17:39 | WPCEDHO ---
ED Hand Off Checklist All vitals saved: yes IV Site documented: yes All med administrations documented: yes, first unit almost finished transfusing; needs second unit Triage Note Triage Note Pt presents with low hgb. Pt does 06/29/25 16:27 peritoneal dialysis, had labs drawn and was called back and told to come to ED today . Pt reports needing a blood transfusion one other time, about a month ago she states. Endorses some recent dizziness and states her hemorrhoids are bleeding more for a while now. Allergies No Known Allergies Allergy (Verified 06/12/25 10:51) Active Medications including assessments/comments Sodium Chloride (Normal Saline Iv) 250 mls @ 30 mls/hr IV CONT .Q8H20M STA Stop: 06/29/25 23:08 Last Admin: 06/29/25 15:45 Dose: 30 mls/hr Documented By: JACKELYN Infusion/Titration Document 06/29/25 15:45 JACKELYN (Rec: 06/29/25 17:37 JACKELYN [id number]) Intake IV Site Peripheral Access Right Forearm Container Volume 250 Waste Amount 0 Dosing Infusion Rate 30 Cumulative Dose Not Applicable Increase/Decrease Started Elapsed Time Elapsed Time ( 0m minutes) Administered/Completed Medications Discontinued Medications IV Miscellaneous Supplies (Tubing, Blood [place] Pump Tubing) Confirm Administered Dose 1 each XX .STK-MED ONE Stop: 06/29/25 15:31 Last Admin: 06/29/25 17:38 Dose: Not Given Documented By: JACKELYN Non-Admin Reason: used for blood Interventions/Assessments General Assessment Start: 06/29/25 13:53 Freq: Status: Active Protocol: Document 06/29/25 16:30 JACKELYN (Rec: 06/29/25 16:31 JACKELYN [id number]) GA Neurological Assessment Level of Alert,Awake Consciousness Arousable to Verbal Orientation Oriented to Person,Oriented to Place,Oriented to Time Behavior Cooperative,Fatigued Patient Able to Comprehend Comprehension Memory Description Intact Ability to Maintain Normal Balance Facial Symmetry Symmetrical Speech Pattern Clear Finger to Nose Test Normal Performance Heel to [place] Test Normal Performance [place] Cardiovascular Assessment Cardiovascular No Assessment WNL Cardiovascular Dyspnea Symptoms Skin Description Pallor,Warm Additional dyspnea with exertion, denies at rest Cardiovascular Assessment Comments IV / Saline Lock, Insert Start: 06/29/25 13:53 Freq: Status: Active Protocol: Document 06/29/25 14:22 SHERRY (Rec: 06/29/25 14:22 KED [id number]) IV Assessment Peripheral Access Right Forearm IV Catheter Access Initiated IV Insertion Date 06/29/25 IV Insertion Time 14:22 Catheter Gauge 20 IV Insertion 1 Attempts Ultrasound Used for No Placement IV Site Assessment WNL IV Care and WNL Maintenance Last Vital Signs Temperature 98.6 F 06/29/25 17:33 Pulse Rate 84 06/29/25 17:33 Respiratory Rate 18 06/29/25 17:33 Pulse Oximetry 100 06/29/25 17:33 Blood Pressure 154/81 H 06/29/25 17:33 Blood Pressure Mean 105 06/29/25 17:33 Blood Pressure Position Sitting 06/29/25 13:53 Oxygen Delivery Room Air 06/29/25 13:53 Weight 65 kg 06/29/25 13:53 Last Result - Abnormals Only RBC 1.70 M/mm3 (4.2-5.4) L 06/29/25 14:20 Hgb 5.3 g/dL (12.0-15.0) L* 06/29/25 14:20 Hct 17.0 % (37.0-47.0) L* 06/29/25 14:20 MCHC 31.2 g/dl (32-36) L 06/29/25 14:20 RDW 16.1 % (11.5-14.5) H 06/29/25 14:20 [place] % (Auto) 12.0 % (2.6-8.5) H 06/29/25 14:20 Sodium 132 mmol/L (137-145) L 06/29/25 14:20 Chloride 97 mmol/L (98-107) L 06/29/25 14:20 BUN 39 mg/dL (7-17) H 06/29/25 14:20 Creatinine 13.41 mg/dL (0.7-1.0) H 06/29/25 14:20 Estimated GFR 3 (59-) L 06/29/25 14:20 Calcium 7.2 mg/dL (8.4-10.2) L 06/29/25 14:20 TIBC 231 ug/dL (261-462) L 06/29/25 14:20 Total Protein 5.6 g/dL (6.3-8.2) L 06/29/25 14:20 Albumin 3.1 g/dL (3.5-5.1) L 06/29/25 14:20 Crossmatch See Detail 06/29/25 14:20 Most Recent Suicide Severity Rating Suicide Severity Rating NO RISK INDICATED 06/29/25 16:27
--- NOTE | 2025-06-29 17:45 | PM.IMHP2 ---
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 Patient had her monthly labs drawn on 06/25 which revealed significant anemia. Patient was admitted on 06/12/2025 with the same complaint. She required 2 units PRBC during that admission. Patient endorses mild shortness of breath recently with some increased weakness. She has bleeding internal hemorrhoids that have increased in bleeding recently but she has not blood for the past 5 days. General surgery saw the patient during her last admission for recommendations on her hemorrhoids. Patient has a follow-up appointment scheduled later this month. The plan is for her to undergo an elective hemorrhoidectomy. Patient denies constipation. Denies abdominal pain Initial vital signs 107/68, HR 71, respirations 16, afebrile and 100% on room air. Lab significant for anemia with hemoglobin 5.3 and hematocrit 17.0. Sodium 132, chloride 97, BUN 39. Creatinine 13.41 with GFR 3. Calcium chronically low at 7.2 today. TIBC 231. 2 units PRBC ordered. Review of Systems Review of Systems: All systems reviewed & are unremarkable except as noted in HPI and below PMFSH Past Medical History Medical History PAD (peripheral artery disease) Depression Hemorrhoids Hypothyroidism Hyperlipidemia Hypertension End stage renal disease Anemia Social History Social History Years smoked: 20 Smoking status: Former smoker Alcohol intake: current Drinks per week: 1 Substance use: never Lack of Transportation: No Lack of Food: Never True Current Housing: I Have Housing Concerned About Future Housing: No Difficulty Paying Gas/Electric Bills: No Difficulty Paying for Meds: No Currently Unemployed: No Education: Associate Degree Difficulty w/ Childcare or Family Care: No Spiritual care concerns: No Meds Home Medications and Allergies Home Medications ?Medication ?Instructions ?Recorded ?Confirmed ?Type acetaminophen 325 mg capsule 325 mg PO Q4H PRN pain 06/12/25 06/29/25 History aspirin 81 mg capsule 81 mg PO DAILY 06/12/25 06/29/25 History atorvastatin 20 mg tablet 20 mg PO QPM 06/12/25 06/29/25 History calcium carbonate (Maggie-[place] 1,500 mg PO BID 06/12/25 06/29/25 History Heartburn Chew) carvedilol 6.25 mg tablet 6.25 mg PO QAM 06/12/25 06/29/25 History cholecalciferol (vitamin D3) 50 50 mcg PO .evening 06/12/25 06/29/25 History mcg (2,000 unit) capsule clopidogrel 75 mg tablet 75 mg PO DAILY 06/12/25 06/29/25 History levothyroxine 112 mcg tablet 112 mcg PO QAM 06/12/25 06/29/25 History nifedipine 90 mg tablet,extended 90 mg PO QAM 06/12/25 06/29/25 History release oxycodone 5 mg tablet 5 mg PO Q6H PRN pain 06/12/25 06/29/25 History potassium chloride 20 mEq 20 meq PO DAILY 06/12/25 06/29/25 History tablet,extended release (K-Tab) sertraline 25 mg tablet 25 mg PO HS 06/12/25 06/29/25 History sevelamer carbonate 800 mg tablet 800 mg PO TID 06/12/25 06/29/25 History (Renvela) spironolactone 25 mg tablet 25 mg PO DAILY 06/13/25 06/29/25 History gabapentin 100 mg capsule 100 mg PO QHS #30 caps 06/14/25 06/29/25 Rx irbesartan 150 mg tablet 150 mg PO QAM #30 tabs 06/14/25 06/29/25 Rx witch licha 50 % topical pads 1 pad topical PRN PRN Perineal 06/14/25 06/29/25 Rx (Preparation H (Witch Licha)) Discomfort #48 ea hydrocortisone 2.5 % topical cream 1 applic RECTAL TID PRN 06/15/25 06/29/25 Rx with perineal applicator hemorrhoids #30 grams (Anusol-HC) pentoxifylline 400 mg 400 mg PO DAILY 06/29/25 06/29/25 History tablet,extended release ropinirole 0.5 mg tablet 0.5 mg PO PRN Restless leg 06/29/25 06/29/25 History Allergies Allergy/AdvReac Type Severity Reaction Status Date / Time No Known Allergies Allergy Verified 06/29/25 19:14 Vital Signs Vital Signs - 24 hr 06/29/25 13:53 06/29/25 16:18 06/29/25 16:33 Temperature 98.1 F 98.4 F 98.5 F Pulse Rate 71 78 81 Respiratory Rate 16 16 17 Blood Pressure 107/68 142/80 H 129/81 Pulse Oximetry 100 100 98 Oxygen Delivery Room Air 06/29/25 16:47 06/29/25 17:00 06/29/25 17:01 Temperature Pulse Rate 78 78 78 Respiratory Rate 17 18 20 Blood Pressure 105/91 H Pulse Oximetry 99 100 Oxygen Delivery 06/29/25 17:15 06/29/25 17:17 06/29/25 17:33 Temperature 98.6 F Pulse Rate 80 78 84 Respiratory Rate 17 13 18 Blood Pressure 157/90 H 154/81 H Pulse Oximetry 99 100 100 Oxygen Delivery Exam Narrative: GENERAL: non-toxic appearing, in no acute distress. HEAD: Normocephalic, atraumatic. EYES: PERRLA. Conjunctivae clear. NOSE: Normal no drainage. THROAT: Pharynx clear, no exudate. NECK: Trachea midline. No adenopathy, no masses. RESPIRATORY: Airway patent, respirations nonlabored. CTA. CARDIOVASCULAR: Regular rate and rhythm BREASTS: Defer GASTROINTESTINAL: Abdomen is soft and nontender. No organomegaly. Bowel sounds normal in all quadrants. GENITOURINARY: Defer MUSCULOSKELETAL: Moves all extremities. No gross deformities. SKIN: Warm, dry, normal color. NEURO: A&O X4. Speech clear PSYCHIATRIC: Normal interaction Results Labs Labs: Short CBC 06/29/25 Range/Units 14:20 WBC 5.3 (4.5-10.0) K/mm3 Hgb 5.3 L* (12.0-15.0) g/dL Hct 17.0 L* (37.0-47.0) % Plt Count 279 (150-375) k/mm3 [facility] 06/29/25 14:20 Sodium 132 L Potassium 3.7 Chloride 97 L Carbon Dioxide 30 BUN 39 H Creatinine 13.41 H Glucose 103 Calcium 7.2 L Liver Function 06/29/25 Range/Units 14:20 Total Bilirubin 0.4 (0.2-1.3) mg/dL AST 29 (14-36) U/L ALT 15 (6-35) U/L Alkaline Phosphatase 52 (38-126) U/L Albumin 3.1 L (3.5-5.1) g/dL Quality VTE Prophylaxis VTE prophylaxis: mechanical ordered Assessment and Plan Assessment and plan (1) Anemia: Qualifiers: Anemia type: due to chronic kidney disease Chronic kidney disease stage: on chronic dialysis Qualified Code(s): N18.6 - End stage renal disease; D63.1 - Anemia in chronic kidney disease; Z99.2 - Dependence on renal dialysis Code(s): D64.9 - Anemia, unspecified Status: Acute Assessment and Plan: Acute on chronic anemia. Patient has internal bleeding hemorrhoids that have increased in bleeding over the past few months this is her 2nd admission over the past 2 months due to severe anemia with a hemoglobin in the 5s. Patient states the bleeding has not occurred for the past 5 days. - 2 units PRBC - hold Plavix - trend H&H (2) Bleeding internal hemorrhoids: Code(s): K64.8 - Other hemorrhoids Status: Chronic Assessment and Plan: Bleeding internal hemorrhoids. Upcoming appointment with General surgery to discuss hemorrhoidectomy. - Continue Anusol HC - Tucks pads p.r.n. - monitor for bleeding (3) End stage renal disease: Code(s): N18.6 - End stage renal disease Status: Chronic Assessment and Plan: patient has been on PD for many years. Follows Dr. Abrams - Consult renal for PD orders while inpatient - Renvela TID with meals - calcium carbonate b.i.d. - Renal diet Plan Diet: renal DVT prophylaxis: SCDs lines/drains: PIV Fluids: 2 units PRBC Code status: full Prior Studies I have reviewed the following patient records and this information was taken into consideration when formulating the assessment and plan.: previous labs, previous ER visits, previous hospitalizations and previous clinic visits Time Spent with Patient Time with patient: 45 - 74 minutes
--- NOTE | 2025-06-29 18:00 | PM.CNNEP ---
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 Stacey Abrams (2) Anemia: Qualifiers: Anemia type: due to chronic kidney disease Chronic kidney disease stage: on chronic dialysis Qualified Code(s): N18.6 - End stage renal disease; D63.1 - Anemia in chronic kidney disease; Z99.2 - Dependence on renal dialysis Code(s): D64.9 - Anemia, unspecified Status: Acute Assessment and Plan: quite severe by outpatient and admission labs high dose PERLITA/Epogen while hospitalized PRBC transfusion per protocol follow trend of H/H presumed to be secondary to bleeding hemorrhoids has outpatient Surgery follow-up for planned operative intervention (3) Hypokalemia: Code(s): E87.6 - Hypokalemia Status: Acute Assessment and Plan: chronic issue on oral potassium supplements replete as needed (4) Hypertension: Qualifiers: Hypertension type: primary hypertension Qualified Code(s): I10 - Essential (primary) hypertension Code(s): I10 - Essential (primary) hypertension Status: Chronic Assessment and Plan: resume BP medications with parameters follow trend of hemodynamics I will continue to follow the patient with you while ahe remains hospitalized and make further recommendations as deemed necessary. Thank you for allowing me to participate in the care of this patient. History of Present Illness Reason for Consult Consult date: 06/29/25 Reason for consult: end stage renal disease Chief Complaint Chief complaint: anemia,hemorrhoids History of Present Illness Narrative: The patient is a 65-year-old female with a past medical history as outlined who presented to [facility] Emergency room due to abnormal labs, specifically, severe anemia. The patient outpatient labs done at her outpatient dialysis clinic which demonstrated significant anemia. 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 On further questioning, she does report some mild symptoms of shortness of breath in association with fatigue. She denies any melena, hematochezia, hemoptysis or hematuria. On her previus admission here at [facility] several weeks ago, it was felt her anemia was secondary to bleeding hemorrhoids and she has follow-up with Surgery to discuss operative intervention for this issue. Workup and evaluation emergency room demonstrated the patient be hemodynamically stable and afebrile. Repeat labs in the emergency room confirmed her anemia with a hemoglobin of 5.3 and hematocrit of 17.0. Her chemistry panel was consistent with her known history of end-stage renal disease without any critical electrolyte abnormalities. She was typed and crossed for 2 units of packed red blood cells and subsequently initiated on a blood transfusion with hospital admission for further evaluation and therapy. Renal consultation was requested due to her end-stage renal disease. The patient normally does peritoneal dialysis at home under the care of Dr. Stacey Abrams through [facility]. She has been on renal replacement therapy/dialysis since May of 2017. She was initially started on in-center hemodialysis but then subsequently transition to home peritoneal dialysis. From a dialysis perspective, she reports that she has been doing reasonably well. Currently, at the time my evaluation she appears to be in no acute distress. Review of Systems Review of Systems: As per HPI. [facility] Past Medical History Medical History PAD (peripheral artery disease) Depression Hemorrhoids Hypothyroidism Hyperlipidemia Hypertension End stage renal disease Anemia Social History Social History Years smoked: 20 Smoking status: Former smoker Alcohol intake: current Drinks per week: 1 Substance use: never Lack of Transportation: No Lack of Food: Never True Current Housing: I Have Housing Concerned About Future Housing: No Difficulty Paying Gas/Electric Bills: No Difficulty Paying for Meds: No Currently Unemployed: No Education: Associate Degree Difficulty w/ Childcare or Family Care: No Spiritual care concerns: No Meds Home Medications and Allergies Home Medications ?Medication ?Instructions ?Recorded ?Confirmed ?Type acetaminophen 325 mg capsule 325 mg PO Q4H PRN pain 06/12/25 06/29/25 History aspirin 81 mg capsule 81 mg PO DAILY 06/12/25 06/29/25 History atorvastatin 20 mg tablet 20 mg PO QPM 06/12/25 06/29/25 History calcium carbonate (Maggie-[place] 1,500 mg PO BID 06/12/25 06/29/25 History Heartburn Chew) carvedilol 6.25 mg tablet 6.25 mg PO Q12H 06/12/25 06/30/25 History cholecalciferol (vitamin D3) 50 50 mcg PO .evening 06/12/25 06/29/25 History mcg (2,000 unit) capsule clopidogrel 75 mg tablet 75 mg PO DAILY 06/12/25 06/29/25 History Held on 06/30/25. Instructions: Resume on 07/14/25. hold until instructed otherwise per DR Bella levothyroxine 112 mcg tablet 112 mcg PO QAM 06/12/25 06/29/25 History nifedipine 90 mg tablet,extended 90 mg PO QAM 06/12/25 06/29/25 History release oxycodone 5 mg tablet 5 mg PO Q6H PRN pain 06/12/25 06/29/25 History potassium chloride 20 mEq 20 meq PO DAILY 06/12/25 06/29/25 History tablet,extended release (K-Tab) sertraline 25 mg tablet 25 mg PO HS 06/12/25 06/29/25 History sevelamer carbonate 800 mg tablet 800 mg PO TID 06/12/25 06/29/25 History (Renvela) spironolactone 25 mg tablet 25 mg PO DAILY 06/13/25 06/29/25 History gabapentin 100 mg capsule 100 mg PO QHS #30 caps 06/14/25 06/29/25 Rx irbesartan 150 mg tablet 150 mg PO QAM #30 tabs 06/14/25 06/29/25 Rx witch praveena 50 % topical pads 1 pad topical PRN PRN Perineal 06/14/25 06/29/25 Rx (Preparation H (Witch Praveena)) Discomfort #48 ea hydrocortisone 2.5 % topical cream 1 applic RECTAL TID PRN 06/15/25 06/29/25 Rx with perineal applicator hemorrhoids #30 grams (Anusol-HC) pentoxifylline 400 mg 400 mg PO DAILY 06/29/25 06/29/25 History tablet,extended release Allergies Allergy/AdvReac Type Severity Reaction Status Date / Time No Known Allergies Allergy Verified 06/29/25 19:14 Vital Signs Vital Signs 06/29/25 13:53 06/29/25 16:18 06/29/25 16:33 Temperature 98.1 F 98.4 F 98.5 F Pulse Rate 71 78 81 Pulse Rate [Radial] Respiratory Rate 16 16 17 Blood Pressure 107/68 142/80 H 129/81 Blood Pressure [Right Arm] Pulse Oximetry 100 100 98 Oxygen Delivery Room Air 06/29/25 16:47 06/29/25 17:00 06/29/25 17:01 Temperature Pulse Rate 78 78 78 Pulse Rate [Radial] Respiratory Rate 17 18 20 Blood Pressure 105/91 H Blood Pressure [Right Arm] Pulse Oximetry 99 100 Oxygen Delivery 06/29/25 17:15 06/29/25 17:17 06/29/25 17:18 Temperature Pulse Rate 80 78 79 Pulse Rate [Radial] Respiratory Rate 17 13 20 Blood Pressure 157/90 H Blood Pressure [Right Arm] Pulse Oximetry 99 100 100 Oxygen Delivery 06/29/25 17:33 06/29/25 17:46 06/29/25 17:47 Temperature 98.6 F Pulse Rate 84 81 82 Pulse Rate [Radial] Respiratory Rate 18 17 16 Blood Pressure 154/81 H 148/85 H Blood Pressure [Right Arm] Pulse Oximetry 100 Oxygen Delivery Exam Narrative: GENERAL APPEARANCE: well developed well nourished female in no acute distress HEENT: normocephalic, atraumatic, normal conjunctiva and sclera, nares patient NECK: no lymphadenopathy, thyromegaly, or JVD MOUTH: normal lips, teeth, and gums CARDIOVASCULAR: RRR, normal S1 and S2, no rub RESPIRATORY: clear to auscultation bilaterally ABDOMEN: soft, nontender, nondistended, positive bowel sounds present EXTREMITIES: no evidence of cyanosis, clubbing, or edema NEUROLOGICAL: alert and oriented x 3; CN II - XII intact bilaterally; no focal deficits noted Results Lab Results 06/30/25 02:48 06/30/25 02:48 Lab results: Most recent lab results Calcium 7.4 mg/dL (8.4-10.2) L 06/30/25 02:48
[2025-06-30 02:31] VITALS: BP 166/102; PULSE 82; RESP 16; TEMP 36.7; O2SAT 100
[2025-06-30 02:53] LABS: Hematocrit 25.6 % (37.0-47.0); Hemoglobin 8.3 g/dL (12.0-15.0); Immature Granulocyte Percent A 0.3 % (0-0.5); Lymphocytes Absolute Auto 1.37 K/mm3 (0.9-3.2); Mean Corpuscular HGB Conc 32.4 g/dl (32-36); Mean Corpuscular Hemoglobin 30.5 pg (26-34); Mean Corpuscular Volume 94.1 fl (80-100); Nucleated Red Blood Cells Absolute Auto 0.000 K/mm3 (0.0-0.012); Nucleated Red Blood Cells Perc 0.0 % (0.0-0.2); Platelet Count Result 237 k/mm3 (150-375); Red Blood Count 2.72 M/mm3 (4.2-5.4); White Blood Count 6.3 K/mm3 (4.5-10.0)
[2025-06-30 03:09] LABS: Anion Gap 5 mmol/L (4-12); Blood Urea Nitrogen 37 mg/dL (7-17); Calcium 7.4 mg/dL (8.4-10.2); Carbon Dioxide 27 mmol/L (22-30); Chloride 102 mmol/L (98-107); Estimated CRCL calculation 3 ml/min; Estimated Glomerular Filt Rate 3; Glucose 123 mg/dL (65-110); Potassium 3.4 mmol/L (3.4-5.0); Sodium 134 mmol/L (137-145)
[2025-06-30] MEDS: LEVOTHYROXINE SODIUM 112 MCG TABLET PO (05:35)
[2025-06-30 06:00] VITALS: BP 176/107; PULSE 76; RESP 18; TEMP 36.7; O2SAT 99
[2025-06-30 07:34] VITALS: BP 176/100; PULSE 76; RESP 16; TEMP 36.7
[2025-06-30] MEDS: POTASSIUM CHLORIDE 20 MEQ ER TABLET PO (08:31)
[2025-06-30] MEDS: SPIRONOLACTONE 25 MG TABLET PO (08:31)
[2025-06-30] MEDS: IRBESARTAN 150 MG TABLET PO (08:31)
[2025-06-30] MEDS: SEVELAMER CARBONATE 800 MG TABLET PO (08:31)
[2025-06-30 08:32] VITALS: PULSE 84
[2025-06-30] MEDS: CALCIUM CARBONATE (TUMS) 500 MG (200 MG ELEMENTAL) 600 MG PO (08:32)
[2025-06-30] MEDS: ASPIRIN 81 MG ENTERIC TABLET PO (08:32)
[2025-06-30] MEDS: PENTOXIFYLLINE 400 MG TABCR PO (08:32)
--- NOTE | 2025-06-30 08:45 | P.PNNP_ITS ---
Progress Note: A&P Assessment and Plan (1) End stage renal disease: Code(s): N18.6 - End stage renal disease Status: Chronic Assessment and Plan: * continue nightly CCPD treatments * follow electrolytes, volume status, and clearance * primary process eng = Dr. Stacey Abrams (2) Anemia: Qualifiers: Anemia type: due to chronic kidney disease Chronic kidney disease stage: on chronic dialysis Qualified Code(s): N18.6 - End stage renal disease; D63.1 - Anemia in chronic kidney disease; Z99.2 - Dependence on renal dialysis Code(s): D64.9 - Anemia, unspecified Status: Acute Assessment and Plan: * quite severe by outpatient and admission labs * high dose PERLITA/Epogen while hospitalized * PRBC transfusion per protocol * follow trend of H/H * presumed to be secondary to bleeding hemorrhoids * has outpatient Surgery follow-up for planned operative intervention (3) Hypokalemia: Code(s): E87.6 - Hypokalemia Status: Acute Assessment and Plan: * chronic issue * on oral potassium supplements * replete as needed (4) Hypertension: Qualifiers: Hypertension type: primary hypertension Qualified Code(s): I10 - Essential (primary) hypertension Code(s): I10 - Essential (primary) hypertension Status: Chronic Assessment and Plan: * resume BP medications with parameters * follow trend of hemodynamics Will continue to follow. L Subjective Date/time seen: 06/30/25 08:45 Interval history: Follow-up for end stage renal disease on hemodialysis. Tolerated peritoneal dialysis treatment overnight without any issues or problems (CCPD supervised and seen at 8:35am); tolerated PRBC transfusion with appropriate incrementation in H/H; no other acute complaints voiced at the time of my visit. Exam 2 Narrative: General: WD/WN female in NAD Heart: normal S1 and S2; no rub Lungs: clear to auscultation Abdomen: soft, nontender, nondistended, positive bowel sounds Extremities: no cyanosis or clubbing; no edema Skin: warm and dry Objective Data Vital Signs Vital Signs: Vital Signs Temp Pulse Pulse Resp BP BP Pulse Ox 06/30/25 08:32 84 06/30/25 08:30 06/30/25 07:34 98.1 F 76 16 176/100 H 06/30/25 06:00 98.1 F 76 18 176/107 H 99 06/30/25 02:31 98.0 F 82 16 166/102 H 100 06/29/25 22:00 97.5 F L 78 18 100 06/29/25 19:25 97 F L 82 16 164/75 H 100 06/29/25 19:08 98 F 84 16 164/91 H 100 06/29/25 18:35 98.6 F 84 159/81 H 06/29/25 18:01 98.6 F 82 18 154/90 H 100 06/29/25 18:00 85 16 100 06/29/25 17:47 82 16 06/29/25 17:46 81 17 148/85 H 06/29/25 17:33 98.6 F 84 18 154/81 H 100 Intake/Output Intake/Output: Intake & Output 06/27/25 06/28/25 06/29/25 06/30/25 23:59 23:59 23:59 23:59 Intake Total 700 360 Output Total 2481 Balance 700 -2121 Labs Labs: Laboratory Tests 06/30/25 02:48 06/30/25 02:48 Calcium 7.4 L
--- NOTE | 2025-06-30 11:18 | P.DS_ITS ---
DS: Admitting Diagnosis Discharge Date 06/30 Admitting Diagnosis bleeding hemorrhoids DS: Discharge Diagnosis Discharge Diagnosis (1) Anemia: Qualifiers: Anemia type: due to chronic kidney disease Chronic kidney disease stage: on chronic dialysis Qualified Code(s): N18.6 - End stage renal disease; D63.1 - Anemia in chronic kidney disease; Z99.2 - Dependence on renal dialysis Code(s): D64.9 - Anemia, unspecified Status: Acute Assessment and Plan: Acute on chronic anemia. Patient has internal bleeding hemorrhoids that have increased in bleeding over the past few months this is her 2nd admission over the past 2 months due to severe anemia with a hemoglobin in the 5s. Patient states the bleeding has not occurred for the past 5 days. 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 Patient had her monthly labs drawn on 06/25 which revealed significant anemia. Patient was admitted on 06/12/2025 with the same complaint. She required 2 units PRBC during that admission. Patient endorses mild shortness of breath recently with some increased weakness. She has bleeding internal hemorrhoids that have increased in bleeding recently but she has not blood for the past 5 days. General surgery saw the patient during her last admission for recommendations on her hemorrhoids. Patient has a follow-up appointment scheduled later this month. The plan is for her to undergo an elective hemorrhoidectomy. Patient denies constipation. Denies abdominal pain Lab significant for anemia with hemoglobin 5.3 and hematocrit 17.0. Sodium 132, chloride 97, BUN 39. Creatinine 13.41 with GFR 3. Calcium chronically low at 7.2 today. TIBC 231. 2 units PRBC ordered and administered. hg improved to 8.3. She has an karri in few days with Dr Bella. Pt was instructed to hold plavix until sees DR Bella. Status at Discharge Functional status at discharge: independent ambulation Overall status at discharge: patient is progressing back to baseline Time Spent with Patient Time attestation: Total time spent providing and/or coordinating discharge services: Time spent: Greater than 30 minutes Exam Narrative: GENERAL: non-toxic appearing, in no acute distress. HEAD: Normocephalic, atraumatic. EYES: PERRLA. Conjunctivae clear. NOSE: Normal no drainage. THROAT: Pharynx clear, no exudate. NECK: Trachea midline. No adenopathy, no masses. RESPIRATORY: Airway patent, respirations nonlabored. CTA. CARDIOVASCULAR: Regular rate and rhythm BREASTS: Defer GASTROINTESTINAL: Abdomen is soft and nontender. No organomegaly. Bowel sounds normal in all quadrants. GENITOURINARY: Defer MUSCULOSKELETAL: Moves all extremities. No gross deformities. SKIN: Warm, dry, normal color. NEURO: A&O X4. Speech clear PSYCHIATRIC: Normal interaction Const: General: comfortable DS: Data Data Completed and Pending Labs on day of discharge: Labs from last 24 hours 06/30/25 06/29/25 02:48 14:20 WBC 6.3 5.3 RBC 2.72 L 1.70 L Hgb 8.3 L D 5.3 L* Hct 25.6 L 17.0 L* MCV 94.1 D 100.0 MCH 30.5 31.2 MCHC 32.4 31.2 L RDW 16.5 H 16.1 H Plt Count 237 279 MPV 8.6 8.7 Immature Gran % (Auto) 0.3 0.4 Neut % (Auto) 61.1 63.5 Lymph % (Auto) 21.9 20.5 [place] % (Auto) 13.6 H 12.0 H Eos % (Auto) 2.6 3.2 Baso % (Auto) 0.5 0.4 Lymph # (Auto) 1.37 1.08 [place] # (Auto) 0.9 H 0.6 Eos # (Auto) 0.2 0.2 Baso # (Auto) 0.0 0.0 Abs Immat Gran (auto) 0.02 0.02 Absolute Neuts (auto) 3.8 3.3 Absolute Nucleated RBC 0.000 0.000 Nucleated RBC % 0.0 0.0 PT 13.1 INR 1.0 APTT 31.2 Sodium 134 L 132 L Potassium 3.4 3.7 Chloride 102 97 L Carbon Dioxide 27 30 Anion Gap 5 5 BUN 37 H 39 H Creatinine 12.47 H 13.41 H Estim Creat Clear Calc 3 3 Estimated GFR 3 L 3 L Glucose 123 H 103 Calcium 7.4 L 7.2 L Iron 46 TIBC 231 L % Saturation 20 Total Bilirubin 0.4 AST 29 ALT 15 Alkaline Phosphatase 52 Total Protein 5.6 L Albumin 3.1 L Blood Type O Positive Antibody Screen Negative Crossmatch See Detail Discharge Plan Discharge Attending physician on discharge: Art Turcios Consulting providers: Ric Lund Discharging Clinician: Beata Galaviz Patient Disposition: Home Activity: november shower Diet: heart healthy Discharge Instructions: You were admitted for anemia and received 2 units of blood. Your numbers improved. Please f/u with DR Bella as scheduled. Do not take plavix until you see DR Bella and he gives you further instructions. If your bleeding restarts, come back to ER rig[facility] away. Patient Instructions: Antibiotic Form Patient Language: Mongolian Stand Alone Forms: General Discharge Information Follow-up/Referrals: PHYSICIAN NOT ON STAFF,NONSTAFF [Primary Care Provider] - 2 Weeks Riky Bella MD [Physician, General Surgery] - 1 Week Discharge Medications: Continued sertraline 25 mg tablet 25 mg PO HS levothyroxine 112 mcg tablet 112 mcg PO QAM potassium chloride [K-Tab] 20 mEq tablet extended release 20 meq PO DAILY [place] Heartburn Chew 300 mg (750 mg) tablet,chewable 1,500 mg PO BID acetaminophen 325 mg capsule 325 mg PO Q4H PRN (Reason: pain) nifedipine 90 mg tablet extended release 90 mg PO QAM aspirin 81 mg capsule 81 mg PO DAILY Patient Comments: Patient wants chewable atorvastatin 20 mg tablet 20 mg PO QPM carvedilol 6.25 mg tablet 6.25 mg PO Q12H oxycodone 5 mg tablet 5 mg PO Q6H PRN (Reason: pain) sevelamer carbonate [Renvela] 800 mg tablet 800 mg PO TID Rx Instructions: must administer with a meal/food cholecalciferol (vitamin D3) 50 mcg (2,000 unit) capsule 50 mcg PO .evening spironolactone 25 mg tablet 25 mg PO DAILY irbesartan 150 mg Tablet 150 mg PO QAM Qty: 30 0RF Preparation H (Katharina Hurt) 50 % Pads, Medicated 1 pad topical PRN PRN (Reason: Perineal Discomfort) Qty: 48 0RF gabapentin 100 mg capsule 100 mg PO QHS Qty: 30 0RF pentoxifylline 400 mg tablet extended release 400 mg PO DAILY hydrocortisone [Anusol-HC] 2.5 % cream with perineal applicator 1 applic RECTAL TID PRN (Reason: hemorrhoids) Qty: 30 2RF Held clopidogrel 75 mg tablet 75 mg PO DAILY Hold Instructions: Resume on 07/14/25. hold until instructed otherwise per DR Bella Date of admission: 06/29/25 16:20 Primary Care Provider: PHYSICIAN NOT ON STAFF,NONSTAFF Admitting Provider: Art Turcios Attending physician on admission: Art Turcios Condition: Stable Quality VTE Prophylaxis VTE prophylaxis: mechanical ordered Hospitalist MIPS Heart Failure (Exclusion) Patient has history of Heart Transplant or Left Ventricular Assistive Device?: No IF YES, STOP HERE Heart Failure (Qualifier) Patient has current or prior documentation of LVEF less than or equal to 40%, or mod/servere depressed LVSF?: No IF NO, STOP HERE
== END 2025-06-30 13:25 | disposition home or self-care (01) | DRG 811 ==
LOC: ANHED 14:52 → ANH3MEDSUR 17:27
PROVIDERS: Emergency Medicine; Nurse Practitioner Adult Health; Admitting Provider Family Medicine; Emergency Provider General Practice; Visit Provider Nurse Practitioner
DX: D62 Acute posthemorrhagic anemia (principal); N18.6 End stage renal disease; I12.0 Hypertensive chronic kidney disease with stage 5 chronic kidney disease or end stage renal disease; D63.1 Anemia in chronic kidney disease; I73.9 Peripheral vascular disease, unspecified; E87.6 Hypokalemia; E03.9 Hypothyroidism, unspecified; E78.5 Hyperlipidemia, unspecified; K64.8 Other hemorrhoids; F32.A Depression, unspecified; Z79.82 Long term (current) use of aspirin; Z79.02 Long term (current) use of antithrombotics/antiplatelets; Z87.891 Personal history of nicotine dependence
CPT/HCPCS: 36415; 36430; 80048; 80053; 83540; 83550; 85025; 85610; 85730; 86850; 86900; 86901; 86923; 90945; 99285; A9270; J7050; P9016